=== PATIENT | male | born 1955 | race Caucasian/White ===

== ENCOUNTER 2019-03-12 16:15 | Inpatient (IN) | payer OTHER ==
--- OUTSIDE RECORDS SUMMARY | 2019-03-12 16:28 | XMS REPORT | Continuity of Care Document ---
:1955 Author Organization [email or web address] Information [place] Care Team Providers Name Role Phone [facility] Information Exchange Unavailable Unavailable Problems Problem Status Onset Classification Date Comments Source Date Reported A FIB Active [address] A-FIB Active [address] Unspecified atrial 01/12/[address] J18.9 - PNEUMONIA, Active [facility] UNSPECIFIED ORGANIS [address] Persistent atrial 01/08/[address] AFIB Active [address] AFIB W/RVR Active [address] AORTIC STENOSIS Active [address] I48[address] AORTIC INSUFFICENCY; Active [facility] DILETED CARDIOMYPAT [address] [place] [address] UN[address] Active [address] NEW ONSET CHF Active [address] INFECTION Active [address] Nonrheumatic aortic 01/12/2019 [facility] (valve) insufficiency [facility] Nonrheumatic mitral 02/20/2018 [facility] (valve) insufficiency [facility] Pericardial effusion 02/20/2018 [facility] (noninflammatory) [facility] Atrial fibrillation Resolved Problem 01/12/2019 [facility] (disorder) [facility], LUIS Ash Hypertensive disorder, Resolved Problem 01/12/2019 [facility] systemic arterial Medical (disorder) [place], LUIS Ash Non-Hodgkin's lymphoma Resolved Problem 01/12/20191998 [facility] (disorder) [facility], LUIS Ash Psoriasis (disorder) Resolved Problem 01/12/2019 [facility], LUIS Ash Ventricular tachycardia Resolved Problem 01/12/2019 [facility] (disorder) [facility], LUIS Ash Final: Paroxysmal 05/23/2015 [facility] atrial fibrillation Medical Center Final: Unspecified 06/22/2015 [facility] atrial fibrillation Medical Center Hypercholesterolemia Resolved Problem 01/12/2019 [facility] (disorder) [facility], OPID [place] Unspecified systolic 01/05/2019 [facility] (congestive) heart Medical failure Center shelter (current) use 01/12/2019 [facility] of 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 [facility] Other specified anemias 01/12/2019 [facility] Essential (primary) 01/12/2019 [facility] hypertension [facility] Hyperlipidemia, 01/12/2019 [facility] unspecified [facility] Personal history of 01/12/2019 [facility] non-Hodgkin lymphomas Medical Center Chronic systolic 01/08/2019 [facility] (congestive) heart Medical failure Center Hypertensive heart and 01/08/2019 [facility] chronic kidney disease Medical with heart failure and Center stage 1 through stage 4 chronic kidney disease, or unspecified chronic kidney disease Chronic kidney disease, 01/08/2019 [facility] stage 2 (mild) [facility] Abnormal coagulation 01/08/2019 [facility] profile [facility] Ischemic cardiomyopathy 01/08/2019 [facility] Personal history of 01/08/2019 [facility] nicotine dependence [facility] HEART FAILURE NOS Active [facility] PAROXYSMAL ATRIAL Active [facility] FIBRILLATION [facility] UNSPECIFIED ATRIAL Active [facility] ILLNESS, UNSPECIFIED Active [facility] Medications Medication Details Route Status Patient Ordering Order Source Instructions Provider Date Diltiazem 30 mg, 1 tab, Inactive 12/16[facility] Route: PO, 2019 Medical Drug form: Center TAB, Q6H, Dosing Weight 100, kg, Start date: 12/16/18 18:00:00 CDT, Duration: 30 day, Stop date: 01/15/19 12:00:00 CDTNotes: (Same as: Cardizem) Before meals diltiazem 30 mg oral 30 mg=1 tab, Active 12/16[facility] tablet PO, Q6H, # 120 2019 Medical tab, 1 Center Refill(s) Furosemide 40 MG 40 mg=1 tab, Active 12/16[facility] Oral Tablet [Lasix] PO, BID, 0 2018 Medical Refill(s) Center Aspirin 81 MG 81 mg=1 tab, Active 12/16[facility] Enteric Coated PO, Daily, 0 2018 Medical Tablet Refill(s) [facility] 24 HR Metoprolol 100 mg=1 tab, Active 12/16[facility] Tartrate 100 MG PO, BID, # 180 2019 Medical Extended Release tab, 0 Center Tablet [Toprol] Refill(s) dofetilide 125 microgram, Inactive [place] 1 cap, Route: 2019 Medical PO, Drug form: [place] CAP, Q12H, Dosing Weight 100, kg, Priority: NOW, Start date: 12/16/18 9:12:00 CDT, Duration: 30 day, Stop date: 01/15/19 9:00:00 CDTNotes: (Same as: Tikosyn) Providers should enter the orders via the "Dofetilide Initiation Orders MPP" to ensure compliance with the REMS program. Potassium Chloride 20 mEq, 1 tab, Inactive [place] Route: PO, 2018 Medical Drug form: [place] ERTAB, ONCE, Dosing Weight 100, kg, Start date: 12/16/18 6:18:00 CDT, Stop date: 12/16/18 6:18:00 CDTNotes: (Same as: K-Dur 20) "Do Not Crush" Give with food and full glass of water For patients unable to swallow tablet, dissolve in one half glass of water. Allow about 2 minutes for the tablets to disintegrate. Stir before giving to prepare slurry and administer. Please exclude Patients with feeding tube less than 14 [place] (Dobhoff, J-tube etc) and pediatric and patients. dofetilide 125 microgram, No Longer [place] Route: PO, Active 2018 Medical Drug form: [place] BENNETT, Q12H, Dosing Weight 100, kg, Start date: 12/15/18 17:00:00 CDT, Duration: 30 day, Stop date: 01/14/19 9:00:00 CDTNotes: (Same as: Tikosyn) Providers should enter the orders via the "Dofetilide Initiation Orders MPP" to ensure compliance with the REMS program. Vitamin E 400 IntlUnit, No Longer [place] 1 cap, Route: Active 2019 Medical PO, Drug form: [place] BENNETT, QSun, Dosing Weight 100, kg, Start date: 12/15/18 9:00:00 CDT, Duration: 30 day, Stop date: 01/12/19 9:00:00 CDT Aspirin 81 mg, 1 tab, No Longer [place] Route: PO, Active 2018 Medical Drug form: [place] ECTAB, Daily, Dosing Weight 100, kg, Start date: 12/15/18 9:00:00 CDT, Duration: 30 day, Stop date: 01/13/19 9:00:00 CDTNotes: Do not crush or chew. (Same As: Ecotrin) Calcium Gluconate 3 gm, 30 mL, No Longer [place] Route: IVPB, Active 2018 Medical PRN, Dosing Center Weight 100, kg, PRN Abnormal Lab Result, For NON-ICU Patients Only., Start date: 12/15/18 5:13:00 CDT, Duration: 30 day, Stop date: 01/14/19 5:12:00 CDTNotes: WASTE: F/P - Sink; E - Municipal Trash Bin Magnesium Oxide 800 mg, 2 tab, No Longer [place] Route: PO, Active 2018 Medical Drug form: [place] TAB, PRN, Dosing Weight 100, kg, PRN Abnormal Lab Result, For NON-ICU Patients Only., Start date: 12/15/18 5:13:00 CDT, Duration: 30 day, Stop date: 01/14/19 5:12:00 CDTNotes: (Same as: Mag-Ox 400) Magnesium oxide [id number] elemental magnesium Dose=____mg magnesium oxide (___mg elemental magnesium) Magnesium Sulfate 2 gm, 50 mL, No Longer [place] Route: IVPB, Active 2018 Medical Drug form: [place] INJ, PRN, Dosing Weight 100, kg, PRN Abnormal Lab Result, For NON-ICU Patients Only., Start date: 12/15/18 5:13:00 CDT, Duration: 30 day, Stop date: 01/14/19 5:12:00 CDTNotes: WASTE: F/P - Sink; E - Municipal Trash Bin potassium phosphate 30 mmol, 10 No Longer [place] mL, Route: Active 2018 Medical IVPB, PRN, Center Dosing Weight 100, kg, PRN Abnormal Lab Result, For NON-ICU Patients Only., Start date: 12/15/18 5:13:00 CDT, Duration: 30 day, Stop date: 01/14/19 5:12:00 CDTNotes: (Same as: K Phosphate.) Do not infuse phosphorous concurrently in the same line as TPN or IVF that contains calcium. For double lumen central lines, phosphorous may be infused in a separate lumen from TPN. 1 mMol phoshate has 1.47 mEq potassium Infuse over 4 hours sodium phosphate 15 mmol, 5 mL, No Longer [place] Route: IVPB, Active 2018 Medical PRN, Dosing Center Weight 100, kg, PRN Abnormal Lab Result, For NON-ICU Patients Only., Start date: 12/15/18 5:13:00 CDT, Duration: 30 day, Stop date: 01/14/19 5:12:00 CDTNotes: Infuse over 4 hour. Do not infuse phosphorous concurrently in the same line as TPN or IVF that contains calcium. For double lumen central lines, phosphorous may be infused in a separate lumen from TPN. Potassium Chloride 20 mEq, 15 mL, No Longer [place] Route: NJ, Active 2018 Medical Drug form: [place] LIQ, PRN, Dosing Weight 100, kg, PRN Abnormal Lab Result, For NON-ICU Patients Only, Start date: 12/15/18 5:13:00 CDT, Duration: 30 day, Stop date: 01/14/19 5:12:00 CDTNotes: (Same as: Potassium Chloride) potassium 2 pkt, Route: No Longer [place] phosphate-sodium PO, Drug Form: Active 2018 Medical phosphate 250 mg-280 PDR/REC, Center mg-160 mg oral Dosing Weight powder for 100, kg, PRN, reconstitution PRN Abnormal Lab Result, For NON-ICU Patients Only, Start date: 12/15/18 5:13:00 CDT, Duration: 30 day, Stop date: 01/14/19 5:12:00 CDTNotes: (Same as: Phos-NaK) Each 1.5 gm pkt has 250mg phosphorous. Mix w/2.5oz water and stir. dofetilide 250 microgram, Inactive [place] 1 cap, Route: 2019 Medical PO, Drug form: [place] CAP, TID, Dosing Weight 100, kg, Start date: 12/15/18 1:10:00 CDT, Duration: 30 day, Stop date: 01/14/19 1:00:00 CDTNotes: (Same as: Tikosyn) Providers should enter the orders via the "Dofetilide Initiation Orders MPP" to ensure compliance with the REMS program. dofetilide 250 microgram, No Longer [facility] 1 cap, Route: Active 2018 Medical PO, Drug form: Center CAP, TID, Dosing Weight 100, kg, Start date: 12/14/18 17:40:00 CDT, Duration: 30 day, Stop date: 01/13/19 17:00:00 CDTNotes: (Same as: Tikosyn) Providers should enter the orders via the "Dofetilide Initiation Orders MPP" to ensure compliance with the REMS program. 24 HR Metoprolol 100 mg, 1 tab, No Longer [place] Tartrate 100 MG Route: PO, Active 2018 Medical Extended Release Drug form: Center Tablet [Toprol] ERTAB, BID, Start date: 12/14/18 9:00:00 CDT, Duration: 30 day, Stop date: 01/12/19 21:00:00 CDTNotes: (Same as: Toprol XL) May split tab, but do not crush. dofetilide 250 microgram, Inactive [facility] 1 cap, Route: 2019 Medical PO, Drug form: Center CAP, TID, Dosing Weight 100, kg, Start date: 12/14/18 8:00:00 CDT, Duration: 30 day, Stop date: 01/12/19 22:00:00 CDTNotes: (Same as: Tikosyn) Providers should enter the orders via the "Dofetilide Initiation Orders MPP" to ensure compliance with the REMS program. potassium chloride 40 mEq, 2 tab, Inactive [place] 20 mEq oral tablet, Route: PO, 2019 Medical extended release Drug form: Center ERTAB, ONCE, Dosing Weight 100, kg, Start date: 12/14/18 7:29:00 CDT, Stop date: 12/14/18 7:29:00 CDTNotes: (Same as: K-Dur 20) "Do Not Crush" Give with food and full glass of water For patients unable to swallow tablet, dissolve in one half glass of water. Allow about 2 minutes for the tablets to disintegrate. Stir before giving to prepare slurry and administer. Please exclude Patients with feeding tube less than 14 [place] (Halley Joyner-tube etc) and pediatric and patients. dofetilide 500 microgram, Inactive [place] 1 cap, Route: 2019 Medical PO, Drug form: [place] CAP, ONCE, Dosing Weight 100, kg, Start date: 12/13/18 21:00:00 CDT, Stop date: 12/13/18 21:00:00 CDTNotes: (Same as: Tikosyn) Providers should enter the orders via the "Dofetilide Initiation Orders MPP" to ensure compliance with the REMS program. 24 HR Metoprolol 100 mg, 1 tab, Inactive [place] Tartrate 100 MG Route: PO, 2018 Medical Extended Release Drug form: [place] Tablet [Toprol] ERTAB, Daily, Start date: 12/13/18 9:00:00 CDT, Duration: 30 day, Stop date: 01/11/19 9:00:00 CDTNotes: (Same as: Toprol XL) May split tab, but do not crush. Tylenol 650 mg, 2 tab, No Longer [place] Route: PO, Active 2018 Medical Drug form: Center TAB, Q6H, Dosing Weight 100, kg, PRN Pain 1-3/Temp > 100.4 F, Start date: 12/12/18 19:08:00 CDT, Duration: 30 day, Stop date: 01/11/19 19:07:00 CDTNotes: Do not exceed 4 gm/day. (Same as: Tylenol) Folic Acid 1 mg, Route: Inactive [facility] PO, Drug form: 2019 Medical TAB, Daily, Center Dosing Weight 100, kg, Start date: 12/12/18 9:00:00 CDT, Duration: 30 day, Stop date: 01/10/19 9:00:00 CDT Glucosamine 1,500 mg, Inactive [facility] Route: PO, 2019 Medical Drug form: Center TAB, Daily, Dosing Weight 100, kg, Start date: 12/12/18 9:00:00 CDT, Duration: 30 day, Stop date: 01/10/19 9:00:00 CDT Cholecalciferol 2000 4,000 No Longer [place] UNT Oral Tablet IntlUnit, 2 Active 2019 Medical tab, Route: Center PO, Drug form: TAB, Daily, Dosing Weight 100, kg, Start date: 12/12/18 9:00:00 CDT, Duration: 30 day, Stop date: 01/10/19 9:00:00 CDTNotes: (Same as: Vitamin D3) Allopurinol 300 mg, 1 tab, No Longer [place] Route: PO, Active 2019 Medical Drug form: Center TAB, Daily, Dosing Weight 97.727, kg, Start date: 12/12/18 9:00:00 CDT, Duration: 30 day, Stop date: 01/10/19 9:00:00 CDTNotes: (Same as: Zyloprim) multivitamin with 1 tab, Route: No Longer [place] minerals PO, Drug Form: Active 2019 Medical TAB, Dosing Center Weight 100, kg, Daily, Start date: 12/12/18 9:00:00 CDT, Duration: 30 day, Stop date: 01/10/19 9:00:00 CDTNotes: (Same as:Thera-M, Theragran-M) WASTE: F/P - Black; E - Municipal Trash Bin Give with food. valsartan 80 mg, 1 tab, No Longer [place] Route: PO, Active 2018 Medical Drug form: [place] TAB, Daily, Dosing Weight 97.727, kg, Start date: 12/12/18 9:00:00 CDT, Duration: 30 day, Stop date: 01/10/19 9:00:00 CDTNotes: Same as Diovan 24 HR Metoprolol 75 mg, 3 tab, Inactive [place] Tartrate 25 MG Route: PO, 2019 Medical Extended Release Drug form: [place] Tablet [Toprol] ERTAB, Daily, Start date: 12/12/18 9:00:00 CDT, Duration: 30 day, Stop date: 01/10/19 9:00:00 CDTNotes: (Same as: Toprol XL) Do Not Crush Vitamin C 500 mg, 1 tab, No Longer [place] Route: PO, Active 2019 Medical Drug form: [place] TAB, Daily, Dosing Weight 100, kg, Start date: 12/12/18 9:00:00 CDT, Duration: 30 day, Stop date: 01/10/19 9:00:00 CDTNotes: (Same as: Vitamin C) Aspirin 325 MG Oral 325 mg, 1 tab, No Longer [facility] Tablet Route: PO, Active 2018 Medical Drug form: [place] TAB, Daily, Dosing Weight 100, kg, Start date: 12/12/18 9:00:00 CDT, Duration: 30 day, Stop date: 01/10/19 9:00:00 CDTNotes: Take with food. rosuvastatin 10 mg, 1 tab, No Longer [facility] Route: PO, Active 2018 Medical Drug form: [place] TAB, Bedtime, Dosing Weight 97.727, kg, Start date: 12/11/18 21:00:00 CDT, Duration: 30 day, Stop date: 01/09/19 21:00:00 CDTNotes: (Same As: Crestor) dofetilide 250 microgram, No Longer [facility] 1 cap, Route: Active 2018 Medical PO, Drug form: [place] CAP, Q12H, Dosing Weight 100, kg, Start date: 12/11/18 21:00:00 CDT, Duration: 30 day, Stop date: 01/10/19 9:00:00 CDTNotes: (Same as: Tikosyn) Providers should enter the orders via the "Dofetilide Initiation Orders MPP" to ensure compliance with the REMS program. Xarelto 20 mg, 1 tab, No Longer [facility] Route: PO, Active 2018 Medical Drug form: [place] TAB, QPM, Dosing Weight 97.727, kg, Start date: 12/11/18 17:00:00 CDT, Duration: 30 day, Stop date: 01/09/19 17:00:00 CDTNotes: (Same as: Xarelto) Administer with food Furosemide 40 MG 40 mg, 1 tab, No Longer [facility] Oral Tablet [Lasix] Route: PO, Active 2018 Medical Drug form: [place] TAB, BID, Dosing Weight 97.727, kg, Start date: 12/11/18 17:00:00 CDT, Duration: 30 day, Stop date: 01/10/19 9:00:00 CDTNotes: (Same as: Lasix) May cause GI upset. Give with food or milk. potassium chloride 40 mEq, 2 tab, Inactive [place] 20 mEq oral tablet, Route: PO, 2019 Medical extended release Drug form: [place] ERTAB, ONCE, Dosing Weight 100, kg, Start date: 12/11/18 16:59:00 CDT, Stop date: 12/11/18 16:59:00 CDTNotes: (Same as: K-Dur 20) "Do Not Crush" Give with food and full glass of water For patients unable to swallow tablet, dissolve in one half glass of water. Allow about 2 minutes for the tablets to disintegrate. Stir before giving to prepare slurry and administer. Please exclude Patients with feeding tube less than 14 [place] (Dobhoff, J-tube etc) and pediatric and patients. diltiazem 30 mg oral 30 mg=1 tab, No Longer [place] tablet PO, Q6H, # 120 Active 2018 Medical tab, 0 Center Refill(s), Pharmacy: [facility]/pharmacy #[id number] Atrial Fibrillation 80 mg, 1 tab, Inactive [place] Sotalol Route: PO, 2018 Medical Hydrochloride 80 MG Drug form: [place] Oral Tablet TAB, Q12H, Dosing Weight 97.813, kg, Priority: NOW, Start date: 06/20/18 13:45:00 CAR BRACER, Duration: 30 day, Stop date: 07/20/18 9:00:00 CSTNotes: (Same As: Betapace) Furosemide 40 MG 40 mg, 1 tab, No Longer [place] Oral Tablet [Lasix] Route: PO, Active 2017 Medical Drug form: [place] TAB, Daily, Dosing Weight 100, kg, Start date: 06/20/18 9:00:00 CAR BRACER, Duration: 30 day, Stop date: 07/19/18 9:00:00 CSTNotes: (Same as: Lasix) May cause GI upset. Give with food or milk. Allopurinol 300 mg, 1 tab, No Longer [place] Route: PO, Active 2017 Medical Drug form: [place] TAB, Daily, Dosing Weight 100, kg, Start date: 06/20/18 9:00:00 CAR BRACER, Duration: 30 day, Stop date: 07/19/18 9:00:00 CSTNotes: (Same as: Zyloprim) Vitamin E 400 IntlUnit, No Longer [facility] 1 cap, Route: Active 2018 Medical PO, Drug form: [place] CAP, qWeek, Dosing Weight 100, kg, Start date: 06/20/18 9:00:00 CAR BRACER, Duration: 30 day, Stop date: 07/18/18 9:00:00 CAR BRACER Hydrochlorothiazide 1 tab, Route: No Longer [facility] 12.5 MG / valsartan PO, Dosing Active 2018 Medical 80 MG Oral Tablet Weight 100, Center [Diovan HCT 80/12.5] kg, Daily, Start date: 06/20/18 9:00:00 CAR BRACER, Duration: 30 day, Stop date: 07/19/18 9:00:00 CAR BRACER Vitamin D3 2000 intl 2,000 No Longer [facility] units oral tablet IntlUnit, 2 Active 2017 Medical tab, Route: [place] PO, Drug form: TAB, Daily, Dosing Weight 100, kg, Start date: 06/20/18 9:00:00 CAR BRACER, Duration: 30 day, Stop date: 07/19/18 9:00:00 CSTNotes: Same as : Vitamin D3 Folic Acid 1 mg, 1 tab, No Longer [facility] Route: PO, Active 2017 Medical Drug form: Center TAB, Daily, Dosing Weight 100, kg, Start date: 06/20/18 9:00:00 CAR BRACER, Duration: 30 day, Stop date: 07/19/18 9:00:00 CSTNotes: (Same as: Folvite) Atrial Fibrillation 160 mg, 2 tab, No Longer [facility] Sotalol Route: PO, Active 2018 Medical Hydrochloride 80 MG Drug form: Center Oral Tablet TAB, Q12H, Dosing Weight 100, kg, Start date: 06/20/18 9:00:00 CAR BRACER, Duration: 30 day, Stop date: 07/19/18 21:00:00 CSTNotes: (Same As: Betapace) Vitamin C 500 mg, 1 tab, No Longer [facility] Route: PO, Active 2017 Medical Drug form: Center TAB, Daily, Dosing Weight 100, kg, Start date: 06/20/18 9:00:00 CAR BRACER, Duration: 30 day, Stop date: 07/19/18 9:00:00 CSTNotes: (Same as: Vitamin C) Microzide 12.5 mg, 1 No Longer [place] cap, Route: Active 2017 Medical PO, Drug form: [place] CAP, Daily, Start date: 06/20/18 9:00:00 CAR BRACER, Duration: 30 day, Stop date: 07/19/18 9:00:00 CAR BRACER Aspirin 325 mg, 1 tab, No Longer [facility] Route: PO, Active 2017 Medical Drug form: [place] ECTAB, Daily, Dosing Weight 100, kg, Priority: Routine, Start date: 06/20/18 9:00:00 CAR BRACER, Duration: 30 day, Stop date: 07/19/18 9:00:00 CSTNotes: (Do Not Crush) Do not crush or chew. Glucosamine 1,500 mg, No Longer [facility] Chondroitin MSM Route: PO, Active 2017 Medical Complex Dosing Weight [place] 100, kg, Daily, Start date: 06/20/18 9:00:00 CAR BRACER, Duration: 30 day, Stop date: 07/19/18 9:00:00 CAR BRACER valsartan 80 mg, 1 tab, No Longer [facility] Route: PO, Active 2017 Medical Drug form: [place] TAB, Daily, Start date: 06/20/18 9:00:00 CAR BRACER, Duration: 30 day, Stop date: 07/19/18 9:00:00 CAR BRACER Atrial Fibrillation 160 mg, 2 tab, No Longer [facility] Sotalol Route: PO, Active 2017 Medical Hydrochloride 80 MG Drug form: [place] Oral Tablet TAB, Q12H, Dosing Weight 100, kg, Start date: 06/19/18 23:00:00 CAR BRACER, Duration: 30 day, Stop date: 07/19/18 11:00:00 CAR BRACER Crestor 10 mg, 1 tab, No Longer [facility] Route: PO, Active 2017 Medical Drug form: [place] TAB, Bedtime, Dosing Weight 100, kg, Start date: 06/19/18 21:00:00 CAR BRACER, Duration: 30 day, Stop date: 07/18/18 21:00:00 CSTNotes: (Same As: Crestor) sotalol 160 mg oral 160 mg=1 tab, No Longer [facility] tablet PO, BID Active 2017 [facility] Betapace AF 80 mg, 1 tab, Inactive [place] Route: PO, 2017 Medical Drug form: [place] TAB, ONCE, Dosing Weight 100, kg, Priority: NOW, Start date: 06/19/18 18:02:00 CAR BRACER, Stop date: 06/19/18 18:02:00 CAR BRACER Diltiazem 30 mg, 1 tab, No Longer [place] Route: PO, Active 2017 Medical Drug form: [place] TAB, Q6H, Dosing Weight 100, kg, Start date: 06/19/18 18:00:00 CAR BRACER, Duration: 30 day, Stop date: 07/19/18 12:00:00 CAR BRACER Xarelto 20 mg, 1 tab, No Longer [place] Route: PO, Active 2017 Medical Drug form: [place] TAB, QPM, Dosing Weight 100, kg, Start date: 06/19/18 17:00:00 CAR BRACER, Duration: 30 day, Stop date: 07/18/18 17:00:00 CSTNotes: (Same as: Xarelto) Administer with food Atrial Fibrillation 80 mg, 1 tab, Inactive [place] Sotalol Route: PO, 2017 Medical Hydrochloride 80 MG Drug form: [place] Oral Tablet TAB, ONCE, Dosing Weight 100, kg, Priority: NOW, Start date: 06/19/18 16:16:00 CAR BRACER, Stop date: 06/19/18 16:16:00 CSTNotes: Non-Formulary Drug (Same As: Betapace AF) Tylenol 650 mg, 20.3 No Longer [place] mL, Route: PO, Active 2017 Medical Drug form: [place] LIQ, Q6H, Dosing Weight 100, kg, PRN Pain Score 1-5, Start date: 06/19/18 15:51:00 CAR BRACER, Duration: 30 day, Stop date: 07/19/18 15:50:00 CSTNotes: Max acetaminophen= 4000mg/day (4 gm/day). (Same as: Tylenol) Albuterol / 3 mL, Route: No Longer [place] Ipratropium NEB, Drug Active 2017 Medical Form: SOLN, [place] Dosing Weight 100, kg, Q6H, PRN Other -See Comment, Start date: 06/19/18 15:44:00 CAR BRACER, Duration: 30 day, Stop date: 01/11/19 15:43:00 CAR BRACER, shorthenss of breathNotes: (Same as: Duoneb) Versed 3 mg, Route: No Longer [place] IVP, ONCE, Active 2017 Medical Dosing Weight Center 100, kg, Start date: 06/17/18 15:52:00 CAR BRACER, Stop date: 06/17/18 15:52:00 CAR BRACER Rosuvastatin calcium 10 mg=1 tab, Active [place] 10 MG Oral Tablet PO, Daily, 0 2017 Medical [Crestor] Refill(s) Center allopurinol 300 mg 300 mg=1 tab, Active [place] oral tablet PO, Daily, 0 2017 Medical Refill(s) Center Vitamin E 400 IntlUnit, No Longer [place] 1 cap, Route: Active 2014 Medical PO, Drug form: [place] DONALD, QSun, Dosing Weight 94.318, kg, Start date: 06/20/15 9:00:00, Duration: 30 day, Stop date: 07/18/15 9:00:00 valsartan 80 mg oral 80 mg=1 tab, Active [place] tablet PO, Daily, # 2015 Medical 60 tab, 0 Center Refill(s) rivaroxaban 20 mg 20 mg=1 tab, Active [place] oral tablet PO, QPM, # 60 2014 Medical tab, 0 Center Refill(s) Furosemide 40 MG 40 mg=1 tab, Active [place] Oral Tablet [Lasix] PO, Daily, # 2015 Medical 60 tab, 0 Center Refill(s) sotalol 120 mg oral 120 mg=1 tab, Active [place] tablet PO, BID, # 180 2014 Medical tab, 0 Center Refill(s) 24 HR Metoprolol 25 mg=1 tab, Inactive [place] Tartrate 25 MG PO, Daily, # 2015 Medical Extended Release 90 tab, 0 Center Tablet [Toprol] Refill(s) Furosemide 40 MG 40 mg=1 tab, Inactive [place] Oral Tablet [Lasix] PO, Daily, # 2015 Medical 60 tab, 0 Center Refill(s) cholecalciferol 2000 2,000 Active [place] intl units oral IntlUnit=1 2014 Medical capsule cap, PO, BID, Center 0 Refill(s) Vitamin E 400 IntlUnit=1 Active [place] cap, PO, QSun, 2015 Medical 0 Refill(s) Center sotalol 80 mg oral 160 mg=2 tab, Inactive [place] tablet PO, Q12H, # 2015 Medical 240 tab, 0 Center Refill(s) valsartan 80 mg oral 40 mg=0.5 tab, Inactive [place] tablet PO, Daily, # 2015 Medical 30 tab, 0 Center Refill(s) rivaroxaban 20 mg 20 mg=1 tab, Inactive [place] oral tablet PO, QPM, # 60 2014 Medical tab, 0 Center Refill(s) Betapace 120 mg, 1.5 No Longer [place] tab, Route: Active 2014 Medical PO, Drug form: Center TAB, Q12H, Start date: 06/18/15 21:00:00, Stop date: 07/18/15 9:00:00Notes: (Same As: Betapace) Sotalol 40 mg, 0.5 Inactive [place] tab, Route: 2014 Medical PO, Drug form: Center TAB, ONCE, Dosing Weight 91.364, kg, Priority: STAT, Start date: 06/18/15 11:03:00, Stop date: 06/18/15 11:03:00Notes: (Same As: Betapace) Metoprolol 2.5 mg, 2.5 No Longer [place] mL, Route: Active 2014 Medical IVP, Drug Center form: INJ, Q4H, Dosing Weight 92.472, kg, PRN Tachycardia, Start date: 06/16/15 17:12:00, Duration: 30 day, Stop date: 07/16/15 17:11:00Notes: (Same as: Lopressor) Push over 2 minutes Sotalol 160 mg, Route: No Longer [place] Hydrochloride 120 MG PO, Drug form: Active 2014 Medical Oral Tablet TAB, Q12H, Center Dosing Weight 92.472, kg, Start date: 06/16/15 9:00:00, Duration: 30 day, Stop date: 07/15/15 21:00:00Notes: (Same As: Betapace) potassium chloride 20 mEq, 1 tab, Inactive [place] Route: PO, 2014 Medical Drug form: [facility] ERTAB, ONCE, Dosing Weight 92.472, kg, Start date: 06/16/15 6:26:00, Stop date: 06/16/15 6:26:00Notes: (Same as: K-Dur 20) "Do Not Crush" With food and full glass of water Mucinex 600 mg, 1 tab, No Longer [place] Route: PO, Active 2014 Medical Drug form: [facility] ERTAB, Q12H, Dosing Weight 92.472, kg, Start date: 06/15/15 21:00:00, Duration: 3 day, Stop date: 06/18/15 9:00:00Notes: (Same as: Guaifenesin [place], Humibid [place], Mucinex) "Do Not Crush" Take medication with plenty of water. Protonix 40 mg, 1 tab, No Longer [place] Route: PO, Active 2014 Medical Drug form: [facility] ECTAB, Before Dinner, Dosing Weight 92.472, kg, Start date: 06/15/15 16:30:00, Duration: 30 day, Stop date: 07/14/15 16:30:00Notes: Tablet should not be chewed or crushed. (Same as: Protonix) potassium chloride 20 mEq, Route: Inactive [place] PO, Drug form: 2014 Medical ERTAB, ONCE, [facility] Dosing Weight 92.472, kg, Start date: 06/15/15 9:53:00, Stop date: 06/15/15 9:53:00 Diovan 80 mg, 1 tab, No Longer [facility] Route: PO, Active 2014 Medical Drug form: Center TAB, Daily, Dosing Weight 94.318, kg, Start date: 06/15/15 9:00:00, Stop date: 07/14/15 9:00:00Notes: Same as Diovan multivitamin 1 tab, Route: No Longer [place] PO, Drug Form: Active 2014 Medical TAB, Dosing Center Weight 94.318, kg, Daily, Start date: 06/15/15 9:00:00, Duration: 30 day, Stop date: 07/14/15 9:00:00Notes: (Same as:Thera) Take with food. Aspirin 325 mg, 1 tab, No Longer [facility] Route: PO, Active 2014 Medical Drug form: [facility] ECTAB, Daily, Dosing Weight 94.318, kg, Start date: 06/15/15 9:00:00, Duration: 30 day, Stop date: 07/14/15 9:00:00Notes: (Do Not Crush) Do not crush or chew. Glucosamine 1,500 mg, No Longer [facility] Chondroitin MSM Route: PO, Active 2014 Medical Complex Dosing Weight Center 94.318, kg, Daily, Start date: 06/15/15 9:00:00, Duration: 30 day, Stop date: 07/14/15 9:00:00 potassium chloride 20 mEq, 1 tab, No Longer [facility] Route: PO, Active 2014 Medical Drug form: [facility] ERTAB, Daily, Dosing Weight 94.318, kg, Start date: 06/15/15 9:00:00, Duration: 30 day, Stop date: 07/14/15 9:00:00Notes: (Same as: K-Dur 20) "Do Not Crush" With food and full glass of water Furosemide 40 MG 40 mg, 1 tab, No Longer [facility] Oral Tablet [Lasix] Route: PO, Active 2014 Medical Drug form: [facility] TAB, Daily, Dosing Weight 94.318, kg, Start date: 06/15/15 9:00:00, Duration: 30 day, Stop date: 07/14/15 9:00:00Notes: (Same as: Lasix) May cause GI upset. Give with food or milk. Folic Acid 1 mg, 1 tab, No Longer [facility] Route: PO, Active 2014 Medical Drug form: [facility] TAB, Daily, Dosing Weight 94.318, kg, Start date: 06/15/15 9:00:00, Duration: 30 day, Stop date: 07/14/15 9:00:00Notes: (Same as: Folvite) glucosamine 1,500 mg, 3 No Longer [facility] cap, Route: Active 2014 Medical PO, Drug form: [facility] CAP, Daily, Start date: 06/15/15 9:00:00, Duration: 30 day, Stop date: 07/14/15 9:00:00 Vitamin C 500 mg, 2 tab, No Longer [place] Route: CHEW, Active 2014 Medical Drug form: [facility] TAB, Daily, Dosing Weight 94.318, kg, Start date: 06/15/15 9:00:00, Duration: 30 day, Stop date: 07/14/15 9:00:00Notes: (Same as: Vitamin C) potassium chloride 20 mEq, 1 tab, Inactive [place] Route: PO, 2014 Medical Drug form: [facility] ERTAB, ONCE, Dosing Weight 92.472, kg, Start date: 06/15/15 8:21:00, Stop date: 06/15/15 8:21:00Notes: (Same as: K-Dur 20) "Do Not Crush" With food and full glass of water Crestor 10 mg, 1 tab, No Longer [place] Route: PO, Active 2014 Medical Drug form: [facility] TAB, Bedtime, Dosing Weight 94.318, kg, Start date: 06/14/15 21:00:00, Duration: 30 day, Stop date: 07/13/15 21:00:00Notes: (Same As: Crestor) Non-formulary Sotalol 80 mg, 1 tab, No Longer [place] Route: PO, Active 2014 Medical Drug form: [facility] TAB, Q12H, Dosing Weight 94.318, kg, Start date: 06/14/15 17:00:00, Stop date: 07/14/15 5:00:00Notes: (Same As: Betapace) Xarelto 20 mg, 1 tab, No Longer [place] Route: PO, Active 2014 Medical Drug form: [facility] TAB, QPM, Dosing Weight 94.318, kg, Start date: 06/14/15 17:00:00, Duration: 30 day, Stop date: 07/13/15 17:00:00Notes: (Same as: Xarelto) Administer with food 24 HR Metoprolol 25 mg, 1 tab, No Longer [place] Tartrate 50 MG Route: PO, Active 2014 Medical Extended Release Drug form: [facility] Tablet [Toprol] ERTAB, BID, Start date: 06/14/15 17:00:00, Stop date: 07/14/15 9:00:00Notes: (Same as: Toprol XL) Do Not Crush Vitamin D3 2,000 No Longer [place] IntlUnit, 1 Active 2014 Medical cap, Route: [facility] PO, Drug form: CAP, BID, Dosing Weight 94.318, kg, Start date: 06/14/15 17:00:00, Duration: 30 day, Stop date: 07/14/15 9:00:00Notes: Same as: Vitamin D3 potassium chloride 20 mEq, 1 tab, No Longer [place] Route: PO, Active 2014 Medical Drug form: [facility] ERTAB, Daily, Dosing Weight 94.318, kg, Start date: 05/21/15 9:00:00, Duration: 30 day, Stop date: 06/19/15 9:00:00Notes: (Same as: K-Dur 20) "Do Not Crush" With food and full glass of water Multaq 400 mg, 1 tab, Inactive [place] Route: PO, 2014 Medical Drug form: [facility] TAB, BID, Dosing Weight 94.318, kg, Start date: 05/20/15 17:00:00, Duration: 30 day, Stop date: 06/19/15 9:00:00Notes: Same as: Multaq potassium chloride 20 mEq, PO, Active [place] Daily, 0 2014 Medical Refill(s) [facility] dronedarone 400 mg 400 mg=1 tab, Active [place] oral tablet PO, BID, 0 2014 Medical Refill(s) [facility] 24 HR Metoprolol PO, BID, 0 Active [facility] Tartrate 50 MG Refill(s) 2014 Medical Extended Release [facility] Tablet [Toprol] Potassium Chloride 20 mEq, 1 tab, Inactive [place] 20 MEQ Extended Route: PO, 2014 Medical Release Tablet Drug form: [facility] ERTAB, ONCE, Dosing Weight 94.318, kg, Start date: 05/20/15 10:42:00, Stop date: 05/20/15 10:42:00Notes: (Same as: K-Dur 20) "Do Not Crush" With food and full glass of water Furosemide 40 MG 40 mg, 1 tab, No Longer [place] Oral Tablet Route: PO, Active 2014 Medical Drug form: Center TAB, Every Other Day, Dosing Weight 94.318, kg, Start date: 05/19/15 9:00:00, Duration: 30 day, Stop date: 06/16/15 9:00:00Notes: (Same as: Lasix) May cause GI upset. Give with food or milk. Vitamin D3 2,000 unit, 2 No Longer [place] tab, Route: Active 2014 Medical PO, Drug form: Center TAB, Daily, Dosing Weight 94.318, kg, Start date: 05/19/15 9:00:00, Duration: 30 day, Stop date: 06/17/15 9:00:00Notes: Same as : Vitamin D3 Lidocaine 2 gm, 250 mL, No Longer [place] Rate: Infuse Active 2014 Medical as directed, Center Dosing Weight 94.318, kg, Route: IV, Total Volume: 250 mL, Start date: 05/19/15 8:00:00, Duration: 30 day, Stop date: 06/18/15 7:59:00, Replace Every: 24 hrNotes: Premix final conc=8 mg/ml (Same as: Xylocaine Premix) Vitamin D3 2000 intl 1,000 unit, 1 Inactive [place] units oral tablet tab, Route: 2014 Medical PO, Drug form: Center TAB, Daily, Dosing Weight 94.318, kg, Start date: 05/18/15 9:00:00, Duration: 30 day, Stop date: 06/16/15 9:00:00Notes: Same as : Vitamin D3 Vitamin C 500 mg, 2 tab, No Longer [place] Route: PO, Active 2014 Medical Drug form: Center TAB, Daily, Dosing Weight 94.318, kg, Start date: 05/18/15 9:00:00, Duration: 30 day, Stop date: 06/16/15 9:00:00Notes: (Same as: Vitamin C) Aspirin 325 MG Oral 325 mg, 1 tab, No Longer [place] Tablet Route: PO, Active 2014 Medical Drug form: Center TAB, Daily, Dosing Weight 94.318, kg, Start date: 05/18/15 9:00:00, Duration: 30 day, Stop date: 06/16/15 9:00:00Notes: Take with food. Vitamin E 400 IntlUnit, No Longer [place] 1 cap, Route: Active 2014 Medical PO, Drug form: [facility] CAP, Daily, Dosing Weight 94.318, kg, Start date: 05/18/15 9:00:00, Duration: 30 day, Stop date: 06/16/15 9:00:00 Diovan 320 mg, 2 tab, No Longer [place] Route: PO, Active 2014 Medical Drug form: Center TAB, Daily, Dosing Weight 94.318, kg, Start date: 05/18/15 9:00:00, Duration: 30 day, Stop date: 06/16/15 9:00:00Notes: Same as Diovan 24 HR Metoprolol 50 mg, 1 tab, No Longer [place] Tartrate 25 MG Route: PO, Active 2014 Medical Extended Release Drug form: [facility] Tablet [Toprol] ERTAB, BID, Start date: 05/18/15 9:00:00, Stop date: 06/16/15 21:00:00Notes: (Same as: Toprol XL) May split tab, but do not crush. Centrum Route: PO, No Longer [place] Drug Form: Active 2014 Medical TAB, Dosing Center Weight 94.318, kg, Daily, Start date: 05/18/15 9:00:00, Duration: 30 day, Stop date: 06/16/15 9:00:00Notes: (Same as:Thera-M, Theragran-M) Give with food. Glucosamine 1,500 mg, 3 No Longer [place] cap, Route: Active 2014 Medical PO, Drug form: [facility] CAP, Daily, Dosing Weight 94.318, kg, Start date: 05/18/15 9:00:00, Duration: 30 day, Stop date: 06/16/15 9:00:00 Folic Acid 1 mg, 1 tab, No Longer [place] Route: PO, Active 2014 Medical Drug form: [facility] TAB, Daily, Dosing Weight 94.318, kg, Start date: 05/18/15 9:00:00, Duration: 30 day, Stop date: 06/16/15 9:00:00Notes: (Same as: Folvite) dofetilide 250 microgram, Inactive [place] 1 cap, Route: 2015 Medical PO, Drug form: [facility] CAP, ONCE, Start date: 05/18/15 8:43:00, Stop date: 05/18/15 8:43:00Notes: (Same as: Tikosyn) Providers should enter the orders via the "Dofetilide Initiation Orders MPP" to ensure compliance with the [employer]S program. Mag-Ox 400 400 mg, 1 tab, Inactive [place] Route: PO, 2014 Medical Drug form: [facility] TAB, ONCE, Dosing Weight 94.318, kg, Start date: 05/18/15 8:23:00, Stop date: 05/18/15 8:23:00Notes: (Same as: Mag-Ox 400) Magnesium oxide [id number] elemental magnesium Dose=____mg magnesium oxide (___mg elemental magnesium) potassium chloride 20 mEq, 1 tab, Inactive [place] Route: PO, 2014 Medical Drug form: [facility] ERTAB, ONCE, Dosing Weight 94.318, kg, Start date: 05/18/15 8:22:00, Stop date: 05/18/15 8:22:00Notes: (Same as: K-Dur 20) "Do Not Crush" With food and full glass of water Protonix 40 mg, 1 tab, No Longer [place] Route: PO, Active 2014 Medical Drug form: [facility] ECTAB, Before Breakfast, Dosing Weight 94.318, kg, Start date: 05/18/15 7:30:00, Duration: 30 day, Stop date: 06/16/15 7:30:00Notes: Tablet should not be chewed or crushed. (Same as: Protonix) Crestor 10 mg, 1 tab, No Longer [place] Route: PO, Active 2014 Medical Drug form: [facility] TAB, Bedtime, Dosing Weight 94.318, kg, Start date: 05/17/15 21:00:00, Duration: 30 day, Stop date: 06/15/15 21:00:00Notes: (Same As: Crestor) Non-formulary dofetilide 500 microgram, No Longer [place] 2 cap, Route: Active 2014 Medical PO, Drug form: [facility] CAP, [id number], Start date: 05/17/15 18:00:00, Stop date: 06/16/15 6:00:00Notes: (Same as: Tikosyn) Providers should enter the orders via the "Dofetilide Initiation Orders MPP" to ensure compliance with the REMS program. Xarelto 20 mg, 1 tab, No Longer [place] Route: PO, Active 2014 Medical Drug form: [facility] TAB, QPM, Dosing Weight 94.318, kg, Start date: 05/17/15 17:00:00, Duration: 30 day, Stop date: 06/15/15 17:00:00Notes: (Same as: Xarelto) Administer with food potassium chloride 40 mEq, 2 tab, Inactive [place] Route: PO, 2014 Medical Drug form: [facility] ERTAB, ONCE, Dosing Weight 94.318, kg, Start date: 05/17/15 15:14:00, Stop date: 05/17/15 15:14:00Notes: (Same as: K-Dur 20) "Do Not Crush" With food and full glass of water potassium chloride 10 mEq=1 cap, Active 03/02[facility] 10 mEq oral capsule, PO, Daily, # 2015 Medical extended release 30 cap, 0 Center Refill(s) propafenone 150 mg 150 mg=1 tab, Active 03/02[facility] oral tablet PO, Q8H, # 90 2014 Medical tab, 1 Center Refill(s) Vitamin D3 2000 intl PO, Daily, 0 Active 03/02[facility] units oral tablet Refill(s) 2014 [facility] 24 HR Metoprolol 75 mg=3 tab, Active 03/02[facility] Tartrate 25 MG PO, Daily, # 2015 Medical Extended Release 90 tab, 0 Center Tablet [Toprol] Refill(s) magnesium oxide 400 400 mg=1 tab, Active 03/02[facility] mg oral tablet PO, Daily, X 2014 Medical 30 day, # 30 Center tab, 0 Refill(s) Furosemide 40 MG 40 mg=1 tab, Active 03/02[facility] Oral Tablet PO, Daily, # 2015 Medical 30 tab, 0 Center Refill(s) valsartan 320 MG 320 mg=1 tab, Active 03/02[facility] Oral Tablet [Diovan] PO, Daily, # 2015 Medical 30 tab, 0 Center Refill(s) Rosuvastatin calcium 10 mg=1 tab, Active [facility] 10 MG Oral Tablet PO, Bedtime, # 2015 Medical [Crestor] 30 tab, 0 Center Refill(s) rivaroxaban 20 MG 20 mg=1 tab, Active [facility] Oral Tablet PO, QPM, # 30 2015 Medical [Xarelto] tab, 1 Center Refill(s) Vitamin D3 1000 intl 4,000 Inactive [facility] units oral tablet IntlUnit, 4 2014 Medical tab, Route: [facility] PO, Drug form: TAB, Daily, Dosing Weight 98.636, kg, Start date: 03/02/15 9:00:00, Stop date: 03/31/15 9:00:00Notes: Same as : Vitamin D3 potassium chloride 20 mEq, 1 tab, Inactive [place] Route: PO, 2014 Medical Drug form: [facility] ERTAB, ONCE, Dosing Weight 98.636, kg, Start date: 03/01/15 9:01:00, Stop date: 03/01/15 9:01:00Notes: (Same as: K-Dur 20) "Do Not Crush" With food and full glass of water Lasix 40 mg, 1 tab, No Longer [facility] Route: PO, Active 2014 Medical Drug form: [facility] TAB, Daily, Dosing Weight 100, kg, Start date: 03/01/15 9:00:00, Duration: 30 day, Stop date: 03/30/15 9:00:00Notes: (Same as: Lasix) May cause GI upset. Give with food or milk. Mag-Ox 400 400 mg, 1 tab, No Longer [place] Route: PO, Active 2014 Medical Drug form: [facility] TAB, Daily, Dosing Weight 98.636, kg, Start date: 02/28/15 9:00:00, Duration: 30 day, Stop date: 03/29/15 9:00:00Notes: (Same as: Mag-Ox 400) Magnesium oxide [id number] elemental magnesium Dose=____mg magnesium oxide (___mg elemental magnesium) potassium chloride 20 mEq, 1 tab, Inactive [facility] Route: PO, 2014 Medical Drug form: [facility] ERTAB, ONCE, Dosing Weight 98.636, kg, Start date: 02/28/15 7:07:00, Stop date: 02/28/15 7:07:00Notes: (Same as: K-Dur 20) "Do Not Crush" With food and full glass of water Magnesium Sulfate 2 gm, 50 mL, Inactive [place] Route: IVPB, 2014 Medical Drug form: [facility] INJ, ONCE, Dosing Weight 98.636, kg, Total dose=2 gm, Start date: 02/27/15 10:18:00, Duration: 1 doses or times, Stop date: 02/27/15 10:18:00 potassium chloride 40 mEq, 2 tab, Inactive [place] Route: PO, 2014 Medical Drug form: [facility] ERTAB, ONCE, Dosing Weight 98.636, kg, Start date: 02/27/15 10:18:00, Stop date: 02/27/15 10:18:00Notes: (Same as: Jeanne-Pina 20) "Do Not Crush" With food and full glass of water Aspirin 325 mg, 1 tab, No Longer [facility] Route: PO, Active 2014 Medical Drug form: [facility] TAB, Daily, Dosing Weight 100, kg, Start date: 02/27/15 9:00:00, Duration: 30 day, Stop date: 03/28/15 9:00:00Notes: Take with food. Glucosamine 500 mg, Route: No Longer [facility] PO, Drug form: Active 2014 Medical CAP, Daily, Center Dosing Weight 100, kg, Start date: 02/27/15 9:00:00, Duration: 30 day, Stop date: 03/28/15 9:00:00 Folic Acid 1 mg, 1 tab, No Longer [facility] Route: PO, Active 2014 Medical Drug form: [facility] TAB, Daily, Dosing Weight 100, kg, Start date: 02/27/15 9:00:00, Duration: 30 day, Stop date: 03/28/15 9:00:00Notes: (Same as: Folvite) 24 HR Metoprolol 75 mg, 1.5 No Longer [place] Tartrate 50 MG tab, Route: Active 2014 Medical Extended Release PO, Drug form: [facility] Tablet [Toprol] ERTAB, Daily, Start date: 02/27/15 9:00:00, Duration: 30 day, Stop date: 03/28/15 9:00:00Notes: (Same as: Toprol XL) May split tab, but do not crush. Diovan 320 mg, 2 tab, No Longer [facility] Route: PO, Active 2014 Medical Drug form: Center TAB, Daily, Dosing Weight 100, kg, Start date: 02/27/15 9:00:00, Duration: 30 day, Stop date: 03/28/15 9:00:00Notes: Same as Diovan Vitamin D3 2000 intl 2,000 No Longer [facility] units oral tablet IntlUnit, Active 2014 Medical Route: PO, [facility] Daily, Dosing Weight 100, kg, Start date: 02/27/15 9:00:00, Duration: 30 day, Stop date: 03/28/15 9:00:00 Vitamin D3 4,000 No Longer [facility] IntlUnit, 2 Active 2014 Medical cap, Route: Center PO, Drug form: CAP, Daily, Dosing Weight 100, kg, Start date: 02/27/15 9:00:00, Duration: 30 day, Stop date: 03/28/15 9:00:00Notes: Same as: Vitamin D3 Vitamin C 500 mg, 1 tab, No Longer [facility] Route: PO, Active 2014 Medical Drug form: Center TAB, Daily, Dosing Weight 100, kg, Start date: 02/27/15 9:00:00, Duration: 30 day, Stop date: 03/28/15 9:00:00Notes: (Same as: Vitamin C) multivitamin 1 tab, Route: No Longer [facility] PO, Drug Form: Active 2014 Medical TAB, Dosing Center Weight 100, kg, Daily, Start date: 02/27/15 9:00:00, Duration: 30 day, Stop date: 03/28/15 9:00:00Notes: (Same as:Thera) Take with food. Protonix 40 mg, 1 tab, No Longer [facility] Route: PO, Active 2014 Medical Drug form: [facility] ECTAB, Before Breakfast, Dosing Weight 100, kg, Start date: 02/27/15 7:30:00, Duration: 30 day, Stop date: 03/28/15 7:30:00Notes: Tablet should not be chewed or crushed. (Same as: Protonix) diltiazem 12 hour 60 mg, Route: Inactive [place] extended release PO, Q12H, 2014 Medical Dosing Weight Center 100, kg, Start date: 02/26/15 21:00:00, Duration: 30 day, Stop date: 03/28/15 9:00:00 Crestor 10 mg, 1 tab, No Longer [place] Route: PO, Active 2014 Medical Drug form: Center TAB, Bedtime, Dosing Weight 100, kg, Start date: 02/26/15 21:00:00, Duration: 30 day, Stop date: 03/27/15 21:00:00Notes: (Same As: Crestor) Aspirin 325 MG Oral 325 mg=1 tab, Active [place] Tablet PO, Daily, # 2015 Medical 90 tab, 0 Center Refill(s) glucosamine 1,500 mg=1 Active [place] hydrochloride 1500 tab, PO, 2014 Medical mg oral tablet Daily, # 30 Center tab, 0 Refill(s) valsartan 320 MG 320 mg=1 tab, No Longer [place] Oral Tablet [Diovan] PO, Daily, # Active 2014 Medical 30 tab, 0 Center Refill(s) propafenone 225 mg 225 mg=1 cap, No Longer [place] oral capsule, PO, Q12H, # 60 Active 2014 Medical extended release cap, 0 Center Refill(s) rivaroxaban 20 MG 20 mg=1 tab, No Longer [place] Oral Tablet PO, QPM, # 30 Active 2014 Medical [Xarelto] tab, 3 Center Refill(s) vitamin E 400 intl 400 IntlUnit=1 Active [place] units oral capsule cap, PO, 2014 Medical weekly, # 30 Center cap, 0 Refill(s)Speci al Instructions: weekly Folic Acid 1 MG Oral 1 mg=1 tab, Active [place] Tablet PO, Daily, # 2015 Medical 90 tab, 0 Center Refill(s) Vitamin D3 1000 intl 1,000 No Longer [place] units oral capsule IntlUnit=1 Active 2014 Medical cap, PO, Center Daily, # 75 cap, 0 Refill(s) Rosuvastatin calcium 10 mg=1 tab, No Longer [place] 10 MG Oral Tablet PO, Bedtime, # Active 2015 Medical [Crestor] 90 tab, 0 Center Refill(s) 24 HR Metoprolol 75 mg=3 tab, No Longer [place] Tartrate 25 MG PO, Daily, # Active 2015 Medical Extended Release 90 tab, 1 Center Tablet [Toprol] Refill(s) Vitamin C 500 mg 500 mg=1 tab, Active [place] oral tablet PO, Daily, # 2015 Medical 30 tab, 0 Center Refill(s) Centrum 1 tablet, PO, Active [place] Daily, 0 2014 Medical Refill(s) Center Xarelto 20 mg, 1 tab, No Longer [place] Route: PO, Active 2014 Medical Drug form: [facility] TAB, QPM, Dosing Weight 100, kg, Start date: 02/26/15 17:00:00, Duration: 30 day, Stop date: 03/27/15 17:00:00Notes: (Same as: Xarelto) Administer with food Lasix 20 mg, 1 tab, No Longer [place] Route: PO, Active 2014 Medical Drug form: [facility] TAB, BID, Dosing Weight 100, kg, Start date: 02/26/15 17:00:00, Stop date: 03/28/15 9:00:00Notes: (Same as: Lasix) May cause GI upset. Give with food or milk. Propafenone 150 mg, 1 tab, No Longer [place] Route: PO, Active 2014 Medical Drug form: [facility] TAB, Q8H, Dosing Weight 100, kg, Start date: 02/26/15 16:00:00, Duration: 30 day, Stop date: 03/28/15 8:00:00Notes: (Same as: Rythmol) Cefuroxime 500 MG 500 mg, 1 tab, No Longer [place] Oral Tablet Route: PO, Active 2014 Medical Drug form: [facility] TAB, [id number], Dosing Weight 100, kg, Start date: 02/26/15 15:00:00, Stop date: 03/01/15 21:00:00Notes: With food. (Same As: Ceftin) Vitamin E 400 IntlUnit, No Longer [facility] 1 cap, Route: Active 2014 Medical PO, Drug form: [facility] CAP, qWeek, Dosing Weight 100, kg, Start date: 02/26/15 15:00:00, Duration: 30 day, Stop date: 03/26/15 9:00:00 Albuterol 0.83 MG/ML 2.49 mg, 3 mL, No Longer [facility] Inhalant Solution Route: NEB, Active 2014 Medical Drug form: [facility] SOLN, RQ8H, Dosing Weight 100, kg, PRN Respiratory Protocol, Start date: 02/26/15 14:55:00, Duration: 30 day, Stop date: 03/28/15 14:54:00Notes: SEE RT DOCUMENTATION (Same as: Proventil) Lasix 40 mg, Route: Inactive 02/26[facility] IV, ONCE, 2014 Medical Dosing Weight Center 100, kg, Start date: 02/26/15 14:41:00, Stop date: 02/26/15 14:41:00 diltiazem 12 hour 60 mg, 1 cap, Inactive 02/26[facility] extended release Route: PO, 2014 Medical Drug form: [facility] ERCAP, ONCE, Dosing Weight 100, kg, Start date: 02/26/15 13:50:00, Stop date: 02/26/15 13:50:00Notes: (Same as: Cardizem SR) Diltiazem 25 mg, 5 mL, Inactive 02/26[facility] Route: IVP, 2014 Medical Drug form: [facility] INJ, ONCE, Dosing Weight 100, kg, Priority: STAT, Start date: 02/26/15 13:16:00, Stop date: 02/26/15 13:16:00Notes: (Same as: Cardizem) Albuterol 0.833 3 mL, Route: Inactive 02/26[facility] MG/ML / Ipratropium INHALATION, 2014 Medical [place] 0.167 MG/ML Dosing Weight [facility] Inhalant Solution 100, kg, ONCE, [[id number]] Start date: 02/26/15 11:15:00, Stop date: 02/26/15 11:15:00 Allergies, Adverse Reactions, Alerts Substance Category Reaction Severity Reaction Status Date Comments Source type Reported Demerol Assertion Drug Active [facility] Immunizations No Data Provided for This Section Results Order Name Results Value Reference Date Interpretation Comments Source Range CHEM PANEL eGFR 67 12/16 Result Comment: The Medical eGFR is Center calculated using the CKD-EPI formula. In most young, healthy individuals the eGFR will be >90 mL/min/1.73m2 . The eGFR declines with age. An eGFR of 60-89 may be normal in some populations, particularly the elderly, for whom the CKD-EPI formula has not been extensively validated. Use of the eGFR is not recommended in the following populations:< br/>
Sasha viduals with unstable creatinine concentration s, including patients and those with serious co-morbid conditions.<b r/>
Patie nts with extremes in muscle mass or diet.

The data above are obtained from the National Kid[employer] Education Program (NKDEP) which additionally recommends that when the eGFR is used in patients with extremes of body mass index for purposes of drug dosing, the eGFR should be multiplied by the estimated BMI. CHEM PANEL AGAP 11.9 10.0 - 12/16 [facility] 20.0 [facility] CHEM PANEL Calcium Lvl 9.0 8.5 - 10.5 12/[address] CHEM PANEL Chloride Lvl 104 95 - 109 12/[address] CHEM PANEL CO2 28 24 - 32 12/[address] CHEM PANEL Potassium Lvl 3.9 3.5 - 5.1 12/[address] CHEM PANEL Creatinine 1.16 0.50 - 12/16 [facility] Lvl 1.40 [facility] CHEM PANEL Sodium Lvl 140 135 - 145 12/[address] CHEM PANEL Glucose Lvl 105 70 - 99 12/[address] CHEM PANEL BUN 23 7 - 22 12/[address] CHEM PANEL Magnesium Lvl 2.3 1.8 - 2.4 12/[address] CHEM PANEL Phosphorus 4.7 2.5 - 4.5 12/[address] HEMATOLOGY RDW 14.8 11.5 - 12/16 [facility] 14.5 [facility] HEMATOLOGY MCHC 33.5 32.0 - 12/16 [facility] 36.0 [facility] HEMATOLOGY MCH 33.2 27.0 - 12/16 31.0 [facility] HEMATOLOGY MCV 98.9 80.0 - 12/16 [facility] 94.0 [facility] HEMATOLOGY Hct 43.7 42.0 - 12/16 54.0 [facility] HEMATOLOGY MPV 9.8 7.4 - 10.4 12/[address] HEMATOLOGY Platelet 149 133 - 450 12/16 2018 [facility] HEMATOLOGY Hgb 14.7 14.0 - 12/16 [place] 18.0 [facility] HEMATOLOGY RBC 4.42 4.70 - 12/16 [place] 6.10 [facility] HEMATOLOGY WBC 4.1 3.7 - 10.4 12/[address] HEMATOLOGY Eosinophils # 0.2 0.0 - 0.5 12/16 2018 [facility] HEMATOLOGY Lymphocytes # 0.9 1.0 - 5.5 12/[address] HEMATOLOGY Monocytes # 0.7 0.0 - 0.8 12/16 2018 [facility] HEMATOLOGY Neutrophils # 2.3 1.5 - 8.1 12/16 2018 [facility] HEMATOLOGY Basophils 1.1 0.0 - 1.0 12/[address] HEMATOLOGY Eosinophils 4.7 0.0 - 4.0 12/16 2018 [facility] HEMATOLOGY Monocytes 17.8 2.0 - 12.0 12/[address] HEMATOLOGY Lymphocytes 21.0 20.0 - 12/16 [facility] 40.0 [facility] HEMATOLOGY Segs 55.4 45.0 - 12/16 75.0 [facility] CHEM PANEL eGFR 58 12/15 Result Comment: The Medical eGFR is Center calculated using the CKD-EPI formula. In most young, healthy individuals the eGFR will be >90 mL/min/1.73m2 . The eGFR declines with age. An eGFR of 60-89 may be normal in some populations, particularly the elderly, for whom the CKD-EPI formula has not been extensively validated. Use of the eGFR is not recommended in the following populations:< br/>
Sasha viduals with unstable creatinine concentration s, including patients and those with serious co-morbid conditions.<b r/>
Patie nts with extremes in muscle mass or diet.

The data above are obtained from the National Kidney Disease Education Program (NKDEP) which additionally recommends that when the eGFR is used in patients with extremes of body mass index for purposes of drug dosing, the eGFR should be multiplied by the estimated BMI. CHEM PANEL CO2 29 24 - 32 12/[address] CHEM PANEL AGAP 9.8 10.0 - 12/15 [facility] 20.0 [facility] CHEM PANEL Calcium Lvl 9.8 8.5 - 10.5 12/[address] CHEM PANEL Sodium Lvl 139 135 - 145 12/[address] CHEM PANEL Potassium Lvl 3.8 3.5 - 5.1 12/[address] CHEM PANEL Chloride Lvl 104 95 - 109 12/[address] CHEM PANEL Creatinine 1.31 0.50 - 12/15 [facility] Lvl 1.40 [facility] CHEM PANEL BUN 24 7 - 22 12/[address] CHEM PANEL Glucose Lvl 159 70 - 99 12/[address] CHEM PANEL Phosphorus 4.7 2.5 - 4.5 12/[address] CHEM PANEL Magnesium Lvl 2.4 1.8 - 2.4 12/[address] ELECTROLYTE AGAP 9.0 10.0 - 12/15 [facility] S . [facility] ELECTROLYTE eGFR 60 12/15 Result [facility] Comment: The Medical eGFR is Center calculated using the CKD-EPI formula. In most young, healthy individuals the eGFR will be >90 mL/min/1.73m2 . The eGFR declines with age. An eGFR of 60-89 may be normal in some populations, particularly the elderly, for whom the CKD-EPI formula has not been extensively validated. Use of the eGFR is not recommended in the following populations:< br/>
Sasha viduals with unstable creatinine concentration s, including patients and those with serious co-morbid conditions.<b r/>
Patie nts with extremes in muscle mass or diet.

The data above are obtained from the National Kidney Disease Education Program (NKDEP) which additionally recommends that when the eGFR is used in patients with extremes of body mass index for purposes of drug dosing, the eGFR should be multiplied by the estimated BMI. ELECTROLYTE Calcium Lvl 8.9 8.5 - 10.5 12/[address] ELECTROLYTE Glucose Lvl 104 70 - 99 12/[address] ELECTROLYTE Creatinine 1.26 0.50 - 12/15 [facility] S Lvl 1.40 /2018 [facility] ELECTROLYTE Sodium Lvl 140 135 - 145 12/[address] ELECTROLYTE CO2 27 24 - 32 / [address] ELECTROLYTE Potassium Lvl 4.0 3.5 - 5.1 12/[address] ELECTROLYTE Chloride Lvl 108 95 - 109 12/[address] ELECTROLYTE BUN 27 7 - 22 12/[address] HEMATOLOGY PTT 40.8 22.9 - 12/15 [place] 35.8 [facility] HEMATOLOGY INR 2.02 0.85 - 12/15 [place] 1.17 [facility] HEMATOLOGY PT 22.4 12.0 - 12/15 [facility] 14.7 [facility] HEMATOLOGY RDW 14.7 11.5 - 12/15 [facility] 14.5 [facility] HEMATOLOGY MCH 33.8 27.0 - 0609 [place] 31.0 /2019 [facility] HEMATOLOGY MCHC 33.6 32.0 - 12/15 [facility] 36.0 [facility] HEMATOLOGY Hct 43.9 42.0 - 12/15 [place] 54.0 [facility] HEMATOLOGY RBC 4.37 4.70 - 12/15 [place] 6.10 /2018 [facility] HEMATOLOGY Hgb 14.8 14.0 - 12/15 [place] 18.0 [facility] HEMATOLOGY WBC 4.7 3.7 - 10.4 12/[address] HEMATOLOGY MCV 100.5 80.0 - 12/15 [place] 94.0 [facility] HEMATOLOGY MPV 9.6 7.4 - 10.4 12/[address] HEMATOLOGY Platelet 149 133 - 450 12/[address] HEMATOLOGY Basophils 1.1 0.0 - 1.0 / [address] HEMATOLOGY Monocytes 16.4 2.0 - 12.0 12/[address] HEMATOLOGY Eosinophils 4.4 0.0 - 4.0 12/[address] HEMATOLOGY Segs 58.2 45.0 - 12/15 [facility] 75.0 2019 [facility] HEMATOLOGY Lymphocytes 19.9 20.0 - 12/15 [facility] 40.0 2019 [facility] HEMATOLOGY Macrocyte 1+ None Seen 12/15 [facility] *ABN* /2018 [facility] (12/15/18 1:02 AM) [facility] HEMATOLOGY Monocytes # 0.8 0.0 - 0.8 12/[address] HEMATOLOGY Basophils # 0.1 0.0 - 0.2 12/[address] HEMATOLOGY Eosinophils # 0.2 0.0 - 0.5 12/[address] HEMATOLOGY Lymphocytes # 0.9 1.0 - 5.5 12/[address] HEMATOLOGY Neutrophils # 2.8 1.5 - 8.1 12/[address] PARATHYROID Ca Norm WB 1.00 1.05 - 12/15 [facility] PROFILE 08.02 [facility] PARATHYROID Ca Ion WB 0.98 1.05 - 12/15 [facility] PROFILE 08.02 [facility] CHEM PANEL Phosphorus 4.6 2.5 - 4.5 12/[address] CHEM PANEL Magnesium Lvl 2.4 1.8 - 2.4 12/[address] HEMATOLOGY Eosinophils 5.3 0.0 - 4.0 12/[address] HEMATOLOGY Basophils 0.9 0.0 - 1.0 12/[address] HEMATOLOGY Lymphocytes 16.0 20.0 - 08 [facility] 40.0 2019 [facility] HEMATOLOGY Neutrophils # 2.7 1.5 - 8.1 12/[address] HEMATOLOGY Segs 60.1 45.0 - 06/08 [facility] 75.0 2019 [facility] HEMATOLOGY Monocytes # 0.8 0.0 - 0.8 06/ [address] HEMATOLOGY Eosinophils # 0.2 0.0 - 0.5 12/[address] HEMATOLOGY Monocytes 17.7 2.0 - 12.0 / [address] HEMATOLOGY Lymphocytes # 0.7 1.0 - 5.5 / [address] HEMATOLOGY Hgb 14.5 14.0 - 06/08 [facility] 18.0 /2019 [facility] HEMATOLOGY WBC 4.4 3.7 - 10.4 12/14 [facility]2018 [facility] HEMATOLOGY Platelet 152 133 - 450 06 [facility]2018 [facility] HEMATOLOGY MPV 9.9 7.4 - 10.4 12/[address] HEMATOLOGY RBC 4.34 4.70 - 12/14 [place] 6.10 [facility] HEMATOLOGY Hct 43.0 42.0 - 12/14 [place] 54.0 [facility] HEMATOLOGY MCV 99.1 80.0 - 12/14 [facility] 94.0 [facility] HEMATOLOGY RDW 14.9 11.5 - 12/14 [facility] 14.5 [facility] HEMATOLOGY MCH 33.5 27.0 - 12/14 [facility] 31.0 [facility] HEMATOLOGY MCHC 33.8 32.0 - 12/14 [facility] 36.0 [facility] CARDIAC BNP 251 <=100 12/11 [facility] ENZYMES pg/mL /2018 [facility] CHEM PANEL A/G Ratio 0.9 0.7 - 1.6 12/[address] CHEM PANEL Globulin 3.6 2.7 - 4.2 12/[address] CHEM PANEL B/C Ratio 21 6 - 25 12/[address] CHEM PANEL Bili Total 0.4 0.2 - 1.3 12/[address] CHEM PANEL Alk Phos 58 39 - [address] CHEM PANEL Albumin Lvl 3.4 3.5 - 5.0 12/[address] CHEM PANEL ALT 31 0 - [address] CHEM PANEL Total Protein 7.0 6.4 - 8.4 12/[address] CHEM PANEL AST 32 0 - 37 06/ [facility]2018 [facility] HEMATOLOGY PTT 34.8 22.9 - 06/05 [place] 35.8 2019 [facility] HEMATOLOGY INR 1.45 0.85 - 12/11 [place] 1.17 [facility] HEMATOLOGY PT 17.3 12.0 - 06/05 [facility] 14.7 2019 [facility] CHEM PANEL Magnesium Lvl 2.3 1.8 - 2.4 06/[address] ELECTROLYTE AGAP 15.0 10.0 - 12 [facility] S 20.0 [facility] ELECTROLYTE eGFR 55 06/24 Result [facility] Comment: The Medical eGFR is Center calculated using the CKD-EPI formula. In most young, healthy individuals the eGFR will be >90 mL/min/1.73m2 . The eGFR declines with age. An eGFR of 60-89 may be normal in some populations, particularly the elderly, for whom the CKD-EPI formula has not been extensively validated. Use of the eGFR is not recommended in the following populations:< br/>
Sasha viduals with unstable creatinine concentration s, including patients and those with serious co-morbid conditions.<b r/>
Patie nts with extremes in muscle mass or diet.

The data above are obtained from the National Kidney Disease Education Program (NKDEP) which additionally recommends that when the eGFR is used in patients with extremes of body mass index for purposes of drug dosing, the eGFR should be multiplied by the estimated BMI. ELECTROLYTE Glucose Lvl 115 70 - 99 06/24 [facility]2017 [facility] ELECTROLYTE BUN 47 7 - 22 06/[address] ELECTROLYTE Creatinine 1.35 0.50 - 06/24 [facility] S Lvl 1.40 /2017 [facility] ELECTROLYTE Sodium Lvl 144 135 - 145 06/[address] ELECTROLYTE Potassium Lvl 4.0 3.5 - 5.1 06/[address] ELECTROLYTE Chloride Lvl 107 95 - 109 06/[address] ELECTROLYTE CO2 26 24 - 32 06/[address] ELECTROLYTE Calcium Lvl 9.4 8.5 - 10.5 06/24 [facility]2017 [facility] HEMATOLOGY PTT 35.5 22.9 - 06/24 [place] 35.8 [facility] HEMATOLOGY INR 1.59 0.85 - 06/24 [place] 1. [facility] HEMATOLOGY PT 18.6 12.0 - 06/24 [place] 14.7 [facility] HEMATOLOGY MCH 32.9 27.0 - 06/24 [place] 31.0 [facility] HEMATOLOGY MCV 99.3 80.0 - 06/24 [place] 94.0 [facility] HEMATOLOGY MCHC 33.1 32.0 - 06/24 [place] 36.0 [facility] HEMATOLOGY RDW 13.8 11.5 - 06/24 [place] 14.5 /2017 [facility] HEMATOLOGY Platelet 223 133 - 450 06/24 2017 [facility] HEMATOLOGY MPV 9.2 7.4 - 10.4 06/24 2017 [facility] HEMATOLOGY Hct 40.4 42.0 - 06/24 [place] 54.0 /2017 [facility] HEMATOLOGY Hgb 13.4 14.0 - 06/24 [place] 18.0 [facility] HEMATOLOGY RBC 4.07 4.70 - 06/24 [place] 6.10 [facility] HEMATOLOGY WBC 5.3 3.7 - 10.4 06/[address] HEMATOLOGY Monocytes # 0.7 0.0 - 0.8 06/24 [facility]2017 [facility] HEMATOLOGY Eosinophils # 0.1 0.0 - 0.5 06/24 2017 [facility] HEMATOLOGY Neutrophils # 3.7 1.5 - 8.1 06/[address] HEMATOLOGY Basophils 0.6 0.0 - 1.0 06/24 2017 [facility] HEMATOLOGY Eosinophils 2.6 0.0 - 4.0 06/[address] HEMATOLOGY Lymphocytes 12.8 20.0 - 06/24 [place] 40.0 [facility] HEMATOLOGY Segs 70.1 45.0 - 06/24 [place] 75.0 2018 [facility] HEMATOLOGY Monocytes 13.9 2.0 - 12.0 06/[address] HEMATOLOGY Lymphocytes # 0.7 1.0 - 5.5 06/[address] CHEM PANEL Phosphorus 4.8 2.5 - 4.5 06/[address] CHEM PANEL eGFR 66 06/21 Result Comment: The Medical eGFR is Center calculated using the CKD-EPI formula. In most young, healthy individuals the eGFR will be >90 mL/min/1.73m2 . The eGFR declines with age. An eGFR of 60-89 may be normal in some populations, particularly the elderly, for whom the CKD-EPI formula has not been extensively validated. Use of the eGFR is not recommended in the following populations:< br/>
Sasha viduals with unstable creatinine concentration s, including patients and those with serious co-morbid conditions.<b r/>
Patie nts with extremes in muscle mass or diet.

The data above are obtained from the National Kidney Disease Education Program (NKDEP) which additionally recommends that when the eGFR is used in patients with extremes of body mass index for purposes of drug dosing, the eGFR should be multiplied by the estimated BMI. CHEM PANEL Calcium Lvl 8.5 8.5 - 10.5 06/[address] CHEM PANEL CO2 24 24 - [address] CHEM PANEL Glucose Lvl 117 70 - 99 06/[address] CHEM PANEL Creatinine 1.17 0.50 - 06/21 [facility] Lvl 1.40 /2017 [facility] CHEM PANEL BUN 32 7 - 22 06/[address] CHEM PANEL Sodium Lvl 140 135 - 145 06/[address] CHEM PANEL Potassium Lvl 3.8 3.5 - 5.1 06/[address] CHEM PANEL Chloride Lvl 107 95 - 109 06/[address] CHEM PANEL AGAP 12.8 10.0 - 06/21 [place] 20.0 [facility] CHEM PANEL Magnesium Lvl 2.1 1.8 - 2.4 06/[address] HEMATOLOGY RDW 14.1 11.5 - 06/21 [place] 14.5 [facility] HEMATOLOGY Platelet 182 133 - 450 06/[address] HEMATOLOGY MPV 9.7 7.4 - 10.4 06/[address] HEMATOLOGY Hct 40.3 42.0 - 06/21 [place] 54.0 [facility] HEMATOLOGY MCH 33.3 27.0 - 06/21 [place] 31.0 [facility] HEMATOLOGY MCV 97.7 80.0 - 06/21 [place] 94.0 [facility] HEMATOLOGY MCHC 34.1 32.0 - 06/21 [place] 36.0 [facility] HEMATOLOGY WBC 5.2 3.7 - 10.4 06/[address] HEMATOLOGY Hgb 13.8 14.0 - 06/21 [place] 18.0 [facility] HEMATOLOGY RBC 4.13 4.70 - 06/21 [place] 6.10 [facility] HEMATOLOGY INR 1.94 0.85 - 06/21 [place] 1.17 [facility] HEMATOLOGY PT 21.7 12.0 - 12 [place] 14.7 /2017 [facility] HEMATOLOGY PTT 40.0 22.9 - 06/21 [place] 35.8 /2017 [facility] HEMATOLOGY Lymphocytes # 0.8 1.0 - 5.5 06/21 /2017 [facility] HEMATOLOGY Monocytes # 0.8 0.0 - 0.8 12 2017 [facility] HEMATOLOGY Eosinophils # 0.2 0.0 - 0.5 06/21 /2017 [facility] HEMATOLOGY Basophils # 0.1 0.0 - 0.2 06/21 /2017 [facility] HEMATOLOGY Eosinophils 4.2 0.0 - 4.0 06/21 2017 [facility] HEMATOLOGY Basophils 1.1 0.0 - 1.0 06/21 /2017 [facility] HEMATOLOGY Neutrophils # 3.3 1.5 - 8.1 06/21 /2017 [facility] HEMATOLOGY Lymphocytes 15.2 20.0 - 06/21 [place] 40.0 [facility] HEMATOLOGY Monocytes 15.9 2.0 - 12.0 06/21 [facility] HEMATOLOGY Segs 63.6 45.0 - 06/21 [place] 75.0 [facility] CARDIAC Troponin-T <0.010 0.000 - 06/20 [facility] ENZYMES 0.100 [facility] CARDIAC Troponin-I <0.02 0.00 - 06/20 [facility] ENZYMES 0.40 [facility] CARDIAC Total CK 102 12 - 191 06/20 [facility] ENZYMES [address] CARDIAC CK MB Index 2.0 0.0 - 2.5 06/20 [facility] ENZYMES /2017 [facility] CARDIAC CK MB 2.0 0.5 - 3.6 06/20 [facility] ENZYMES /[address] [place] [address] CHEM PANEL eGFR 73 06/20 [facility] Comment: The Medical eGFR is Center calculated using the CKD-EPI formula. In most young, healthy individuals the eGFR will be >90 mL/min/1.73m2 . The eGFR declines with age. An eGFR of 60-89 may be normal in some populations, particularly the elderly, for whom the CKD-EPI formula has not been extensively validated. Use of the eGFR is not recommended in the following populations:< br/>
Sasha viduals with unstable creatinine concentration s, including patients and those with serious co-morbid conditions.<b r/>
Patie nts with extremes in muscle mass or diet.

The data above are obtained from the National Kidney Disease Education Program (NKDEP) which additionally recommends that when the eGFR is used in patients with extremes of body mass index for purposes of drug dosing, the eGFR should be multiplied by the estimated BMI. CHEM PANEL Calcium Lvl 8.4 8.5 - 10.5 06/[address] CHEM PANEL AGAP 15.8 10.0 - 06/20 [facility] 20.[address] [place] [address] CHEM PANEL CO2 22 24 - 32 06/[address] CHEM PANEL Chloride Lvl 109 95 - 109 06/[address] CHEM PANEL Glucose Lvl 108 70 - 99 06/[address] CHEM PANEL BUN 33 7 - 22 06/[address] CHEM PANEL Creatinine 1.07 0.50 - 06/20 [facility] Lvl 1.40 [facility] CHEM PANEL Sodium Lvl 143 135 - 145 06/[address] CHEM PANEL Potassium Lvl 3.8 3.5 - 5.1 06/[address] CHEM PANEL Phosphorus 4.0 2.5 - 4.5 06/[address] CHEM PANEL Magnesium Lvl 2.2 1.8 - 2.4 06/[address] CHEM PANEL Globulin 3.4 2.7 - 4.2 06/[address] CHEM PANEL A/G Ratio 0.9 0.7 - 1.6 06/[address] CHEM PANEL Bili Indirect 0.4 0.0 - 1.0 06/[address] CHEM PANEL Bili Direct 0.2 0.0 - 0.3 06/[address] CHEM PANEL Bili Total 0.6 0.2 - 1.3 06/[address] CHEM PANEL Alk Phos 61 39 - 136 06/[address] CHEM PANEL AST 24 0 - 37 06/[address] CHEM PANEL Albumin Lvl 3.2 3.5 - 5.0 06/[address] CHEM PANEL ALT 26 0 - 65 06/[address] CHEM PANEL Total Protein 6.6 6.4 - 8.4 06/20 [facility] HEMATOLOGY MPV 10.0 7.4 - 10.4 06/20 [facility] HEMATOLOGY Platelet 190 133 - 450 06/20 [facility] HEMATOLOGY RBC 3.97 4.70 - 06/20 [place] 6.10 [facility] HEMATOLOGY RDW 14.0 11.5 - 06/20 [place] 14.5 [facility] HEMATOLOGY MCHC 34.2 32.0 - 06/20 [place] 36.0 [facility] HEMATOLOGY WBC 7.1 3.7 - 10.4 06/20 [facility] HEMATOLOGY MCH 33.6 27.0 - 06/20 [place] 31.0 [facility] HEMATOLOGY MCV 98.2 80.0 - 06/20 [facility] 94.0 [facility] HEMATOLOGY Hct 39.0 42.0 - 06/20 [facility] 54.0 [facility] HEMATOLOGY Hgb 13.3 14.0 - 06/20 [place] 18.0 [facility] HEMATOLOGY Basophils # 0.1 0.0 - 0.2 06/20 [facility] HEMATOLOGY Eosinophils # 0.2 0.0 - 0.5 06/20 [facility] [address] [place] [address] HEMATOLOGY Monocytes # 1.1 0.0 - 0.8 06/[address] [place] [address] HEMATOLOGY Lymphocytes 10.5 20.0 - 06/20 [place] 40.0 [facility] HEMATOLOGY Segs 69.4 45.0 - 06/20 [place] 75.0 [facility] HEMATOLOGY Eosinophils 3.4 0.0 - 4.0 06/[address] [place] [address] HEMATOLOGY Lymphocytes # 0.7 1.0 - 5.5 06/[address] [place] [address] HEMATOLOGY Basophils 0.8 0.0 - 1.0 06/[address] [place] [address] HEMATOLOGY Monocytes 15.9 2.0 - 12.0 06/[address] HEMATOLOGY Neutrophils # 4.9 1.5 - 8.1 06/[address] LIPIDS CHD Risk 3.15 4.00 - 06/20 [place] 7.30 [facility] LIPIDS VLDL 48 12 [facility] [address] [place] [address] LIPIDS HDL 34 >=61 mg/dL 06/20 [facility] [address] [place] [address] LIPIDS LDL 25 <=99 mg/dL 1213 [place] (Calculated) [facility] LIPIDS Chol 107 <=199 06/20 [facility] mg/dL [facility] LIPIDS Trig 240 <=149 06/20 [facility] mg/dL [facility] SPECIAL Hgb A1C 5.8 <=5.6 % 06/20 [facility] CHEMISTRY /2017 [facility] CARDIAC CK MB Index 1.5 0.0 - 2.5 06/20 [facility] ENZYMES /2017 [facility] CARDIAC CK MB 1.7 0.5 - 3.6 06/20 [facility] ENZYMES /2017 [facility] CARDIAC Troponin-T <0.010 0.000 - 06/20 [facility] ENZYMES 0.100 /2017 [facility] CARDIAC Troponin-I <0.02 0.00 - 06/20 [facility] ENZYMES 0.40 /2017 [facility] CARDIAC Total CK 117 12 - 191 06/20 [facility] ENZYMES /[address] [place] [address] URINE AND UA Mucus Few /LPF None Seen 06/20 [place] STOOL /LPF /2017 [facility] URINE AND UA <=1.0 0.1 - 1.0 06/20 [facility] STOOL Urobilinogen mg/dL /2017 [facility] URINE AND UA Sq Epi None Seen 06/20 [facility] STOOL /[address] [place] [address] URINE AND UA Ketones Negative Negative 06/20 [facility] STOOL mg/dL mg/dL [facility] URINE AND UA Glucose Negative Negative 06/20 [facility] STOOL mg/dL mg/dL /2017 [facility] URINE AND UA Protein 20 mg/dL Negative 06/20 [facility] STOOL mg/dL /[address] [place] [address] URINE AND UA WBC 1 0 - 5 06/20 [facility] STOOL /2017 [facility] URINE AND UA Leuk Est Negative Negative 06/20 [facility] STOOL (06/19/18 9:43 PM) /2017 [facility] URINE AND UA Nitrite Negative Negative 06/20 [facility] STOOL (06/19/18 9:43 PM) /[address] [place] [address] URINE AND UA Blood Negative Negative 06/20 [facility] STOOL (06/19/18 9:43 PM) /2017 [facility] URINE AND UA Bili Negative Negative 06/20 [facility] STOOL *NA* /2017 [facility] (06/19/18 9:43 PM) Center URINE AND UA Bacteria Occasional None Seen 06/20 [facility] STOOL /HPF /HPF /2017 [facility] URINE AND UA Spec Grav 1.019 <=1.030 06/20 [facility] /[address] [place] [address] URINE AND UA Turbidity Clear Clear 06/20 [facility] STOOL (06/19/18 9:43 PM) /[address] [place] [address] URINE AND UA Color Yellow Yellow 06/20 [facility] STOOL *NA* /[address] [place] [address] (06/19/18 9:43 PM) [facility] URINE AND UA pH 5.5 5.0 - 8.0 06/20 [facility] /[address] [place] [address] CARDIAC BNP 280 <=100 06/19 [facility] ENZYMES pg/mL /[address] [place] [address] CARDIAC Troponin-T <0.010 0.000 - 06/19 [facility] ENZYMES 0.100 /[address] [place] [address] CARDIAC Troponin-I <0.02 0.00 - 06/19 [facility] ENZYMES 0.40 /2017 [facility] CARDIAC Total CK 126 12 - 191 06/[address] CARDIAC CK MB Index 1.2 0.0 - 2.5 06/[address] CARDIAC CK MB 1.5 0.5 - 3.6 06/[address] CHEM PANEL Total Protein 8.0 6.4 - 8.4 06/[address] CHEM PANEL Albumin Lvl 3.8 3.5 - 5.0 06/[address] CHEM PANEL ALT 37 0 - 65 06/[address] CHEM PANEL Bili Indirect 0.6 0.0 - 1.0 06/[address] CHEM PANEL Alk Phos 79 39 - 136 06/[address] CHEM PANEL Bili Total 0.8 0.2 - 1.3 06/[address] CHEM PANEL Bili Direct 0.2 0.0 - 0.3 06/[address] CHEM PANEL Globulin 4.2 2.7 - 4.2 06/[address] CHEM PANEL A/G Ratio 0.9 0.7 - 1.6 06/[address] CHEM PANEL AST 26 0 - 37 06/[address] CHEM PANEL Magnesium Lvl 2.1 1.8 - 2.4 06/[address] CHEM PANEL eGFR 51 06/19 [place] [id number] Comment: The Medical eGFR is Center calculated using the CKD-EPI formula. In most young, healthy individuals the eGFR will be >90 mL/min/1.73m2 . The eGFR declines with age. An eGFR of 60-89 may be normal in some populations, particularly the elderly, for whom the CKD-EPI formula has not been extensively validated. Use of the eGFR is not recommended in the following populations:< br/>
Sasha viduals with unstable creatinine concentration s, including patients and those with serious co-morbid conditions.<b r/>
Patie nts with extremes in muscle mass or diet.

The data above are obtained from the National Kidney Disease Education Program (NKDEP) which additionally recommends that when the eGFR is used in patients with extremes of body mass index for purposes of drug dosing, the eGFR should be multiplied by the estimated BMI. CHEM PANEL Potassium Lvl 4.1 3.5 - 5.1 06/[address] CHEM PANEL Chloride Lvl 106 95 - 109 06/[address] CHEM PANEL CO2 23 24 - 32 06/[address] CHEM PANEL Creatinine 1.44 0.50 - 06/19 [facility] Lvl 1.40 [facility] CHEM PANEL Sodium Lvl 142 135 - 145 06/[address] CHEM PANEL BUN 34 7 - 22 06/[address] CHEM PANEL Glucose Lvl 103 70 - 99 06/[address] CHEM PANEL Calcium Lvl 9.2 8.5 - 10.5 06/[address] CHEM PANEL AGAP 17.1 10.0 - 06/19 [facility] 20.0 [facility] CHEM PANEL Phosphorus 4.4 2.5 - 4.5 06/[address] HEMATOLOGY PTT 32.9 22.9 - 12 [facility] 35.8 [facility] HEMATOLOGY Lymphocytes # 0.9 1.0 - 5.5 06/[address] HEMATOLOGY Neutrophils # 4.7 1.5 - 8.1 06/[address] HEMATOLOGY Basophils # 0.1 0.0 - 0.2 06/[address] HEMATOLOGY Eosinophils # 0.2 0.0 - 0.5 06/[address] HEMATOLOGY RBC Morph Normal 06/19 [facility] (06/19/18 3:37 PM) /[address] [place] [address] HEMATOLOGY Lymphocytes 13.7 20.0 - 06/19 [place] 40.0 /2017 [facility] HEMATOLOGY Basophils 1.0 0.0 - 1.0 06/19 [facility] HEMATOLOGY Monocytes # 1.0 0.0 - 0.8 06/19 [facility] HEMATOLOGY Segs 68.3 45.0 - 06/19 [place] 75.0 /2017 [facility] HEMATOLOGY Plt Morph Normal 06/19 [facility] (06/19/18 3:37 PM) [facility] HEMATOLOGY Eosinophils 2.9 0.0 - 4.0 12 [facility] HEMATOLOGY Monocytes 14.1 2.0 - 12.0 12 [facility] HEMATOLOGY MPV 9.4 7.4 - 10.4 06/19 [facility] HEMATOLOGY MCHC 32.9 32.0 - 06/19 [place] 36.0 [facility] HEMATOLOGY MCH 32.7 27.0 - 06/19 [place] 31.0 [facility] HEMATOLOGY Platelet 203 133 - 450 12 [facility] HEMATOLOGY RDW 14.4 11.5 - 12 [place] 14.5 [facility] HEMATOLOGY MCV 99.4 80.0 - 06/19 [place] 94.0 [facility] HEMATOLOGY Hgb 14.8 14.0 - 06/19 [place] 18.0 [facility] HEMATOLOGY RBC 4.51 4.70 - 06/19 [place] 6.10 [facility] HEMATOLOGY Hct 44.8 42.0 - 06/19 [place] 54.0 /2017 [facility] HEMATOLOGY WBC 6.8 3.7 - 10.4 06/19 [facility] HEMATOLOGY PT 15.4 12.0 - 12 [place] 14.7 [facility] HEMATOLOGY INR 1.24 0.85 - 06/19 [place] 1.17 [facility] CHEM PANEL eGFR 63 06/17 Result Comment: The Medical eGFR is Center calculated using the CKD-EPI formula. In most young, healthy individuals the eGFR will be >90 mL/min/1.73m2 . The eGFR declines with age. An eGFR of 60-89 may be normal in some populations, particularly the elderly, for whom the CKD-EPI formula has not been extensively validated. Use of the eGFR is not recommended in the following populations:< br/>
Sasha viduals with unstable creatinine concentration s, including patients and those with serious co-morbid conditions.<b r/>
Patie nts with extremes in muscle mass or diet.

The data above are obtained from the National Kidney Disease Education Program (NKDEP) which additionally recommends that when the eGFR is used in patients with extremes of body mass index for purposes of drug dosing, the eGFR should be multiplied by the estimated BMI. CHEM PANEL Potassium Lvl 4.4 3.5 - 5.[address] CHEM PANEL Calcium Lvl 9.2 8.5 - 10.[address] CHEM PANEL CO2 24 24 - [address] CHEM PANEL Chloride Lvl 107 95 - 109 06/[address] CHEM PANEL BUN 38 7 - 22 06/[address] CHEM PANEL Creatinine 1.21 0.50 - 06/17 [facility] Lvl 1.40 [facility] CHEM PANEL Sodium Lvl 143 135 - 145 06/[address] CHEM PANEL Glucose Lvl 108 70 - [address] CHEM PANEL AGAP 16.4 10.0 - 1210 [facility] 20.0 [facility] HEMATOLOGY Monocytes # 0.8 0.0 - 0.8 06/[address] HEMATOLOGY Eosinophils # 0.3 0.0 - 0.5 06/[address] HEMATOLOGY Lymphocytes 10.5 20.0 - 1210 [place] 40.0 [facility] HEMATOLOGY Segs 71.6 45.0 - 1210 [place] 75.0 [facility] HEMATOLOGY Monocytes 12.6 2.0 - 12.[address] HEMATOLOGY Eosinophils 4.5 0.0 - 4.[address] HEMATOLOGY Lymphocytes # 0.6 1.0 - 5.[address] HEMATOLOGY Neutrophils # 4.4 1.5 - 8.[address] HEMATOLOGY Basophils 0.8 0.0 - 1.[address] HEMATOLOGY PTT 35.2 22.9 - 1210 [place] [address] HEMATOLOGY INR 1.53 0.85 - 06/17 [place] 1.17 [facility] HEMATOLOGY PT 18.1 12.0 - 12 [place] 14.7 [facility] HEMATOLOGY MPV 9.6 7.4 - 10.4 06/17 [facility] HEMATOLOGY Platelet 187 133 - 450 06/17 [facility] HEMATOLOGY Hct 42.8 42.0 - 06/17 [place] 54.0 [facility] HEMATOLOGY MCV 99.0 80.0 - 06/17 [place] 94.0 [facility] HEMATOLOGY MCH 33.0 27.0 - 12/ [place] 31.0 /2017 [facility] HEMATOLOGY RDW 14.0 11.5 - 12 [place] 14.5 [facility] HEMATOLOGY WBC 6.1 3.7 - 10.4 06/17 [facility] HEMATOLOGY MCHC 33.3 32.0 - 06/17 [place] 36.0 [facility] HEMATOLOGY Hgb 14.2 14.0 - 06/17 [place] 18.0 [facility] HEMATOLOGY RBC 4.32 4.70 - 06/17 [place] 6.10 [facility] CHEM PANEL Magnesium Lvl 2.4 1.8 - 2.4 06/19 [facility] ELECTROLYTE AGAP 15.1 10.0 - 06/19 [facility] S 20.0 [facility] ELECTROLYTE eGFR 69 06/19 Result [facility] /2014 Comment: The Medical eGFR is Center calculated using the CKD-EPI formula. In most young, healthy individuals the eGFR will be >90 mL/min/1.73m2 . The eGFR declines with age. An eGFR of 60-89 may be normal in some populations, particularly the elderly, for whom the CKD-EPI formula has not been extensively validated. Use of the eGFR is not recommended in the following populations:< br/>
Sasha viduals with unstable creatinine concentration s, including patients and those with serious co-morbid conditions.<b r/>
Patie nts with extremes in muscle mass or diet.

The data above are obtained from the National Kidney Disease Education Program (NKDEP) which additionally recommends that when the eGFR is used in patients with extremes of body mass index for purposes of drug dosing, the eGFR should be multiplied by the estimated BMI. ELECTROLYTE Calcium Lvl 8.9 8.5 - 10.5 12/ [facility] S /2014 [facility] ELECTROLYTE CO2 27 24 - 32 12/ [facility] /2014 [facility] ELECTROLYTE Chloride Lvl 105 95 - 109 12/ [facility]2014 [facility] ELECTROLYTE Potassium Lvl 4.1 3.5 - 5.1 12/ [facility] /2014 [facility] ELECTROLYTE Sodium Lvl 143 135 - 145 12/ [facility] /2014 [facility] ELECTROLYTE Creatinine 1.15 0.50 - 12 [facility] S Lvl 1.40 /2014 [facility] ELECTROLYTE BUN 32 7 - 22 12/ [facility]2014 [facility] ELECTROLYTE Glucose Lvl 104 70 - 99 12/ [facility] HEMATOLOGY Eosinophils # 0.2 0.0 - 0.5 12/ [facility]2014 [facility] HEMATOLOGY Lymphocytes # 0.8 1.0 - 5.5 12/ [address] HEMATOLOGY Monocytes # 0.7 0.0 - 0.8 12/ [facility]2014 [facility] HEMATOLOGY Segs-Bands # 4.0 1.5 - 8.1 12/ [address] HEMATOLOGY Eosinophils 3.1 0.0 - 4.0 12/ [facility]2014 [facility] HEMATOLOGY Basophils 0.7 0.0 - 1.0 12/ [facility]2014 [facility] HEMATOLOGY Lymphocytes 14.1 20.0 - 12/12 [place] 40.0 /2014 [facility] HEMATOLOGY Monocytes 12.9 2.0 - 12.0 12/ [facility] /[address] [place] [address] HEMATOLOGY Segs 69.2 45.0 - 12/12 [place] 75.0 [facility] HEMATOLOGY MCHC 33.2 32.0 - 12/12 [place] 36.0 /2014 [facility] HEMATOLOGY MCH 32.7 27.0 - 12/12 [place] 31.0 [facility] HEMATOLOGY MCV 98.7 80.0 - 12/12 [place] 94.0 /2014 [facility] HEMATOLOGY Hct 39.0 42.0 - 12/12 [place] 54.0 /2014 [facility] HEMATOLOGY MPV 9.3 7.4 - 10.4 12/ [address] HEMATOLOGY Platelet 180 133 - 450 12/ [facility] /2014 [facility] HEMATOLOGY RDW 13.8 11.5 - 12/12 [place] 14.5 [facility] HEMATOLOGY RBC 3.95 4.70 - 06/19 [place] 6.10 [facility] HEMATOLOGY WBC 5.8 3.7 - 10.4 06/[address] HEMATOLOGY Hgb 12.9 14.0 - 06/19 [place] 18.0 [facility] CARDIAC BNP 437 <=100 06/18 [facility] ENZYMES pg/mL [facility] CHEM PANEL Albumin Lvl 3.4 3.5 - 5.0 06/[address] CHEM PANEL Total Protein 7.1 6.4 - 8.4 06/[address] CHEM PANEL AST 23 0 - 37 06/[address] CHEM PANEL Alk Phos 63 39 - 136 06/[address] CHEM PANEL Globulin 3.7 2.0 - 4.0 06/18 [facility]2014 [facility] CHEM PANEL A/G Ratio 0.9 0.7 - 1.6 06/[address] CHEM PANEL ALT 23 0 - 65 06/[address] CHEM PANEL Bili Indirect 0.3 0.0 - 1.0 06/[address] CHEM PANEL Bili Total 0.4 0.2 - 1.3 06/[address] CHEM PANEL Bili Direct 0.1 0.0 - 0.3 06/[address] CHEM PANEL Magnesium Lvl 2.3 1.8 - 2.4 06/[address] CHEM PANEL Phosphorus 4.5 2.5 - 4.5 06/[address] ELECTROLYTE AGAP 12.2 10.0 - 06/18 [facility] S 20.0 [facility] ELECTROLYTE eGFR 75 06/18 [facility] S /2014 Comment: The Medical eGFR is Center calculated using the CKD-EPI formula. In most young, healthy individuals the eGFR will be >90 mL/min/1.73m2 . The eGFR declines with age. An eGFR of 60-89 may be normal in some populations, particularly the elderly, for whom the CKD-EPI formula has not been extensively validated. Use of the eGFR is not recommended in the following populations:< br/>
Sasha viduals with unstable creatinine concentration s, including patients and those with serious co-morbid conditions.<b r/>
Patie nts with extremes in muscle mass or diet.

The data above are obtained from the National Kidney Disease Education Program (NKDEP) which additionally recommends that when the eGFR is used in patients with extremes of body mass index for purposes of drug dosing, the eGFR should be multiplied by the estimated BMI. ELECTROLYTE Sodium Lvl 140 135 - 145 06/18 [facility] ELECTROLYTE Potassium Lvl 4.2 3.5 - 5.1 06/18 [facility] ELECTROLYTE CO2 27 24 - 32 12 [facility]2014 [facility] ELECTROLYTE Chloride Lvl 105 95 - 109 06/18 [facility] ELECTROLYTE Glucose Lvl 92 70 - 99 06/18 [facility]2014 [facility] ELECTROLYTE Creatinine 1.07 0.50 - 06/18 [facility] Lvl 1.40 [facility] ELECTROLYTE BUN 30 7 - 22 06/18 [facility]2014 [facility] ELECTROLYTE Calcium Lvl 8.8 8.5 - 10.5 06/18 [facility] HEMATOLOGY PTT 39.2 22.9 - 06/18 [facility] 35.8 [facility] HEMATOLOGY INR 1.93 0.85 - 06/18 [place] 1.17 [facility] HEMATOLOGY PT 22.4 12.0 - 06/18 [facility] 14.7 [facility] HEMATOLOGY PTT 40.9 22.9 - 06/17 [place] 35.8 [facility] HEMATOLOGY PT 24.7 12.0 - 06/17 [facility] 14.7 [facility] HEMATOLOGY INR 2.19 0.85 - 06/17 [facility] 1.17 [facility] CHEM PANEL Phosphorus 4.1 2.5 - 4.5 06/17 [facility] CHEM PANEL Magnesium Lvl 2.2 1.8 - 2.4 06/17 [facility] CHEM PANEL eGFR 79 06/17 Result Comment: The Medical eGFR is Center calculated using the CKD-EPI formula. In most young, healthy individuals the eGFR will be >90 mL/min/1.73m2 . The eGFR declines with age. An eGFR of 60-89 may be normal in some populations, particularly the elderly, for whom the CKD-EPI formula has not been extensively validated. Use of the eGFR is not recommended in the following populations:< br/>
Sasha viduals with unstable creatinine concentration s, including patients and those with serious co-morbid conditions.<b r/>
Patie nts with extremes in muscle mass or diet.

The data above are obtained from the National Kidney Disease Education Program (NKDEP) which additionally recommends that when the eGFR is used in patients with extremes of body mass index for purposes of drug dosing, the eGFR should be multiplied by the estimated BMI. CHEM PANEL Potassium Lvl 4.1 3.5 - 5.1 12 [facility] CHEM PANEL Sodium Lvl 144 135 - 145 12 [facility] CHEM PANEL Chloride Lvl 105 95 - 109 06/17 2014 [facility] CHEM PANEL Calcium Lvl 9.0 8.5 - 10.5 06/17 2014 [facility] CHEM PANEL CO2 28 24 - 32 12 [facility] CHEM PANEL AGAP 15.1 10.0 - 06/17 [place] 20.0 [facility] CHEM PANEL BUN 29 7 - 22 06/17 [facility] CHEM PANEL Glucose Lvl 108 70 - 99 06/17 [facility] CHEM PANEL Creatinine 1.03 0.50 - 06/17 [facility] Lvl 1.40 /2014 [facility] HEMATOLOGY Hgb 13.3 14.0 - 12 [place] 18.0 [facility] HEMATOLOGY WBC 5.3 3.7 - 10.4 06/17 [facility] HEMATOLOGY Platelet 184 133 - 450 06/17 [facility] HEMATOLOGY MCHC 33.1 32.0 - 12 [place] 36.0 [facility] HEMATOLOGY MPV 9.5 7.4 - 10.4 12 [facility] HEMATOLOGY RDW 13.9 11.5 - 12 [place] 14.5 [facility] HEMATOLOGY MCH 32.6 27.0 - 12 [place] 31.0 [facility] HEMATOLOGY Hct 40.1 42.0 - 12 [place] 54.0 [facility] HEMATOLOGY RBC 4.07 4.70 - 1210 [place] 6.10 [facility] HEMATOLOGY MCV 98.6 80.0 - 12 [place] 94.0 [facility] HEMATOLOGY Lymphocytes 18.9 20.0 - 12 [place] 40.0 [facility] HEMATOLOGY Segs 62.9 45.0 - 12 [place] 75.0 [facility] HEMATOLOGY Eosinophils # 0.2 0.0 - 0.5 12 [facility] HEMATOLOGY Monocytes # 0.7 0.0 - 0.8 12 [facility] HEMATOLOGY Basophils 0.9 0.0 - 1.0 12 [facility] HEMATOLOGY Lymphocytes # 1.0 1.0 - 5.5 12 [facility] HEMATOLOGY Segs-Bands # 3.3 1.5 - 8.1 06/17 [facility] HEMATOLOGY Eosinophils 3.4 0.0 - 4.0 06/17 [facility] HEMATOLOGY Monocytes 13.9 2.0 - 12.0 06/[address] [place] [address] CARDIAC Troponin-T <0.010 0.000 - 06/16 [place] ENZYMES 0.100 [facility] CARDIAC Troponin-I <0.015 0.00 - 06/16 [facility] ENZYMES ng/mL 0.40 [facility] CARDIAC Total CK 69 12 - 191 06/16 [facility] ENZYMES [facility] CHEM PANEL Phosphorus 4.9 2.5 - 4.5 06/[address] [place] [address] CARDIAC BNP 508 <=100 06/16 [facility] ENZYMES pg/mL /2014 [facility] HEMATOLOGY Segs-Bands # 2.7 1.5 - 8.1 06/16 [facility] HEMATOLOGY Lymphocytes # 0.7 1.0 - 5.5 06/16 [facility] HEMATOLOGY Monocytes # 0.6 0.0 - 0.8 06/16 [facility] HEMATOLOGY Eosinophils # 0.2 0.0 - 0.5 06/16 [facility] HEMATOLOGY Basophils 0.9 0.0 - 1.0 06/16 [facility] HEMATOLOGY Monocytes 15.0 2.0 - 12.0 06/[address] [place] [address] HEMATOLOGY Eosinophils 5.1 0.0 - 4.0 06/[address] [place] [address] HEMATOLOGY Lymphocytes 16.2 20.0 - 12 [place] 40.0 [facility] HEMATOLOGY Segs 62.8 45.0 - 12 [facility] [place] 75.0 [facility] HEMATOLOGY MPV 9.7 7.4 - 10.4 12/ [facility] HEMATOLOGY MCHC 33.2 32.0 - 12/ [place] 36.0 /2014 [facility] HEMATOLOGY RDW 14.2 11.5 - 12/ [place] 14.5 /2014 [facility] HEMATOLOGY Platelet 166 133 - 450 12/ [facility] HEMATOLOGY MCV 98.9 80.0 - 12 [facility] 94.0 /2014 [facility] HEMATOLOGY MCH 32.8 27.0 - 12 [facility] 31.0 /2014 [facility] HEMATOLOGY RBC 4.07 4.70 - 12 [place] 6.10 /2014 [facility] HEMATOLOGY Hgb 13.3 14.0 - 12 [facility] 18.0 /2014 [facility] HEMATOLOGY Hct 40.2 42.0 - 12 [facility] 54.0 /2014 [facility] HEMATOLOGY WBC 4.2 3.7 - 10.4 12 [facility] CARDIAC BNP 281 <=100 06/14 [facility] ENZYMES pg/mL /2014 [facility] CHEM PANEL B/C Ratio 29 6 - 25 06/14 [facility] CHEM PANEL Globulin 3.7 2.0 - 4.0 06/14 [facility] CHEM PANEL A/G Ratio 0.9 0.7 - 1.6 06/14 [facility] CHEM PANEL ALT 23 0 - 65 06/14 [facility] CHEM PANEL Total Protein 6.9 6.4 - 8.4 06/14 [facility] CHEM PANEL Albumin Lvl 3.2 3.5 - 5.0 06/14 [facility] CHEM PANEL AST 19 0 - 37 12 [facility] CHEM PANEL Alk Phos 54 39 - 136 12 [facility] CHEM PANEL Bili Total 0.4 0.2 - 1.3 12 [facility] HEMATOLOGY PTT 39.3 22.9 - 12 [place] 35.8 /2014 [facility] HEMATOLOGY PT 19.1 12.0 - 12 [facility] 14.7 /2014 [facility] HEMATOLOGY INR 1.57 0.85 - 06/14 [place] 1.17 [facility] CHEM PANEL Phosphorus 3.6 2.5 - 4.5 11 [facility] CHEM PANEL Magnesium Lvl 2.3 1.8 - 2.4 05/20 [facility] ELECTROLYTE AGAP 11.9 10.0 - 05/20 [facility] S 20.0 [facility] ELECTROLYTE Calcium Lvl 8.7 8.5 - 10.5 05/20 [facility] ELECTROLYTE eGFR 77 05/20 Result [facility] Comment: The Medical eGFR is Center calculated using the CKD-EPI formula. In most young, healthy individuals the eGFR will be >90 mL/min/1.73m2 . The eGFR declines with age. An eGFR of 60-89 may be normal in some populations, particularly the elderly, for whom the CKD-EPI formula has not been extensively validated. Use of the eGFR is not recommended in the following populations:< br/>
Sasha viduals with unstable creatinine concentration s, including patients and those with serious co-morbid conditions.<b r/>
Patie nts with extremes in muscle mass or diet.

The data above are obtained from the National Kidney Disease Education Program (NKDEP) which additionally recommends that when the eGFR is used in patients with extremes of body mass index for purposes of drug dosing, the eGFR should be multiplied by the estimated BMI. ELECTROLYTE CO2 26 24 - 32 05/20 [facility] ELECTROLYTE Chloride Lvl 106 95 - 109 05/20 [facility] 2014 [facility] ELECTROLYTE Potassium Lvl 3.9 3.5 - 5.1 05/20 [facility] 2014 [facility] ELECTROLYTE Creatinine 1.05 0.50 - 05/20 [facility] S Lvl 1.40 [facility] ELECTROLYTE Sodium Lvl 140 135 - 145 05/20 [facility] ELECTROLYTE Glucose Lvl 111 70 - 99 05/20 [facility] ELECTROLYTE BUN 27 7 - 22 05/20 [facility] 2014 [facility] HEMATOLOGY Segs 74.7 45.0 - 05/20 [facility] 75.0 [facility] HEMATOLOGY Monocytes 13.5 2.0 - 12.0 05/20 [facility]2014 [facility] HEMATOLOGY Eosinophils 1.7 0.0 - 4.0 05/20 [facility]2014 [facility] HEMATOLOGY Lymphocytes 9.6 20.0 - 05/20 [place] 40.0 [facility] HEMATOLOGY Monocytes # 0.9 0.0 - 0.8 11 [facility] HEMATOLOGY Lymphocytes # 0.7 1.0 - 5.5 11 [facility] HEMATOLOGY Segs-Bands # 5.2 1.5 - 8.1 11 [facility] HEMATOLOGY Basophils 0.5 0.0 - 1.0 11 [facility] HEMATOLOGY Macrocyte 1+ None Seen 05/20 [facility] *ABN* /2014 [facility] (05/20/15 3:43 AM) [facility] HEMATOLOGY Eosinophils # 0.1 0.0 - 0.5 11 [facility] HEMATOLOGY Hgb 12.9 14.0 - 11 18.0 [facility] HEMATOLOGY RBC 4.01 4.70 - 05/20 [place] 6.10 [facility] HEMATOLOGY WBC 7.0 3.7 - 10.4 05/20 [facility] HEMATOLOGY MCHC 32.2 32.0 - 11 [place] 36.0 [facility] HEMATOLOGY MCH 32.2 27.0 - 11 31.0 [facility] HEMATOLOGY Hct 40.2 42.0 - 05/20 [place] 54.0 /2014 [facility] HEMATOLOGY RDW 15.1 11.5 - 11 14.5 [facility] HEMATOLOGY MCV 100.2 80.0 - 05/20 94.0 /2014 [facility] HEMATOLOGY Platelet 167 133 - 450 11 [facility] HEMATOLOGY MPV 9.5 7.4 - 10.4 05/20 [facility] HEMATOLOGY PTT 39.1 22.9 - 05/20 [place] 35.8 /2014 [facility] HEMATOLOGY INR 2.04 0.85 - 05/20 [place] 1.17 [facility] HEMATOLOGY PT 23.4 12.0 - 11 14.7 [facility] PARATHYROID Ca Norm WB 1.11 1.05 - 05/20 [place] PROFILE 1.25 [facility] PARATHYROID Ca Ion WB 1.12 1.05 - 05/20 [place] PROFILE 1. [facility] TOXICOLOGY Lidocaine Lvl 2.9 1.5 - 5.0 11 [facility] CHEM PANEL Phosphorus 4.0 2.5 - 4.5 11 [facility] CHEM PANEL Magnesium Lvl 2.1 1.8 - 2.4 05/19 [facility] ELECTROLYTE AGAP 14.3 10.0 - 05/19 [facility] S 20.0 [facility] ELECTROLYTE eGFR 72 05/19 Result [facility] Comment: The Medical eGFR is Center calculated using the CKD-EPI formula. In most young, healthy individuals the eGFR will be >90 mL/min/1.73m2 . The eGFR declines with age. An eGFR of 60-89 may be normal in some populations, particularly the elderly, for whom the CKD-EPI formula has not been extensively validated. Use of the eGFR is not recommended in the following populations:< br/>
Sasha viduals with unstable creatinine concentration s, including patients and those with serious co-morbid conditions.<b r/>
Patie nts with extremes in muscle mass or diet.

The data above are obtained from the National Kidney Disease Education Program (NKDEP) which additionally recommends that when the eGFR is used in patients with extremes of body mass index for purposes of drug dosing, the eGFR should be multiplied by the estimated BMI. ELECTROLYTE Chloride Lvl 103 95 - 109 05/19 [facility] ELECTROLYTE CO2 24 24 - 32 05/19 [facility]2014 [facility] ELECTROLYTE Calcium Lvl 8.6 8.5 - 10.5 05/19 [facility] ELECTROLYTE Potassium Lvl 4.3 3.5 - 5.1 05/19 [facility] ELECTROLYTE Creatinine 1.12 0.50 - 05/19 [facility] S Lvl 1.40 [facility] Center ELECTROLYTE Sodium Lvl 137 135 - 145 05/19 [facility] /2014 [facility] ELECTROLYTE Glucose Lvl 115 70 - 99 05/19 [facility] S /2014 [facility] ELECTROLYTE BUN 28 7 - 22 05/19 [facility] /2014 [facility] HEMATOLOGY PT 21.6 12.0 - 05/19 [facility] 14.7 [facility] HEMATOLOGY INR 1.84 0.85 - 05/19 [facility] 1.17 [facility] HEMATOLOGY PTT 32.6 22.9 - 05/19 [place] 35.8 /2014 [facility] HEMATOLOGY Monocytes 12.4 2.0 - 12.0 05/19 [facility]2014 [facility] HEMATOLOGY Basophils 0.8 0.0 - 1.0 11 [facility] HEMATOLOGY Eosinophils 2.2 0.0 - 4.0 11 [facility] HEMATOLOGY Lymphocytes 11.3 20.0 - 05/19 [place] 40.0 /2014 [facility] HEMATOLOGY Segs-Bands # 5.6 1.5 - 8.1 11 [facility] HEMATOLOGY Lymphocytes # 0.9 1.0 - 5.5 05/19 [facility] HEMATOLOGY Monocytes # 0.9 0.0 - 0.8 11 [facility] HEMATOLOGY Segs 73.3 45.0 - 05/19 [place] 75.0 /2014 [facility] HEMATOLOGY Eosinophils # 0.2 0.0 - 0.5 05/19 [facility] HEMATOLOGY Basophils # 0.1 0.0 - 0.2 05/19 [facility] HEMATOLOGY Macrocyte 1+ None Seen 05/19 [facility] *ABN* /2014 [facility] (05/19/15 8:14 AM) [place] HEMATOLOGY RDW 15.2 11.5 - 05/19 [place] 14.5 [facility] HEMATOLOGY Platelet 209 133 - 450 05/19 [facility] HEMATOLOGY MPV 9.8 7.4 - 10.4 05/19 [facility] HEMATOLOGY MCV 100.1 80.0 - 05/19 94.0 [facility] HEMATOLOGY Hgb 14.5 14.0 - 05/19 18.0 [facility] HEMATOLOGY Hct 44.0 42.0 - 05/19 54.0 [facility] HEMATOLOGY MCH 33.0 27.0 - 05/19 [place] 31.0 [facility] HEMATOLOGY MCHC 33.0 32.0 - 05/19 [place] 36.0 [facility] HEMATOLOGY WBC 7.6 3.7 - 10.4 05/19 [facility] HEMATOLOGY RBC 4.39 4.70 - 05/19 [place] 6.10 [facility] PARATHYROID Ca Norm WB 1.05 1.05 - 05/19 [place] PROFILE . [facility] PARATHYROID Ca Ion WB 1.10 1.05 - 05/19 [place] PROFILE . [facility] CHEM PANEL Phosphorus 4.4 2.5 - 4.5 05/19 [facility] CHEM PANEL eGFR 86 05/19 Result Comment: The Medical eGFR is Center calculated using the CKD-EPI formula. In most young, healthy individuals the eGFR will be >90 mL/min/1.73m2 . The eGFR declines with age. An eGFR of 60-89 may be normal in some populations, particularly the elderly, for whom the CKD-EPI formula has not been extensively validated. Use of the eGFR is not recommended in the following populations:< br/>
Sasha viduals with unstable creatinine concentration s, including patients and those with serious co-morbid conditions.<b r/>
Patie nts with extremes in muscle mass or diet.

The data above are obtained from the National Kidney Disease Education Program (NKDEP) which additionally recommends that when the eGFR is used in patients with extremes of body mass index for purposes of drug dosing, the eGFR should be multiplied by the estimated BMI. CHEM PANEL CO2 26 24 - 32 05/19 [facility] CHEM PANEL Calcium Lvl 9.0 8.5 - 10.5 05/19 [facility] CHEM PANEL AGAP 16.4 10.0 - 05/19 [facility] 20.0 [facility] CHEM PANEL Chloride Lvl 102 95 - 109 05/19 [facility] CHEM PANEL Potassium Lvl 6.4 3.5 - 5.1 05/19 Result Comment: [facility] Result(s) called to Jenn Reynolds at 05/19/2015 09:00 by galdino. Read back OK.
<b r/>Specimen Slightly Hemolyzed. CHEM PANEL Glucose Lvl 128 70 - 99 05/19 [facility] CHEM PANEL Sodium Lvl 138 135 - 145 05/19 [facility] CHEM PANEL BUN 29 7 - 22 05/19 [facility] CHEM PANEL Creatinine 0.96 0.50 - 05/19 [facility] Lvl 1.40 /2014 [facility] CHEM PANEL Magnesium Lvl 2.4 1.8 - 2.4 05/19 [facility]2014 [facility] CARDIAC BNP 313 <=100 05/19 [facility] ENZYMES pg/mL /2014 [facility] THYROID TSH 2.160 0.360 - 05/19 [facility] PANEL 3.740 /2014 [facility] CHEM PANEL Total Protein 6.6 6.4 - 8.4 05/18 [facility] CHEM PANEL Albumin Lvl 3.3 3.5 - 5.0 05/18 2014 [facility] CHEM PANEL Bili Total 0.6 0.2 - 1.3 05/18 [facility] CHEM PANEL Bili Direct 0.1 0.0 - 0.3 05/18 [facility] CHEM PANEL AST 21 0 - 37 05/18 [facility] CHEM PANEL Alk Phos 57 39 - 136 05/18 [facility]2014 [facility] CHEM PANEL ALT 25 0 - 65 05/18 [facility]2014 [facility] CHEM PANEL A/G Ratio 1.0 0.7 - 1.6 05/18 [facility]2014 [facility] CHEM PANEL Bili Indirect 0.5 0.0 - 1.0 05/18 [facility] CHEM PANEL Globulin 3.3 2.0 - 4.0 05/18 [facility] LIPIDS VLDL 28 05/18 [facility] LIPIDS CHD Risk 2.42 4.00 - 05/18 [facility] 7.30 [facility] LIPIDS Trig 140 <=149 05/18 [facility] mg/dL [facility] LIPIDS Chol 97 <=199 05/18 [facility] mg/dL [facility] LIPIDS HDL 40 >=61 mg/dL 05/18 [facility] [address] [place] [address] LIPIDS LDL 29 <=99 mg/dL 05/18 [facility] (Calculated) [facility] CARDIAC BNP 316 <=100 05/17 [facility] ENZYMES pg/mL [facility] CHEM PANEL B/C Ratio 25 6 - 25 05/17 [facility] [address] [place] [address] CHEM PANEL Globulin 3.2 2.0 - 4.0 05/[address] CHEM PANEL A/G Ratio 1.1 0.7 - 1.6 05/[address] CHEM PANEL ALT 26 0 - 65 05/[address] CHEM PANEL Albumin Lvl 3.4 3.5 - 5.0 05/[address] CHEM PANEL Total Protein 6.6 6.4 - 8.4 05/[address] CHEM PANEL Alk Phos 61 39 - 136 05/[address] CHEM PANEL Bili Total 0.5 0.2 - 1.3 05/17 [facility] CHEM PANEL AST 25 0 - 37 05/17 [facility] HEMATOLOGY WBC 5.4 3.7 - 10.4 05/17 [facility] HEMATOLOGY RBC 3.96 4.70 - 05/17 [place] 6.10 /2014 [facility] HEMATOLOGY Hgb 12.7 14.0 - 05/17 [place] 18.0 [facility] HEMATOLOGY Hct 40.0 42.0 - 05/17 [place] 54.0 /2014 [facility] HEMATOLOGY MCV 101.1 80.0 - 05/17 [place] 94.0 /2014 [facility] HEMATOLOGY MCHC 31.8 32.0 - 11 [place] 36.0 [facility] HEMATOLOGY MCH 32.2 27.0 - 05/17 [place] 31.0 [facility] HEMATOLOGY Platelet 182 133 - 450 05/17 [facility] HEMATOLOGY RDW 15.4 11.5 - 05/17 [place] 14.5 [facility] HEMATOLOGY MPV 9.7 7.4 - 10.4 05/17 [facility] HEMATOLOGY Monocytes # 0.6 0.0 - 0.8 05/17 [facility] HEMATOLOGY Eosinophils # 0.2 0.0 - 0.5 05/17 [facility] HEMATOLOGY Macrocyte 1+ None Seen 05/17 [facility] *ABN* /2014 [facility] (05/17/15 2:26 PM) [place] HEMATOLOGY Monocytes 11.6 2.0 - 12.0 05/17 [facility] HEMATOLOGY Lymphocytes 8.3 20.0 - 05/17 [place] 40.0 [facility] HEMATOLOGY Eosinophils 2.9 0.0 - 4.0 05/17 [facility] HEMATOLOGY Basophils 0.7 0.0 - 1.0 05/17 [facility] HEMATOLOGY Segs-Bands # 4.1 1.5 - 8.1 05/17 [facility] HEMATOLOGY Lymphocytes # 0.4 1.0 - 5.5 05/17 [facility] HEMATOLOGY Segs 76.5 45.0 - 05/17 [place] 75.0 /2014 [facility] HEMATOLOGY PTT 33.6 22.9 - 05/17 [place] 35.8 /2014 [facility] HEMATOLOGY PT 18.6 12.0 - 05/17 [facility] 14.7 [facility] HEMATOLOGY INR 1.52 0.85 - 05/17 [place] 1.17 [facility] CARDIAC proBNP 2873 0 - 125 03/02 [facility] CHEM PANEL Phosphorus 4.4 2.5 - 4.5 03/02 [facility] CHEM PANEL Magnesium Lvl 2.2 1.8 - 2.4 03/02 [facility] ELECTROLYTE AGAP 14.1 10.0 - 03/02 [facility] S 20.0 [facility] ELECTROLYTE eGFR 55 03/02 [facility] Comment: The [facility] eGFR is Center calculated using the CKD-EPI formula. In most young, healthy individuals the eGFR will be >90 mL/min/1.73m2 . The eGFR declines with age. An eGFR of 60-89 may be normal in some populations, particularly the elderly, for whom the CKD-EPI formula has not been extensively validated. Use of the eGFR is not recommended in the following populations:< br/>
Sasha viduals with unstable creatinine concentration s, including patients and those with serious co-morbid conditions.<b r/>
Patie nts with extremes in muscle mass or diet.

The data above are obtained from the National Kidney Disease Education Program (NKDEP) which additionally recommends that when the eGFR is used in patients with extremes of body mass index for purposes of drug dosing, the eGFR should be multiplied by the estimated BMI. ELECTROLYTE Sodium Lvl 138 135 - 145 03/02 [facility] ELECTROLYTE Glucose Lvl 99 70 - 99 03/02 [facility] ELECTROLYTE BUN 27 7 - 22 03/02 [facility] ELECTROLYTE Creatinine 1.4 0.5 - 1.4 03/02 [facility] Lvl [facility] ELECTROLYTE Potassium Lvl 4.1 3.5 - 5.1 03/02 [facility] ELECTROLYTE Calcium Lvl 8.8 8.5 - 10.5 03/02 [facility] ELECTROLYTE Chloride Lvl 104 95 - 109 03/02 [facility] ELECTROLYTE CO2 24 24 - 32 03/02 [facility] HEMATOLOGY RBC 4.30 4.70 - 03/02 [place] 6.10 /2014 [facility] HEMATOLOGY WBC 6.1 3.7 - 10.4 03/02 [facility] HEMATOLOGY MCV 99.5 80.0 - 03/02 [place] 94.0 /2014 [facility] HEMATOLOGY MCH 33.1 27.0 - 03/02 [place] 31.0 /2014 [facility] HEMATOLOGY MCHC 33.3 32.0 - 03/02 [place] 36.0 /2014 [facility] HEMATOLOGY Hgb 14.2 14.0 - 03/02 [place] 18.0 [facility] HEMATOLOGY Hct 42.8 42.0 - 03/02 [place] 54.0 [facility] HEMATOLOGY RDW 14.8 11.5 - 03/02 [place] 14.5 [facility] HEMATOLOGY Platelet 217 133 - 450 03/02 [facility] HEMATOLOGY MPV 9.5 7.4 - 10.4 03/02 [facility] HEMATOLOGY Segs 65.3 45.0 - 03/02 [place] 75.0 /2014 [facility] HEMATOLOGY Lymphocytes 18.1 20.0 - 03/02 [place] 40.0 [facility] HEMATOLOGY Monocytes 12.6 2.0 - 12.0 03/02 [facility] HEMATOLOGY Eosinophils 3.4 0.0 - 4.0 03/02 [facility] HEMATOLOGY Basophils 0.6 0.0 - 1.0 03/02 [facility] HEMATOLOGY Segs-Bands # 4.0 1.5 - 8.1 03/02 [facility] HEMATOLOGY Lymphocytes # 1.1 1.0 - 5.5 03/02 [facility] HEMATOLOGY Eosinophils # 0.2 0.0 - 0.5 03/02 [facility] HEMATOLOGY Monocytes # 0.8 0.0 - 0.8 03/02 [facility] CARDIAC proBNP 2595 0 - 125 03/01 [facility] CHEM PANEL Phosphorus 4.1 2.5 - 4.5 03/01 [facility] CHEM PANEL Magnesium Lvl 2.3 1.8 - 2.4 03/01 [facility] ELECTROLYTE AGAP 12.0 10.0 - 03/01 [facility] S 20.0 [facility] ELECTROLYTE eGFR 50 03/01 Result [facility] Comment: The Medical eGFR is Center calculated using the CKD-EPI formula. In most young, healthy individuals the eGFR will be >90 mL/min/1.73m2 . The eGFR declines with age. An eGFR of 60-89 may be normal in some populations, particularly the elderly, for whom the CKD-EPI formula has not been extensively validated. Use of the eGFR is not recommended in the following populations:< br/>
Sasha viduals with unstable creatinine concentration s, including patients and those with serious co-morbid conditions.<b r/>
Patie nts with extremes in muscle mass or diet.

The data above are obtained from the National Kidney Disease Education Program (NKDEP) which additionally recommends that when the eGFR is used in patients with extremes of body mass index for purposes of drug dosing, the eGFR should be multiplied by the estimated BMI. ELECTROLYTE Glucose Lvl 113 70 - 99 03/[address] ELECTROLYTE Chloride Lvl 105 95 - 109 03/[address] ELECTROLYTE Sodium Lvl 138 135 - 145 03/[address] ELECTROLYTE Potassium Lvl 4.0 3.5 - 5.1 03/[address] ELECTROLYTE BUN 31 7 - 22 03/[address] ELECTROLYTE Creatinine 1.5 0.5 - 1.4 03/[address] ELECTROLYTE CO2 25 24 - 32 03/[address] ELECTROLYTE Calcium Lvl 8.5 8.5 - 10.5 03/[address] HEMATOLOGY Lymphocytes # 1.1 1.0 - 5.5 03/[address] HEMATOLOGY Monocytes # 1.0 0.0 - 0.8 03/[address] HEMATOLOGY Eosinophils 3.1 0.0 - 4.0 / [address] HEMATOLOGY Monocytes 14.8 2.0 - 12.0 03/[address] HEMATOLOGY Basophils 1.1 0.0 - 1.0 / [address] HEMATOLOGY Segs-Bands # 4.4 1.5 - 8.1 03/[address] HEMATOLOGY Basophils # 0.1 0.0 - 0.2 03/[address] HEMATOLOGY Eosinophils # 0.2 0.0 - 0.5 08 /2014 [facility] HEMATOLOGY Segs 65.3 45.0 - 03/01 [place] 75.0 /2014 [facility] HEMATOLOGY Lymphocytes 15.7 20.0 - 03/01 [place] 40.0 /2014 [facility] HEMATOLOGY INR 1.67 0.85 - 03/01 [place] 1.17 /2014 [facility] HEMATOLOGY PT 20.0 12.0 - 03/01 [place] 14.7 /2014 [facility] HEMATOLOGY PTT 33.7 22.9 - 03/01 [place] 35.8 /2014 [facility] HEMATOLOGY MCHC 33.5 32.0 - 03/01 [place] 36.0 /2014 [facility] HEMATOLOGY MCV 98.7 80.0 - 03/01 [place] 94.0 /2014 [facility] HEMATOLOGY Hgb 14.4 14.0 - 03/01 [place] 18.0 /2014 [facility] HEMATOLOGY MCH 33.1 27.0 - 03/01 [place] 31.0 /2014 [facility] HEMATOLOGY MPV 9.4 7.4 - 10.4 03/01 [facility] HEMATOLOGY Platelet 216 133 - 450 03/01 [facility] HEMATOLOGY RDW 14.3 11.5 - 03/01 [place] 14.5 /2014 [facility] HEMATOLOGY RBC 4.36 4.70 - 03/01 [place] 6.10 /2014 [facility] HEMATOLOGY WBC 6.7 3.7 - 10.4 03/01 [facility] HEMATOLOGY Hct 43.0 42.0 - 03/01 [place] 54.0 /2014 [facility] CARDIAC proBNP 2740 0 - 125 02/28 [facility] CHEM PANEL Phosphorus 4.6 2.5 - 4.5 02/28 [facility] CHEM PANEL Magnesium Lvl 2.3 1.8 - 2.4 02/28 [facility] CHEM PANEL eGFR 50 02/28 [facility] Comment: The Medical eGFR is Center calculated using the CKD-EPI formula. In most young, healthy individuals the eGFR will be >90 mL/min/1.73m2 . The eGFR declines with age. An eGFR of 60-89 may be normal in some populations, particularly the elderly, for whom the CKD-EPI formula has not been extensively validated. Use of the eGFR is not recommended in the following populations:< br/>
Sasha viduals with unstable creatinine concentration s, including patients and those with serious co-morbid conditions.<b r/>
Patie nts with extremes in muscle mass or diet.

The data above are obtained from the National Kidney Disease Education Program (NKDEP) which additionally recommends that when the eGFR is used in patients with extremes of body mass index for purposes of drug dosing, the eGFR should be multiplied by the estimated BMI. CHEM PANEL Glucose Lvl 112 70 - 99 02/[address] CHEM PANEL BUN 35 7 - 22 02/[address] CHEM PANEL Creatinine 1.5 0.5 - 1.4 02/28 [facility] /2014 [facility] CHEM PANEL CO2 28 24 - 32 02/[address] CHEM PANEL AGAP 11.7 10.0 - 02/28 [facility] 20.0 [facility] CHEM PANEL Calcium Lvl 8.5 8.5 - 10.5 02/[address] CHEM PANEL Sodium Lvl 140 135 - 145 02/[address] CHEM PANEL Potassium Lvl 3.7 3.5 - 5.1 02/[address] CHEM PANEL Chloride Lvl 104 95 - 109 02/[address] CHEM PANEL A/G Ratio 1.1 0.7 - 1.6 02/[address] CHEM PANEL Globulin 3.3 2.0 - 4.0 02/[address] CHEM PANEL Bili Indirect 0.5 0.0 - 1.0 02/[address] CHEM PANEL Albumin Lvl 3.7 3.5 - 5.0 02/[address] CHEM PANEL AST 45 0 - 37 02/[address] CHEM PANEL ALT 41 0 - 65 02/[address] CHEM PANEL Bili Total 0.7 0.2 - 1.3 02/[address] CHEM PANEL Alk Phos 56 39 - 136 02/[address] CHEM PANEL Bili Direct 0.2 0.0 - 0.3 02/[address] CHEM PANEL Total Protein 7.0 6.4 - 8.4 02/[address] THYROID TSH 1.310 0.360 - 02/28 [facility] [place] PANEL 3.740 /2014 [facility] CHEM PANEL Bili Direct 0.2 0.0 - 0.3 02/27 2014 [facility] CHEM PANEL Total Protein 6.1 6.4 - 8.4 02/[address] CHEM PANEL ALT 35 0 - 65 02/[address] CHEM PANEL Alk Phos 51 39 - 136 02/[address] CHEM PANEL Albumin Lvl 3.1 3.5 - 5.0 02/[address] CHEM PANEL AST 26 0 - 37 02/[address] CHEM PANEL Bili Total 0.9 0.2 - 1.3 02/[address] CHEM PANEL A/G Ratio 1.0 0.7 - 1.6 02/[address] CHEM PANEL Globulin 3.0 2.0 - 4.0 02/[address] CHEM PANEL Bili Indirect 0.7 0.0 - 1.0 02/[address] HEMATOLOGY Eosinophils # 0.1 0.0 - 0.5 02/[address] HEMATOLOGY Monocytes # 0.8 0.0 - 0.8 02/[address] HEMATOLOGY Eosinophils 1.7 0.0 - 4.0 02/[address] HEMATOLOGY Segs 69.8 45.0 - 02/27 [place] 75.0 [facility] HEMATOLOGY Monocytes 12.6 2.0 - 12.0 02/[address] HEMATOLOGY Lymphocytes 15.3 20.0 - 02/27 [place] 40.0 [facility] HEMATOLOGY Basophils 0.6 0.0 - 1.0 02/[address] HEMATOLOGY Lymphocytes # 1.0 1.0 - 5.5 02/[address] HEMATOLOGY Segs-Bands # 4.4 1.5 - 8.1 02/[address] HEMATOLOGY MPV 9.6 7.4 - 10.4 02/[address] HEMATOLOGY WBC 6.2 3.7 - 10.4 02/[address] HEMATOLOGY Hct 42.9 42.0 - 02/27 [place] 54.0 [facility] HEMATOLOGY Hgb 14.3 14.0 - 02/27 [place] 18.0 /2014 [facility] HEMATOLOGY RBC 4.30 4.70 - 02/27 [place] 6.10 /2014 [facility] HEMATOLOGY Platelet 235 133 - 450 02/27 /2014 [facility] HEMATOLOGY RDW 14.6 11.5 - 02/27 [place] 14.5 /2014 [facility] HEMATOLOGY MCV 99.8 80.0 - 02/27 [place] 94.0 /2014 [facility] HEMATOLOGY MCH 33.2 27.0 - 02/27 [place] 31.0 /2014 [facility] HEMATOLOGY MCHC 33.3 32.0 - 02/27 [place] 36.0 /2014 [facility] HEMATOLOGY PTT 39.4 22.9 - 02/27 [place] 35.8 /2014 [facility] HEMATOLOGY PT 24.8 12.0 - 02/27 [place] 14.7 /2014 [facility] HEMATOLOGY INR 2.17 0.85 - 02/27 [place] 1.17 /2014 [facility] URINE AND UA Color Yellow Yellow 02/26 [facility] STOOL *NA* /2014 [facility] (02/26/15 3:21 PM) [place] URINE AND UA Turbidity Clear Clear 02/26 [facility] STOOL (02/26/15 3:21 PM) /2014 [facility] URINE AND UA Leuk Est Negative Negative 02/26 [facility] STOOL (02/26/15 3:21 PM) /2014 [facility] URINE AND UA Nitrite Negative Negative 02/26 [facility] (02/26/15 3:21 PM) /2014 [facility] URINE AND UA Sq Epi Rare /LPF Few /LPF 02/26 [facility] URINE AND UA WBC None Seen None Seen 02/26 [facility] (02/26/15 3:21 PM) /2014 [facility] URINE AND UA Spec Grav 1.010 <=1.030 02/26 [facility] STOOL /2014 [facility] URINE AND UA pH 6.0 5.0 - 8.0 02/26 [facility] STOOL /2014 [facility] URINE AND UA Protein Negative Negative 02/26 [facility] STOOL (02/26/15 3:21 PM) /2014 [facility] URINE AND UA Glucose Negative Negative 02/26 [facility] STOOL (02/26/15 3:21 PM) /2014 [facility] URINE AND UA Bacteria None Seen None Seen 02/26 [facility] STOOL (02/26/15 3:21 PM) /2014 [facility] URINE AND UA RBC 21-50 /HPF 0 - 2 02/26 [facility] STOOL /2014 [facility] URINE AND UA Ketones Negative Negative 02/26 [facility] STOOL *NA* [facility] (02/26/15 3:21 PM) [place] URINE AND UA Bili Negative Negative 02/26 [facility] STOOL *NA* /2014 [facility] (02/26/15 3:21 PM) [place] URINE AND UA Blood Large Negative 02/26 [facility] *ABN* [facility] (02/26/15 3:21 PM) [place] URINE AND UA 0.2 0.1 - 1.0 02/26 [facility] Urobilinogen /2014 [facility] CARDIAC BNP 842 <=100 02/26 [facility] ENZYMES pg/mL /2014 [facility] CARDIAC Troponin-I <0.02 0.00 - 02/26 [facility] ENZYMES 0.40 /2014 [facility] HEMATOLOGY Basophils # 0.1 0.0 - 0.2 02/26 [facility] /[address] [place] [address] Pathology Reports No Data Provided for This Section Diagnostic Reports Report Value Date Source Chest 1view DX EXAM: XR CHEST 1 VIEW 12/12/2018 [facility] DATE: 12/12/2018 6:56 CDT Center INDICATION: arrthymia - arrythmia COMPARISON: 10/09/2018 TECHNIQUE: AP chest IMPRESSION: 1. Small bilateral pleural effusions/thickening is mild bibasilar subsegmental platelike atelectatic changes. Otherwise, lungs are clear. 2. Cardiomediastinal silhouette is upper limits normal size. 3. Osseous structures are stable. Chest 2 views DX EXAM: XR CHEST 2 VIEWS 10/09/2018 [facility] [place] DATE: 10/09/2018 11:34 CDT INDICATION: - pneumonia COMPARISON: Compared to 06/19/2018 and 06/15/2015 TECHNIQUE: PA and lateral chest radiographs FINDINGS: BONES: Prominent osteophytes are present in the thoracic spine. HEART: Cardiomegaly, mild Mediastinum and Jessica: [No mass or vascular abnormality] Lungs: There is persistent blunting of the right lateral and posterior costophrenic angles with thickening of the pleura along the right lung base consistent with pleural thickening. This is stable. No focal infiltrate or mass is present within either lung. IMPRESSION: 1. Changes in the right lung likely representing pleural thickening and fibrosis which are stable. 2. Mild cardiomegaly 3. No acute change. Chest 2 views DX EXAM: XR CHEST 2 VIEWS 06/19/2018 [facility] DATE: 06/19/2018 15:41 [facility] Center INDICATION: SOB - SOB COMPARISON: 06/18/2015 TECHNIQUE: PA and lateral chest radiographs FINDINGS: Lines and tubes: None. Lungs and pleura: Persistent blunting of the right costophrenic sulcus most consistent with pleural thickening. Minimal blunting of the left costophrenic sulcus from pleural thickening versus trace pleu ral effusion. No focal consolidation. No pneumothorax. Heart and mediastinum: The heart size is normal. The mediastinal contours are normal. Bones: No acute bony abnormality is identified. Note made of multilevel degenerative changes of the thoracolumbar spine and degenerative changes of bilateral glenohumeral and acromioclavicular joints. IMPRESSION: 1. No acute radiographic abnormality 2. Persistent blunting of the right costophrenic sulcus most consistent with pleural thickening. Trace left pleural effusion versus pleural thickening Chest 1view DX EXAM: XR CHEST 1 VIEW 06/18/2015 [facility] INDICATION: Pleural effusion COMPARISON: Comparison made to 06/15/2015 at 1625 TECHNIQUE: Single AP view of the chest DISCUSSION: There is a small right pleural effusion. There is likely some associated compressive subsegmental atelectasis. The lungs are otherwise clear. The left lateral costophrenic sulcus is sharp. The cardiomediastinal silhouette is stable. Mild degenerative changes of the AC joints bilaterally. IMPRESSION: Stable appearance of small right pleural effusion. Chest 2 views DX EXAM: CHEST 2 VIEWS 06/15/2015 [facility] [facility] DATE: 06/15/2015, 1625 hours INDICATION: Cough COMPARISON: 02/26/2015 FINDINGS: Upright PA lateral views of the chest were obtained. A small pleural effusion persists on the right, slightly increased in size since the previous study. The left-sided pleural effusion has decreased significantly, with only minimal pleural fluid remainin g. Mild subsegmental atelectasis is present in the right lung base, but the left lung is clear. The heart size is within normal limits. The pulmonary vascularity is symmetrical and normal. No pneumothor ax is seen. No acute skeletal abnormality is detected. IMPRESSION: 1. Slightly increased right-sided pleural effusion with underlying subsegmental atelectasis but no visible pneumonia. 2. Significantly decreased left-sided pleural effusion with improved expansion of the left lung. Chest 1view DX EXAM: Chest 1view , 02/26/2015 [facility] DATE: Feb 26, 2015 11:37:00 PM INDICATION: Dyspnea /See Clinic Indication . FINDINGS: A portable frontal chest radiograph is compared to 02/26/2015 at 1133 hours. Persisting pulmonary edema and bilateral pleural effusions. Unchanged cardiomegaly. The cardiomediastinal silhouet te, remaining soft tissues and osseous structures are unchanged. IMPRESSION: No significant interval change in the radiographic appearance of the chest.. Changes of congestive heart failure again noted. Chest 2 views DX EXAM: CHEST 2 VIEWS 02/26/2015 [facility] DATE: Feb 26, 2015 11:30:00 AM INDICATION: Shortness of Breath COMPARISON: None available. TECHNIQUE: Frontal and lateral chest radiographs FINDINGS: Cardiac silhouette is mildly enlarged. Bilateral pleural effusions are present. Peribronchial thickening in the perihilar regions is associated with relatively mild interstitial edema centrall y no pulmonary septal lines are visible peripherally. EKG leads and electrodes overlie portions of the chest. IMPRESSION: Congestive heart failure Consultation Notes No Data Provided for This Section Discharge Summaries No Data Provided for This Section History and Physicals No Data Provided for This Section Vital Signs Vital Sign Value Date Comments Source Respitory Rate 17 12/16/2018 [facility] Systolic (mm Hg) 124 12/16/2018 [facility] Diastolic (mm Hg) 70 12/16/2018 [facility] Respitory Rate 20 12/16/2018 [facility] Systolic (mm Hg) 106 12/16/2018 [facility] Diastolic (mm Hg) 63 12/16/2018 [facility] Respitory Rate 17 12/16/2018 [facility] Systolic (mm Hg) 96 12/16/2018 [facility] Diastolic (mm Hg) 62 12/16/2018 [facility] Temperature Oral (F) 96.7 F 12/16/2018 [facility] Temperature Oral (F) 96.8 F 12/16/2018 [facility] Temperature Oral (F) 97.8 F 12/16/2018 [facility] BMI Calculated 32.56 12/11/2018 [facility] Weight 100 12/11/2018 [facility] Height 175.26 cm 12/11/2018 [facility] Respitory Rate 19 06/24/2018 [facility] Respitory Rate 19 06/24/2018 [facility] Systolic (mm Hg) 113 06/24/2018 [facility] Diastolic (mm Hg) 61 06/24/2018 [facility] Respitory Rate 18 06/24/2018 [facility] Systolic (mm Hg) 120 06/24/2018 [facility] Diastolic (mm Hg) 64 06/24/2018 [facility] Systolic (mm Hg) 125 06/24/2018 [facility] Diastolic (mm Hg) 62 06/24/2018 [facility] BMI Calculated 31.82 06/24/2018 [facility] Height 175.26 cm 06/24/2018 [facility] Weight 97.727 06/24/2018 [facility] Respitory Rate 18 06/22/2018 [facility] Heart Rate 58 06/22/2018 [facility] Temperature Oral (F) 98 F 06/22/2018 [facility] Systolic (mm Hg) 120 06/22/2018 [facility] Diastolic (mm Hg) 78 06/22/2018 [facility] Systolic (mm Hg) 113 06/21/2018 [facility] Diastolic (mm Hg) 65 06/21/2018 [facility] Respitory Rate 20 06/21/2018 [facility] Heart Rate 55 06/21/2018 [facility] Temperature Oral (F) 97.6 F 06/21/2018 [facility] Heart Rate 65 06/21/2018 [facility] Systolic (mm Hg) 113 06/21/2018 [facility] Diastolic (mm Hg) 73 06/21/2018 [facility] Temperature Oral (F) 97.8 F 06/21/2018 [facility] Respitory Rate 20 06/21/2018 [facility] Height 175.26 cm 06/19/2018 [facility] BMI Calculated 31.84 06/19/2018 [facility] Weight 97.813 06/19/2018 [facility] Height 175.26 cm 06/19/2018 [facility] BMI Calculated 32.56 06/19/2018 [facility] Weight 100 06/19/2018 [facility] Systolic (mm Hg) 116 06/17/2018 [facility] Diastolic (mm Hg) 59 06/17/2018 [facility] Respitory Rate 18 06/17/2018 [facility] Systolic (mm Hg) 118 06/17/2018 [facility] Diastolic (mm Hg) 57 06/17/2018 [facility] Respitory Rate 23 06/17/2018 [facility] Systolic (mm Hg) 119 06/17/2018 [facility] Diastolic (mm Hg) 66 06/17/2018 [facility] Respitory Rate 31 06/17/2018 [facility] Temperature Oral (F) 97.2 F 06/17/2018 [facility] BMI Calculated 32.56 06/17/2018 [facility] Height 175.26 cm 06/17/2018 [facility] Weight 100 06/17/2018 [facility] Systolic (mm Hg) 109 10/15/2017 [facility] Diastolic (mm Hg) 59 10/15/2017 [facility] Respitory Rate 15 10/15/2017 [facility] Systolic (mm Hg) 112 10/15/2017 [facility] Diastolic (mm Hg) 62 10/15/2017 [facility] Respitory Rate 17 10/15/2017 [facility] Systolic (mm Hg) 109 10/15/2017 [facility] Diastolic (mm Hg) 56 10/15/2017 [facility] Respitory Rate 14 10/15/2017 [facility] Temperature Oral (F) 97.4 F 10/15/2017 [facility] BMI Calculated 31.82 10/15/2017 [facility] Weight 97.727 10/15/2017 [facility] Height 175.26 cm 10/15/2017 [facility] Weight 98.182 10/26/2016 [facility] Height 175.26 cm 10/26/2016 [facility] BMI Calculated 31.96 10/26/2016 [facility] Height 175.26 cm 01/26/2016 [facility] BMI Calculated 30.34 01/26/2016 [facility] Weight 93.182 01/26/2016 [facility] Systolic (mm Hg) 93 06/19/2015 [facility] Diastolic (mm Hg) 52 06/19/2015 [facility] Systolic (mm Hg) 93 06/19/2015 [facility] Diastolic (mm Hg) 53 06/19/2015 [facility] Systolic (mm Hg) 92 06/19/2015 [facility] Diastolic (mm Hg) 55 06/19/2015 [facility] Temperature Oral (F) 97.3 F 06/19/2015 [facility] Temperature Oral (F) 98.1 F 06/19/2015 [facility] Respitory Rate 16 06/19/2015 [facility] Temperature Oral (F) 97.5 F 06/19/2015 [facility] Respitory Rate 18 06/19/2015 [facility] Respitory Rate 20 06/19/2015 [facility] Weight 91.364 06/18/2015 [facility] BMI Calculated 30.11 06/14/2015 [facility] Weight 92.472 06/14/2015 [facility] Height 175.26 cm 06/14/2015 [facility] Systolic (mm Hg) 118 05/20/2015 [facility] Diastolic (mm Hg) 64 05/20/2015 [facility] Respitory Rate 18 05/20/2015 [facility] Systolic (mm Hg) 99 05/20/2015 [facility] Diastolic (mm Hg) 45 05/20/2015 [facility] Respitory Rate 22 05/20/2015 [facility] Respitory Rate 21 05/20/2015 [facility] Systolic (mm Hg) 99 05/20/2015 [facility] Diastolic (mm Hg) 45 05/20/2015 [facility] Temperature Oral (F) 98.5 F 05/20/2015 [facility] Temperature Oral (F) 98.2 F 05/20/2015 [facility] Temperature Oral (F) 98.6 F 05/20/2015 [facility] Weight 94.318 05/17/2015 [facility] BMI Calculated 30.71 05/17/2015 [facility] Height 175.26 cm 05/17/2015 [facility] Respitory Rate 35 03/02/2015 [facility] Respitory Rate 15 03/02/2015 [facility] Systolic (mm Hg) 82 03/02/2015 [facility] Diastolic (mm Hg) 45 03/02/2015 [facility] Systolic (mm Hg) 104 03/02/2015 [facility] Diastolic (mm Hg) 61 03/02/2015 [facility] Respitory Rate 20 03/02/2015 [facility] Systolic (mm Hg) 105 03/02/2015 [facility] Diastolic (mm Hg) 63 03/02/2015 [facility] Temperature Oral (F) 96.8 F 03/02/2015 [facility] Temperature Oral (F) 96.7 F 03/02/2015 [facility] Temperature Oral (F) 96.8 F 03/02/2015 [facility] Height 175.26 cm 02/26/2015 [facility] BMI Calculated 32.11 02/26/2015 [facility] Weight 98.636 02/26/2015 [facility] Height 175.26 cm 02/26/2015 [facility] Heart Rate 108 02/26/2015 [facility] Weight 100 02/26/2015 [facility] BMI Calculated 32.56 02/26/2015 [facility] Height 175.26 cm 02/26/2015 [facility] Heart Rate 123 02/26/2015 [facility] Encounters Location Location Encounter Encounter Reason Attending ADM DC Status Source Details Type Number For Provider Date Date Visit [facility] [id number] e-Donovan 02/26 03/02 [facility]2014 [facility] Inpatient [id number] e-Donovan 05/17 05/20 [facility] /2014 [facility] Inpatient [id number] e-Donovan 06/14 06/19 [facility] /2014 [facility] Outpatient [id number] e-Donovan 01/25 01/26 [facility] /2015 [facility] Outpatient [id number] [facility] 10/26 10/27 [facility] /2016 [facility] Outpatient [id number] e-Donovan 10/15 10/16 [facility] /2017 [facility] Outpatient [id number] e-Donovan 06/17 06/18 [facility] /2017 [facility] Inpatient [id number] e-Donovan 06/19 06/22 [facility] Outpatient [id number] e-Donovan 06/24 06/25 [facility] Out[facility] Diag [id number] e-Donovan 10/09 10/10 [id number] 12/11 12/11 [facility] [id number] [facility] 12/11 12/16 [facility] Procedures Procedure Code Date Perfomer Comments Source Ablation [id number] [facility] Hip replacement [id number] [facility] Open repair of inguinal [id number] [facility] hernia [facility], [facility] [place] Tonsillectomy [id number] [facility], [facility] Ablation<sup>1</sup> [id number] pt. has not [facility] had an Medical ablation in Center, the past [facility] Arthroscopy of knee with [id number] left knee [facility] lateral meniscus Medical repair<sup>2</sup> [facility], [facility] Cardiac catheterisation, [id number] [facility] heart [facility], [facility] Electrophysiologic [id number] [facility] evaluation of Medical cardioverter-defibrillat [facility], or lead and/or device [facility] Assessment and Plan Assessment and Plan Date Source Extracted from:Title: Progress Note * 06/22/2018 [facility] Author: Corrie Del Toro NP Date: 06/21/18 Basic Information Patient is a 63 year old caucasion man with a history of persistent A-fib RVR who has tried multiple medications in the past including Multaq and Rythmol without success; he has had multiple cardioversi ons as well. His last cardioversion was done on 06/17/2018 and was only successful for 1 day. Patient remains with recurrent atrial fibrillation with RVR. Patient has also tried Tikosyn in the past ~ 2014 but was discontinued due to VF. Patient has been maintained on beta kasandra and sotalol as an outpatient until approximately 2 weeks ago [place] and he has been in and out of a-fib since that time. Subjective Patient denies chest pain, palpitations, SOB, RODRIGUES, dizziness, lightheadedness and N/V. Health Status Allergies: Allergic Reactions (All) Severity Not Documented Demerol- No reactions were documented. Objective Meds Scheduled Meds (14):allopurinol, ascorbic acid (Vitamin C), aspirin, cholecalciferol (Vitamin D3 2000 intl units oral tablet), chondroitin/ glucosamine/methylsulfonylmethane (Glucosamine Chondroitin MSM Complex), diltiazem, folic acid, furosemide (Lasix 40 mg oral tablet), hydrochlorothiazide (Microzide), rivaroxaban (Xarelto), rosuvastatin (Crestor), sotalol, valsartan, vitamin E Unscheduled Meds: None PRN Meds (2):acetaminophen (Tylenol), albuterol-ipratropium One Time Meds: None Continuous Infusions: None Scheduled Meds (14): 06/20/18 9:00 allopurinol 300 mg PO Daily 06/20/18 9:00 ascorbic acid (Vitamin C) 500 mg PO Daily 06/20/18 9:00 aspirin 325 mg PO Daily 06/20/18 9:00 cholecalciferol (Vitamin D3 2000 intl units oral tablet) 2,000 IntlUnit PO Daily 06/20/18 9:00 chondroitin/glucosamine/methylsulfonylmethane (Glucosamine Chondroitin MSM Complex) 1,500 mg PO Daily 06/19/18 18:00 diltiazem 30 mg PO Q6H 06/20/18 9:00 folic acid 1 mg PO Daily 06/20/18 9:00 furosemide (Lasix 40 mg oral tablet) 40 mg PO Daily 06/20/18 9:00 hydrochlorothiazide (Microzide) 12.5 mg PO Daily 06/19/18 17:00 rivaroxaban (Xarelto) 20 mg PO QPM 06/19/18 21:00 rosuvastatin (Crestor) 10 mg PO Bedtime 06/20/18 9:00 sotalol 160 mg PO Q12H 06/20/18 9:00 valsartan 80 mg PO Daily 06/20/18 9:00 vitamin E 400 IntlUnit PO qWeek I&O Input/Output Record In Out Bal 06/21 24hr Tot 20 0 20 06/20 24hr Tot 266 300 -34 VS/Measurements Measurements from flowsheet : Measurements 06/20/2018 05:53 Weight Collection Method Measured Current Weight 98.778 kg Weight Difference Percent 2.9 % 06/19/2018 17:45 Heparin Dosing Weight (kg) 81.55 06/19/2018 17:45 Height 175.26 cm Height Collection Method Stated Weight 97.813 kg Dosing Weight Difference Percent -2.187 % Dosing Weight Collection Method Measured Body Surface Area 2.1822 m2 Body Mass Index 31.84 m2 06/19/2018 14:34 Heparin Dosing Weight (kg) 82.42 06/19/2018 14:31 Height 175.26 cm Height Collection Method Stated Weight 100 kg Dosing Weight Difference Percent 0 % Dosing Weight Collection Method Measured Body Surface Area 2.2064 m2 Body Mass Index 32.56 m2 , Vital Signs (last 24 hrs) Last Charted Temp Oral 98.1 DegF (JUN 21 09:30) Heart Rate Peripheral L 54bpm (JUN 21:) Resp Rate 20 BRMIN (JUN 21) SBP 132 mmHg (JUN 21:) DBP 72 mmHg (JUN 21) SpO2 98 % (JUN 21:) General: Alert and oriented, No acute distress, sitting in bed. HENT: Normocephalic, Normal hearing. Neck: Supple, No jugular venous distention. Respiratory: Lungs are clear to auscultation, Respirations are non-labored, Breath sounds are equal, Symmetrical chest wall expansion. Cardiovascular: Irregularly irregular rhythm, S1, S2, No edema. Gastrointestinal: Soft, Non-tender, Non-distended, Normal bowel sounds. Musculoskeletal Normal range of motion. Normal gait. Integumentary: Warm, Dry. Neurologic: Alert, Oriented, No focal deficits. Psychiatric: Cooperative, Appropriate mood and affect. Review / Management Results review: Labs (Last four charted values) WBC 5.2 (JUN 21) 7.1 (JUN 20) 6.8 (JUN 19) Hgb L 13.8 (JUN 21) L 13.3 (JUN 20) 14.8 ( JUN 19) Hct L 40.3 (JUN 21) L 39.0 (JUN 20) 44.8 ( JUN 19) Plt 182 (JUN 21) 190 (JUN 20) 203 (JUN 12) Na 140 (JUN 21) 143 (JUN 13) 142 (JUN 12) K 3.8 (JUN 21) 3.8 (JUN 20) 4.1 (JUN 19) CO2 24 (JUN 21) L 22 (JUN 20) L 23 (JUN 19) Cl 107 (JUN 21) 109 (DEC 13) 106 (JUN 12) Cr 1.17 (JUN 21) 1.07 (JUN 20) H 1.44 (JUN 12) BUN H 32 (JUN 21) H 33 (JUN 20) H 34 (JUN 12 ) Glucose Random H 117 (JUN 14) H 108 (JUN 13) H 103 ( JUN 12) Mg 2.1 (JUN 21) 2.2 (JUN 20) 2.1 (JUN 19) Phos H 4.8 (JUN 21) 4.0 (JUN 20) 4.4 (JUN 19 ) Ca 8.5 (JUN 21) L 8.4 (JUN 20) 9.2 (JUN 19 ) PT H 21.7 (JUN 21) H 15.4 (JUN 19) INR H 1.94 (JUN 21) H 1.24 (JUN 19) PTT H 40.0 (JUN 21) 32.9 (JUN 19) Troponin <0.02 (JUN 20) <0.02 (JUN 19) <0.02 ( JUN 19) CK MB 2.0 (JUN 20) 1.7 (JUN 19) 1.5 (JUN 19) Total CK 102 (JUN 20) 117 (JUN 12) 126 (JUN 12) . Lines and Tubes: Peripheral catheter: Site: right hand. ECG interpretation: Time 06/20/2018 11:43, A-fib with CVR, HR 90's, episodes of either NSVT or aberrancy. Condition: Stable. 06/20/2018 ECHO Conclusions 1) Left ventricle dilated with moderately reduced systolic function. 2) Estimated LVEF 35-40% 3) Right ventricle normal in size and systolic function. 4) Left atrium moderately dilated. 5) Moderate aortic regurgitation, mild mitral regurgitation, and mild tricuspid regurgitation. 6) Aortic root moderately dilated measuring 4.5cm in diameter. 7) No significant pericardial effusion. Impression and Plan Patient is a 63 year old caucasion man with a history of A-fib RVR who has tried multiple medications in the past including Multaq and Rythmol without success; he has had multiple cardioversions as well . Last cardioversion was done on 06/17/2018 was only successful for 1 day. Patient has now recurrent atrial fibrillation with RVR. Patient has also tried Tikosyn in the past ~2014 but was discontinue d due to VF. Patient has been maintained on beta kasandra and sotalol as an outpatient until approximately 2 weeks ago [place] and he has been in and out of a-fib since that time. 1. Recurrent atrial fibrillation with RVR - continue Sotalol 160 mg p.o. q.12 hours and diltiazem 30mg po QID - monitor renal function and electrolytes closely - CHADS2-VASc score is 3; continue Xarelto - keep potassium >/=4.0 and magnesium >/=2.0, TSH level is normal and is 1.820 - will get an EKG for today for comparison, EKG yesterday revealed QTc of 538, prolongation is due to RBBB - ECHO unchanged from previous, EF slightly better 35-40% 2. Chronic systolic heart failure, [place] Heart Association class II - echocardiogram has been ordered to re-evaluate ejection fraction pending results - per Dr. Joya the ejection fraction has improved to about 45 to 50 resulting in the LifeVest being discontinued many months ago - continue po lasix 40mg daily, Valsartan 80mg daily and Sotalol 160mg q12 hours - continue strict I&O's, daily weight and follow electrolytes 3. 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 Hypertension - BP is controlled on current medical management; adjust blood pressure medications as necessary 5. Hyperlipidemia - total cholesterol 107, triglycerides 240, HDL 34 and LDL 25 on Crestor; LFTs are normal, likely decrease dose or go QOD 6. History of non-Hodgkin lymphoma h/o CHOP and Cytoxan therapy - has been in remission for many years 7. History of snoring and questionable obstructive sleep apnea - would benefit from a sleep study but can be done as an outpatient, this could be contributing to recurrent A-fib 8. Left knee meniscus tear repair - stable 9. DVT prophylaxis - on xarelto Disposition: plan for outpatient [facility] on Sunday, June 24, 2018 at [facility], plan discussed in detail with the patient, his and with Dr. Joya who agrees with this plan of care. Addendum by Yasmani Joya MD on 09/08/2018 21:45 The patient was seen and examined with SOUND RECORDIST. Agree with note by SOUND RECORDIST. No dyspnea. Dix comfortable. LVEF 35 - 40% by echocardiography. Would discharge home and return on 06-24-2018 for repeat cardioversion as outpatient. Continue sotalol 160 mg bid. Extracted from:Title: History and Physical Author: Aida Dumont DNP Date: 06/19/18 History and Physical dictated. Dictation# [id number]. Aida Dumont DNP, CHILLING HOOD OPERATOR, ACNP-BC, ANP-BC, SOUND RECORDIST-C Department of Cardiology Pager# [phone] MSO# [id number] Extracted from:Title: Progress Note * 06/19/2015 [facility] Author: Adelita Diamond NP Date: 06/18/15 Impression and Plan This patient is a 60-year-old male well known to Dr. Joya's service, with a PMH of presumed ischemic cardiomyopathy (cardiomyopathy also most likely related to arrhythmia), atrial fibrillation, h/o hypertension, hyperlipidemia, h/o VT. Patient has had multiple hospitalizations for atrial fibrillation and tried multiple medications. He is admitted for recurrent atrial fibrillation. 1. Atrial fibrillation with controlled ventricular rate - patient has trialed Multaq, Rythmol with no continuous success. He has had multiple cardioversions which failed to sustain his sinus rhythm. He started on Tikosyn induction protocol last month and he had a V-fib episode. Tikosyn was discontinued. - CHADS2 score is 2 - patient has been on Metoprolol, which we will continue - Sotalol protocol: increased to 160 mg PO BID - continue Xarelto - converted to SR, HR 60's at 1400 - continue to monitor 12 lead ECG, QT interval 520 2. Chronic systolic heart failure, NYHA class II to III - appears to be fairly compensating and euvolemic - monitor BNP level, was 508 on 06/16/2015 - continue Lasix and Diovan - continue strict I's and O's and daily weight 3. Cardiomyopathy - presumed to be a combination of likely ischemic cardiomyopathy and arrhythmia related cardiomyopathy - stress test 02/2015 showed medium-sized moderate inferior non-transmural scar in the distribution of the right coronary artery and global hypokinesis with EF 25% (which is out of proportion of the size of the perfusion defect, suggesting cardiomyopathy in addition of the coronary artery disease. - repeat Echo done last month showed LVEF 30% - 35% - currently has a LifeVest - plan repeat Echo once his rhythm converts back to sinus rhythm. If his LVEF continues to be low, patient woiuld likely benefit from ICD implant. 4. Hypertension - BP appears to be fairly controlled, some episodes of asymptomatic hypotension noted - continue Diovan 80 mg PO daily - decreased Toprol XL to 25 mg PO BID for borderline hypotension - continue to monitor blood pressure and titrate BP medication as needed 5. History of hyperlipidemia - continue statin therapy - LFT's wnl 6. History of Palpitations - h/o palpitations secondary to ventricular ectopy. Patient had an EP study done in 02/2007 which showed no inducible sustained ventricular tachycardia, but nonsustained polymorphic ventricular tachycardia was inducible - denies palpitations overnight, currently in atrial fibrillation with controlled ventricular rate - continue BB - continue to monitor electrolytes and replete as needed - replete electrolytes as needed, goal K > 4 and magnesium > 2 7. History of non-Hodgkin lymphoma - was diagnosed about 16 years ago - s/p CHOP and Cytoxan therapy, currently in remission 8. History of snoring and questionable obstructive sleep apnea with mild obesity - will likely benefit from an outpatient sleep study, especially with his recurrent atrial fibrillation and h/o CAD and cardiomyopathy 9. Cough - per patient report he started coughing about 5 days ago, consider upper respiratory tract infection secondary to viral etiology - chest x-ray showed slightly increased right-sided pleural effusion with underlying subsegmental atelectasis but no visible pneumonia and significantly decreased left-sided pleural effusion with improved expansion of the left lung. - Afebrile - follow sputum culture, sputum gram stain negative - continue Mucinex, cough has improved - check repeat chest XR 10. Chronic kidney disease stage II - Creatinine 1.07, appears to be fairly stable - avoid nephrotoxins. - continue to monitor 11. GI and DVT prophylaxis - continue Protonix - continue Xarelto 12. Disposition - continue inpatient care/observation - continue Sotalol protocol The plan will be discussed with the patient, RN and attending java project manager, Dr. Joya. Adelita Diamond APRN, ACNP- Department of Cardiology MSO#[id number] Pager#[phone] Extracted from:Title: Clinical Document 05/20/2015 [facility] Author: Rosalva Merida Date: 05/17/15 HISTORY AND PHYSICAL PATIENT NAME: Lina Carranza ADMISSION DATE: 05/17/2015 ATTENDING PHYSICIAN: Dr. Yasmani Joya SERVICE: Cardiology CHIEF COMPLAINT: Atrial fibrillation HISTORY OF PRESENT ILLNESS: 59 year-old male with PMHX significant for non-hodgkins Lymphoma s/p CHOP and cyotoxan tx now in remission, Chronic systolic heart failure NYHA Class II-III, EF 30-35%, Atrial fibrillation, hy pertension, hyperlipidemia, chronic kidney disease stage II admitted by Dr. Joya for Tikosyn therapy for atrial fibrillation. Of note, patient has been electrically cardioverted multiple times without s uccess and has tried pharmacologic therapy with Multaq and Rhythmol without success. At present patient endorses occasional palpitations, the last of which occured on the evening of 05/16/15, occasional dyspnea with exertion and mild BLLE edema. He denies chest pain, nausea, vomiting, or weakness. PAST MEDICAL HISTORY: 1. Non-Hodgkins Lymphoma 2. Chronic systolic Heart Failure NYHA Class II-III 3. Atrial Fibrillation with rapid ventricular rate 4. Hypertension 5. Hyperlipidemia 6. Chronic kidney disease Stage II 7. History of palpitations with ventricular ectopy s/p EP study 02/2007 that demonstrated no inducible sustained VT 8. Snoring, questionable obstructive sleep apnea 9. Psoriasis PAST SURGICAL HISTORY: 1. Left inguinal hernai repair 1999 2. Left hip replacement 2012 3. Right hip replacement 2013 FAMILY HISTORY: Mother at 40 with congestive heart failure. Father at 70, no known heart disease, only hx of multiple sclerosis. Patient has 5 sisters, one of whom has , the suyapa son is unknown, as is the medical history of the surviving sisters SOCIAL HISTORY: Pt endorses occasional consumption of wine 3-4 glasses per week. A remote history of smoking, quit 40 years ago, and denies any illegal or prescription drug abuse. Pt is marrie d and lives with his and he has one daughter ALLERGIES: Demerol HOME MEDICATIONS: ascorbic acid (Vitamin C) 500 mg PO Daily aspirin (aspirin 325 mg tablet) 325 mg PO Daily cholecalciferol (Vitamin D3 2000 intl units oral tablet) 1,000 unit PO Daily propafenone 150mg [id number] PO folic acid 1 mg PO Daily furosemide (furosemide 40 mg oral tablet) 40 mg PO Every Other Day glucosamine 1,500 mg PO Daily metoprolol (Toprol-XL 25 mg oral tablet, extended release) 75 mg PO Daily multivitamin with minerals (Centrum) PO Daily rivaroxaban (Xarelto) 20 mg PO QPM rosuvastatin (Crestor) 10 mg PO Bedtime valsartan (Diovan) 320 mg PO Daily vitamin E 400 IntlUnit PO Daily Labs: Sodium Lvl 142 Potassium Lvl 3.6 Chloride Lvl 104 CO2 28 AGAP 13.6 Glucose Lvl 182 H Creatinine Lvl 1.30 BUN 33 H B/C Ratio 25 Total Protein 6.6 Albumin Lvl 3.4 L Globulin 3.2 A/G Ratio 1.1 Calcium Lvl 9.2 ALT 26 AST 25 Alk Phos 61 Bili Total 0.5 eGFR 60 Magnesium Lvl 2.1 PTT 33.6 WBC 5.4 RBC 3.96 L Hgb 12.7 L Hct 40.0 L MCV 101.1 H MCH 32.2 H MCHC 31.8 L RDW 15.4 H Platelet 182 MPV 9.7 Segs 76.5 H Monocytes 11.6 Lymphocytes 8.3 L Eosinophils 2.9 Basophils 0.7 Segs-Bands # 4.1 Lymphocytes # 0.4 L Monocytes # 0.6 Eosinophils # 0.2 Macrocyte 1+ EKG: Atrial fibrillation, rate controlled REVIEW OF SYSTEMS: Constitutional: Denies fever, chills, night sweats, and weight changes. Eyes: Denies acute blurry vision, itching. HEENT: Denies recent trauma, GRIDER, nasal drainage/epistaxis, sore throat. Resp: Denies cough, occasional exertional dyspnea CV: Denies chest pain/pressure, orthopnea, PND, or claudication, endorses ocasional exertional RODRIGUES, and palpitations, + LE edema GI: Denies nausea, vomiting, diarrhea, constipation, reflux sx, hematemesis, odynophagia, dysphagia, bloating, melena, hematochezia : Denies dysuria, urgency, or hematuria. MSK: Denies joint/extremity deformity, joint swelling/stiffness. Neuro: Denies LOC/syncope, focal weakness, seizure, tremor. Integ: Denies rashes, open lesions. Endo: Denies polydypsia, polyphagia, heat or cold intolerance. Hemo/Lymph: Denies increased bleeding or bruising, denies swollen lymph nodes Psych: Denies increased anxiety, agitation, insomnia, mood swings PHYSICAL EXAM: Vital signs: BP 108/58, HR 80-88, RR 20, Spo2 99% RA General/Constitutional: Awake, alert, not in distress. Calm and cooperative. HEENT: Normocephalic, atraumatic. Normal external appearance of nares, no drainage, moist mucosa. Eyes: Normal external appearance of lids/lashes. PERRLA, conjunctiva/sclera clear. Neck: Supple, trachea midline. Heart: Irregulalry irregular rate - 80s, atiral fibrillation. Norm S1/S2, no S3 /S4. No murmurs. No JVD appreciated. Trace BLLE edema Pulses: Distal pulses 2+ bilaterally. Lungs: CTAB, no Wheeze/Rales/Rhonchi. No increased work of breathing, no accessory muscle use, comfortable on RA. Abd: Normoactive bowel sounds. Soft, nondistended, nontender. No guarding, no rebound tenderness. MSK/Extremities: Strength intact. No LE edema Skin: Psoriasis noted to right elbow, skin intact Neuro: Mental status intact, speech clear. CN II-XII grossly intact. No focal deficits appreciated. GCS 15/15. PERRLA. GOMEZ equal 5/5. IMPRESSION AND PLAN: 59 year-old male with PMHX significant for non-hodgkins Lymphoma s/p CHOP and cyotoxan tx now in remission, Chronic systolic heart failure NYHA Class II-III, EF 30-35%, Atrial fibrillation, hy pertension, hyperlipidemia, chronic kidney disease stage II admitted [address] Dr. Joya for Tikosyn therapy for atrial fibrillation. Of note, patient has been electrically cardioverted multiple times without s uccess and has tried pharmacologic therapy with Multaq and Rhythmol without success. 1. Atrial fibrillation - rate controlled - Tikosyn 250mcg Q12H - Check EKG, monitor Qtc - On Xarelto for anticoagulation - CHADS score 2 2. Chronic Systolic Heart Failure, NYHA Class II-III, EF 30-35% - Pt appears clinically compensated - Resume diovan, lasix - Monitor strict I&O, Daily weights - Pt has Life Vest, will wear upon DC to home 3. Coronary artery disease - no chest pain - On BB, Statin, and aspirin - Lexiscan stress test 05/18/15 4. Hypertension - Appears fairly controlled - continue BB, Diovan - Monitor and titrate as needed for control 4. Hyperlipidemia - resume statin - check lipid and liver panels 5. Chronic kidney disease Stage II - Scr 1.3 - avoid nephrotoxins - adjust Tikosyn for GFR 6. Hx of non-Hodgkins Lymphoma - stable 7. GI/DVT - protonix/xarelto Disposition: Initiate tikosyn, monitor Qtc, Lexiscan stress tomorrow (05/18/15) pt likely to remain hospitilized until 05/20/15 Pt seen and evalauted with Dr. Joya who agrees with assessment and plan of care Rosalva Merida APRN, MSN, ACNP-BC Department of Cardiology Pager# [phone] MSO# [id number] Extracted from:Title: Discharge Summary 03/02/2015 [facility] Author: Aida Dumont SOUND RECORDIST Date: 03/02/15 DC summary dictated. Dictation# [id number]. Aida Dumont APRN, MSN, ACNP-BC, ANP-BC, SOUND RECORDIST-C Department of Cardiology Pager# [phone] MSO# [id number] Extracted from:Title: Cardiology Progress Note * Author: Aida Dumont SOUND RECORDIST Date: 03/01/15 Impression and Plan Impression: Shortness of Breath Acute on Chronic diastolic heart failure Atrial fibrillation Chronic kidney disease stage II Volume Overload and Persisting pulmonary edema and bilateral pleural effusions History of palpitations with ventricular ectopies S/P EP study 02/2007 showed no inducible sustained ventricular tachycardia Hypertension Hyperlipidemia Chronic diastolic heart failure Known Hodgkin's lymphoma status post CHOP and Cytoxan therapy Recent upper respiratory tract infection Snoring, questionable LIZ PLAN: 1. Shortness of breath: - With history of chronic diastolic heart failure, elevated proBNP - Dyspnea could be due to a combination of diastolic dysfunction, atrial fibrillation with increased heart rate and also the recent URTI - Chest X-ray on admission showed persisting pulmonary edema and bilateral pleural effusions - Recieved IV Lasix, now on oral lasix. Cr is 1.5 today - Continue strict I/O, daily weight - Trend ProBNP, TTE 02/27/2015 LVEF is 35%, Dr. Joya reported that previous clinic echos showed higher LVEF - Drop on LVEF could be likely secondary to arrhythmia, though ischemic etiology need to be R/O. Scheduled for Adenosine stress test for this AM - Will need life vest on discharge, life vest rep informed 2. Atrial fibrillation: - Patient with history of atrial fibrillation, currently still with A. Fib CVR. Less episodes of A. Fib with SVR, had some episodes of A. Fib with RVR asymptomatic, with exertion - Continue beta blockers and propafenone 150 mg PO Q8H. Repeat EKG today showed QRS interval 142 ms, will not increase propafenone dose. Daily EKGs - CHADS2 score 2, continue Xarelto - Still a. fib, plan for possible DCCV today afternoon 3. Hypertension: - BP fairly controlled - Continue same mgt, will moniotr BP carefully and adjust BP medication as deemed necessary 4. Hyerlipidemia: - Continue Statin, LFTs unremarkable 5.History of palpitations with ventricular ectopies: - S/P EP study 02/2007 showed no inducible sustained ventricular tachycardia, but non-sustained polymorphic ventricular tachycardia was inducible - Continue beta blockers - No further VTs noted in the telemtery currently - Keep K level > 4.0 and Mg level > 2.0 6. Known Hodgkin's lymphoma: - Status post CHOP and Cytoxan therapy, on Remission 7. Recent upper respiratory tract infection: - Cough has been improved, presented to Dr. Joya's office on 02/24, sputum culture was obtained, pending results - On cefuroxime x 10 days total (will be completed 03/01/2015) 8. Snoring, questionable LIZ: - Will likely benefit from sleep study as outpatient. 9. GI/DVT Prophlaxis: - On PPI/On Xarelto 10. Disposition: - Continue inpt stay. Continue diuresis and monitor clinical response. Further recommnedation is to follow. Case discussed with patient and primary RN. Discussed with Dr. Joya, agree with above. Aida Dumont, MSN, CHILLING HOOD OPERATOR, ACNP-BC, ANP-BC, SOUND RECORDIST-C Department of Cardiology Pager# [phone] MSO# [id number] The patient was seen and examined by me with the resident/SOUND RECORDIST/PA and I agree with the History/Exam documented. Extracted from:Title: Clinical Document Author: Jai Powell NP Date: 02/26/15 History and physical dictated. Dictation no is [id number] Plan of Care No Data Provided for This Section Social History Social History Date Source Social History TypeResponse 02/27/2015 [facility] Substance Abuse Use: None. Alcohol Current, Type Wine. Frequency: 3-5 times per week. Previous treatment: None. Alcohol use interferes with work or home: No. Drinks more than intended: No. Others hurt by drinking: No. Ready to change: No. Household alcohol concerns : No. Smoking Status Former smoker; Type: Cigarettes; Exposure to Tobacco Smoke None; Cigarette Smoking Last 365 Days No; Reg Smoking Cessation Counseling No entered on: 12/11/18 Social History TypeResponse 02/27/2015 [facility] Substance Abuse Use: None. Alcohol Current, Type Wine. Frequency: 3-5 times per week. Previous treatment: None. Alcohol use interferes with work or home: No. Drinks more than intended: No. Others hurt by drinking: No. Ready to change: No. Household alcohol concerns : No. Smoking Status Former smoker; Type: Cigarettes; Exposure to Tobacco Smoke None; Cigarette Smoking Last 365 Days No; Reg Smoking Cessation Counseling No entered on: 06/24/18 Family History No Data Provided for This Section Advance Directives No Data Provided for This Section Functional Status No Data Provided for This Section
--- OUTSIDE RECORDS SUMMARY | 2019-03-12 16:30 | XMS REPORT | Summary of Care ---
:1955 Author Organization [facility] Address [address] [place], [place] [address]- Encounter HQ Encntr_alias(FIN) [id number] Date(s): 06/17/18 - 06/17/[address] [address]- [place] Encounter Diagnosis Unspecified atrial fibrillation (Final) - 06/27/18 Unspecified systolic (congestive) heart failure (Final) - Discharge Disposition: Home or Self Care Attending Physician: Yasmani Joya MD Referring Physician: Yasmani Joya MD Vital Signs Most recent to oldest 1 2 3 [Reference Range]: Height 175.26 cm (06/17/18 11:56 AM) Temperature Oral [96.4-99.1 97.2 DegF DegF] (06/17/18 12:30 PM) Blood Pressure 116/59 mmHg 118/57 mmHg 119/66 mmHg [90-140/60-90 mmHg] (06/17/18 3:30 PM) (06/17/18 3:15 PM) (06/17/18 3:05 PM) Respiratory Rate [14-20 18 BRMIN 23 BRMIN 31 BRMIN BRMIN] (06/17/18 3:30 PM) *HI* *HI* (06/17/18 3:15 PM) (06/17/18 3:05 PM) Weight 100 kg (06/17/18 11:56 AM) Body Mass Index 32.56 m2 (06/17/18 11:56 AM) Problem List Condition Effective Dates Status Health Status Informant Afib(Confirmed) Resolved HTN (hypertension)(Confirmed) Resolved Hypercholesteremia(Confirmed) Resolved Non Hodgkin's lymphoma(Confirmed)1 Resolved Psoriasis(Confirmed) Resolved Ventricular tachycardia(Confirmed) Resolved 36670 Allergies, Adverse Reactions, Alerts Substance Reaction Severity Status Demerol Active Medications allopurinol 300 mg oral tablet 300 mg=1 tab, PO, Daily, 0 Refill(s) Start Date: 06/17/18 Status: OrderedCrestor 10 mg oral tablet 10 mg=1 tab, PO, Daily, 0 Refill(s) Start Date: 06/17/18 Status: OrderedVersed 3 mg, Route: IVP, ONCE, Dosing Weight 100, kg, Start date: 06/17/18 15:52:00 WOOL CLEANER , Stop date: 06/17/18 15:52:00 WOOL CLEANER Start Date: 06/17/18 Stop Date: 06/21/18 Status: Discontinued Results Most recent to oldest [Reference Range]: 1 Neutrophils # [1.5-8.1 K/CMM] 4.4 K/CMM (06/17/18 12:50 PM) Lymphocytes # [1.0-5.5 K/CMM] 0.6 K/CMM *LOW* (06/17/18 12:50 PM) Monocytes # [0.0-0.8 K/CMM] 0.8 K/CMM (06/17/18 12:50 PM) Eosinophils # [0.0-0.5 K/CMM] 0.3 K/CMM (06/17/18 12:50 PM) eGFR 63 mL/min/1.73m2 1 *NA* (06/17/18 12:50 PM) AGAP [10.0-20.0 mEq/L] 16.4 mEq/L (06/17/18 12:50 PM) Basophils [0.0-1.0 %] 0.8 % (06/17/18 12:50 PM) BUN [7-22 mg/dL] 38 mg/dL *HI* (06/17/18 12:50 PM) Calcium Lvl [8.5-10.5 mg/dL] 9.2 mg/dL (06/17/18 12:50 PM) Chloride Lvl [95-109 mEq/L] 107 mEq/L (06/17/18 12:50 PM) CO2 [24-32 mEq/L] 24 mEq/L (06/17/18 12:50 PM) Creatinine Lvl [0.50-1.40 mg/dL] 1.21 mg/dL (06/17/18 12:50 PM) Eosinophils [0.0-4.0 %] 4.5 % *HI* (06/17/18 12:50 PM) Glucose Lvl [70-99 mg/dL] 108 mg/dL *HI* (06/17/18 12:50 PM) Hct [42.0-54.0 %] 42.8 % (06/17/18 12:50 PM) Hgb [14.0-18.0 g/dL] 14.2 g/dL (06/17/18 12:50 PM) INR [0.85-1.17] 1.53 *HI* (06/17/18 12:50 PM) Potassium Lvl [3.5-5.1 mEq/L] 4.4 mEq/L (06/17/18 12:50 PM) Lymphocytes [20.0-40.0 %] 10.5 % *LOW* (06/17/18 12:50 PM) MCH [27.0-31.0 pg] 33.0 pg *HI* (06/17/18 12:50 PM) MCHC [32.0-36.0 g/dL] 33.3 g/dL (06/17/18 12:50 PM) MCV [80.0-94.0 fL] 99.0 fL *HI* (06/17/18 12:50 PM) Monocytes [2.0-12.0 %] 12.6 % *HI* (06/17/18 12:50 PM) MPV [7.4-10.4 fL] 9.6 fL (06/17/18 12:50 PM) Sodium Lvl [135-145 mEq/L] 143 mEq/L (06/17/18 12:50 PM) Platelet [133-450 K/CMM] 187 K/CMM (06/17/18 12:50 PM) Segs [45.0-75.0 %] 71.6 % (06/17/18 12:50 PM) PT [12.0-14.7 seconds] 18.1 seconds *HI* (06/17/18 12:50 PM) PTT [22.9-35.8 seconds] 35.2 seconds (06/17/18 12:50 PM) RBC [4.70-6.10 M/CMM] 4.32 M/CMM *LOW* (06/17/18 12:50 PM) RDW [11.5-14.5 %] 14.0 % (06/17/18 12:50 PM) WBC [3.7-10.4 K/CMM] 6.1 K/CMM (06/17/18 12:50 PM) 1Result Comment: The eGFR is calculated using the CKD-EPI formula. In most young , healthy individualsthe eGFR will be >90 mL/min/1.73m2. The eGFR declines with age. An eGFR of 60-89 may be normal insome populations, particularly the elderly, for whom the CKD-EPI formula has not been extensively validated. Use of the eGFR is not recommended in the following populations: Individuals with unstable creatinine concentrations, including patients and those with serious co-morbid conditions. Patients with extremes in muscle mass or diet. The data above are obtained from the National Kidney Disease Education Program ( NKDEP) which additionally recommends that when the eGFR is used in patients with extremes of body mass index for purposesof drug dosing, the eGFR should be multiplied by the estimated BMI. Immunizations No data available for this section Procedures Procedure Date Related Diagnosis Body Site Status Ablation1 Completed Arthroscopy of knee with lateral meniscus Completed repair2 Cardiac catheterisation, left heart Completed Electrophysiologic evaluation of Completed cardioverter-defibrillator lead and/or device Hip replacement Completed Open repair of inguinal hernia Completed Tonsillectomy Completed 1pt. has not had an ablation in the [id number] knee Social History Social History Type Response Substance Abuse Use: None. Alcohol Current, Type Wine. Frequency: 3-5 times per week. Previous treatment: None. Alcohol use interferes with work or home: No. Drinks more than intended: No. Others hurt by drinking: No. Ready to change: No. Household alcohol concerns: No. Smoking Status Former smoker; Type: Cigarettes; Exposure to Tobacco Smoke None ; Cigarette Smoking Last 365 Days No; Reg Smoking Cessation Counseling No entered on: 12/11/18 Assessment and Plan No data available for this section
--- OUTSIDE RECORDS SUMMARY | 2019-03-12 16:31 | XMS REPORT | Summary of Care ---
:1955 Author Organization [facility] Address [address] [place] [id number]- Encounter HQ Encntr_alias(FIN) [id number] Date(s): 12/11/18 - 12/11/[address] Professional Services provided by [facility] [place] [address]- Attending Physician: Yasmani Joya MD Admitting Physician: Yasmani Joya MD Vital Signs No data available for this section Problem List Condition Effective Dates Status Health Status Informant Afib(Confirmed) Resolved HTN (hypertension)(Confirmed) Resolved Hypercholesteremia(Confirmed) Resolved Non Hodgkin's lymphoma(Confirmed)1 Resolved Psoriasis(Confirmed) Resolved Ventricular tachycardia(Confirmed) Resolved 52892 Allergies, Adverse Reactions, Alerts Substance Reaction Severity Status Demerol Active Medications No data available for this section Results No data available for this section Immunizations No data available for this section Procedures Procedure Date Related Diagnosis Body Site Status Ablation1 Completed Arthroscopy of knee with lateral meniscus Completed repair2 Cardiac catheterisation, left heart Completed Electrophysiologic evaluation of Completed cardioverter-defibrillator lead and/or device Hip replacement Completed Open repair of inguinal hernia Completed Tonsillectomy Completed 1pt. has not had an ablation in the [id number] knee Social History Social History Type Response [...]
--- OUTSIDE RECORDS SUMMARY | 2019-03-12 16:31 | XMS REPORT | Summary of Care ---
:1955 Author Organization [facility] Address [address] [place], [place] [address]- Encounter HQ Encntr_alias(FIN) [id number] Date(s): 10/09/18 - 10/09/18 [facility] [address] [place] [address]- [phone] Discharge Disposition: Home or Self Care Attending Physician: Yasmani Joya MD Referring Physician: Yasmani Joya MD Vital Signs No data available for this section Problem List Condition Effective Dates Status Health Status Informant Afib(Confirmed) Resolved HTN (hypertension)(Confirmed) Resolved Hypercholesteremia(Confirmed) Resolved Non Hodgkin's lymphoma(Confirmed)1 Resolved Psoriasis(Confirmed) Resolved Ventricular tachycardia(Confirmed) Resolved 14363 Allergies, Adverse Reactions, Alerts Substance Reaction Severity [...] has not had an ablation in the [id number] knee Social History Social History Type Response [...] Smoking Cessation Counseling No entered on: 06/24/18 Assessment and Plan No data available for this section
--- OUTSIDE RECORDS SUMMARY | 2019-03-12 16:31 | XMS REPORT | Summary of Care ---
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) - Nonrheumatic aortic (valve) insufficiency (Final) - Other specified anemias (Final) - Essential (primary) hypertension (Final) - Hyperlipidemia, unspecified (Final) - Personal history of non-Hodgkin lymphomas (Final) - Discharge Disposition: Home or Self Care Attending Physician: Yasmani Joya MD Referring Physician: Yasmani Joya MD Vital Signs Most recent to oldest 1 2 3 [Reference Range]: Height 175.26 cm (06/24/18 12:51 PM) Blood Pressure 113/61 mmHg 120/64 mmHg 125/62 mmHg [90-140/60-90 mmHg] (06/24/18 4:25 PM) (06/24/18 4:20 PM) (06/24/18 4:15 PM) Respiratory Rate [14-20 19 BRMIN 19 BRMIN 18 BRMIN BRMIN] (06/24/18 4:35 PM) (06/24/18 4:30 PM) (06/24/18 4:25 PM) Weight 97.727 kg (06/24/18 12:51 PM) Body Mass Index 31.82 m2 (06/24/18 12:51 PM) Problem List Condition Effective Dates Status Health Status Informant Afib(Confirmed) Resolved HTN (hypertension)(Confirmed) Resolved Hypercholesteremia(Confirmed) Resolved Non Hodgkin's lymphoma(Confirmed)1 Resolved Psoriasis(Confirmed) Resolved Ventricular tachycardia(Confirmed) Resolved 07706 Allergies, Adverse Reactions, Alerts Substance Reaction Severity Status Demerol Active Medications No Known Medications Results Most recent to oldest [Reference Range]: 1 Neutrophils # [1.5-8.1 K/CMM] 3.7 K/CMM (06/24/18 2:20 PM) Lymphocytes # [1.0-5.5 K/CMM] 0.7 K/CMM *LOW* (06/24/18 2:20 PM) Monocytes # [0.0-0.8 K/CMM] 0.7 K/CMM (06/24/18 2:20 PM) Eosinophils # [0.0-0.5 K/CMM] 0.1 K/CMM (06/24/18 2:20 PM) eGFR 55 mL/min/1.73m2 1 *NA* (06/24/18 2:20 PM) AGAP [10.0-20.0 mEq/L] 15.0 mEq/L (06/24/18 2:20 PM) Basophils [0.0-1.0 %] 0.6 % (06/24/18 2:20 PM) BUN [7-22 mg/dL] 47 mg/dL *HI* (06/24/18 2:20 PM) Calcium Lvl [8.5-10.5 mg/dL] 9.4 mg/dL (06/24/18 2:20 PM) Chloride Lvl [95-109 mEq/L] 107 mEq/L (06/24/18 2:20 PM) CO2 [24-32 mEq/L] 26 mEq/L (06/24/18 2:20 PM) Creatinine Lvl [0.50-1.40 mg/dL] 1.35 mg/dL (06/24/18 2:20 PM) Eosinophils [0.0-4.0 %] 2.6 % (06/24/18 2:20 PM) Glucose Lvl [70-99 mg/dL] 115 mg/dL *HI* (06/24/18 2:20 PM) Hct [42.0-54.0 %] 40.4 % *LOW* (06/24/18 2:20 PM) Hgb [14.0-18.0 g/dL] 13.4 g/dL *LOW* (06/24/18 2:20 PM) INR [0.85-1.17] 1.59 *HI* (06/24/18 2:20 PM) Potassium Lvl [3.5-5.1 mEq/L] 4.0 mEq/L (06/24/18 2:20 PM) Lymphocytes [20.0-40.0 %] 12.8 % *LOW* (06/24/18 2:20 PM) MCH [27.0-31.0 pg] 32.9 pg *HI* (06/24/18 2:20 PM) MCHC [32.0-36.0 g/dL] 33.1 g/dL (06/24/18 2:20 PM) MCV [80.0-94.0 fL] 99.3 fL *HI* (06/24/18 2:20 PM) Magnesium Lvl [1.8-2.4 mg/dL] 2.3 mg/dL (06/24/18 2:20 PM) Monocytes [2.0-12.0 %] 13.9 % *HI* (06/24/18 2:20 PM) MPV [7.4-10.4 fL] 9.2 fL (06/24/18 2:20 PM) Sodium Lvl [135-145 mEq/L] 144 mEq/L (06/24/18 2:20 PM) Platelet [133-450 K/CMM] 223 K/CMM (06/24/18 2:20 PM) Segs [45.0-75.0 %] 70.1 % (06/24/18 2:20 PM) PT [12.0-14.7 seconds] 18.6 seconds *HI* (06/24/18 2:20 PM) PTT [22.9-35.8 seconds] 35.5 seconds (06/24/18 2:20 PM) RBC [4.70-6.10 M/CMM] 4.07 M/CMM *LOW* (06/24/18 2:20 PM) RDW [11.5-14.5 %] 13.8 % (06/24/18 2:20 PM) WBC [3.7-10.4 K/CMM] 5.3 K/CMM (06/24/18 2:20 PM) 1Result Comment: The eGFR is calculated [...] has not had an ablation in the [id number] knee Social History Social History Type Response [...]
--- OUTSIDE RECORDS SUMMARY | 2019-03-12 16:31 | XMS REPORT | Summary of Care ---
:1955 Author Organization [facility] Address [address] [place] [id number]- Encounter HQ Encntr_michaelle(FIN) [phone] Date(s): 06/19/18 - 06/21/[address] Professional Services provided by [facility] [place] [address]- Encounter Diagnosis Persistent atrial fibrillation (Final) - 06/27/18 Chronic systolic (congestive) heart failure (Final) - Hypertensive heart and chronic kidney disease with heart failure and stage 1 through stage 4 chronickidney disease, or unspecified chronic kidney disease ( Final) - 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 (Final) - Chronic kidney disease, stage 2 (mild) (Final) - Abnormal coagulation profile (Final) - Ischemic cardiomyopathy (Final) - Hyperlipidemia, unspecified (Final) - Personal history of nicotine dependence (Final) - Discharge Disposition: Home or Self Care Attending Physician: Yasmani Joya MD Admitting Physician: Yasmani Joya MD Vital Signs Most recent to oldest 1 2 3 [Reference Range]: Height 175.26 cm 175.26 cm (06/19/18 5:45 PM) (06/19/18 2:31 PM) Current Weight 97.926 kg 98.778 kg (06/21/18 4:58 AM) (06/20/18 5:53 AM) Temperature Oral [96.4-99.1 98 DegF 1 97.6 DegF 97.8 DegF DegF] (06/21/18 6:18 PM) (06/21/18 3:47 PM) (06/21/18 1:02 PM) Blood Pressure [90-140/60-90 120/78 mmHg 113/65 mmHg 113/73 mmHg mmHg] (06/21/18 6:18 PM) (06/21/18 3:47 PM) (06/21/18 1:02 PM) Respiratory Rate [14-20 18 BRMIN 20 BRMIN 20 BRMIN BRMIN] (06/21/18 6:18 PM) (06/21/18 3:47 PM) (06/21/18 1:02 PM) Peripheral Pulse Rate 58 bpm 55 bpm 65 bpm [60-100 bpm] *LOW* *LOW* (06/21/18 1:02 PM) (06/21/18 6:18 PM) (06/21/18 3:47 PM) Weight 97.813 kg 100 kg (06/19/18 5:45 PM) (06/19/18 2:31 PM) Body Mass Index 31.84 m2 32.56 m2 (06/19/18 5:45 PM) (06/19/18 2:31 PM) 1Result Comment: dc VS Problem List Condition Effective Dates Status Health Status Informant Afib(Confirmed) Resolved HTN (hypertension)(Confirmed) Resolved Hypercholesteremia(Confirmed) Resolved Non Hodgkin's lymphoma(Confirmed)1 Resolved Psoriasis(Confirmed) Resolved Ventricular tachycardia(Confirmed) Resolved 73407 Allergies, Adverse Reactions, Alerts Substance Reaction Severity Status Demerol Active Medications albuterol-ipratropium 3 mL, Route: NEB, Drug Form: SOLN, Dosing Weight 100, kg, Q6H, PRN Other -See Comment, Start date: 06/19/18 15:44:00 DRY KILN BURNER, Duration: 30 day, Stop date: 15:43:00 DRY KILN BURNER, shorthenss of breath Notes: (Same as: Duoneb) Start Date: 06/19/18 Stop Date: 06/21/18 Status: Discontinuedallopurinol 300 mg, 1 tab, Route: PO, Drug form: TAB, Daily, Dosing Weight 100, kg, Start date: 06/20/18 9:00:00CST, Duration: 30 day, Stop date: 07/19/18 9:00:00 DRY KILN BURNER Notes: (Same as: Zyloprim) Start Date: 06/20/18 Stop Date: 06/21/18 Status: Discontinuedaspirin 325 mg, 1 tab, Route: PO, Drug form: ECTAB, Daily, Dosing Weight 100, kg, Priority: Routine, Start date: 06/20/18 9:00:00 DRY KILN BURNER, Duration: 30 day, Stop date : 07/19/18 9:00:00 DRY KILN BURNER Notes: (Do Not Crush) Do not crush or chew. Start Date: 06/20/18 Stop Date: 06/21/18 Status: DiscontinuedBetapace AF 80 mg, 1 tab, Route: PO, Drug form: TAB, ONCE, Dosing Weight 100, kg, Priority: NOW, Start date: 06/19/18 18:02:00 DRY KILN BURNER, Stop date: 06/19/18 18:02:00 DRY KILN BURNER Start Date: 06/19/18 Stop Date: 06/19/18 Status: CompletedCrestor 10 mg, 1 tab, Route: PO, Drug form: TAB, Bedtime, Dosing Weight 100, kg, Start date: 06/19/18 21:00:00 DRY KILN BURNER, Duration: 30 day, Stop date: 07/18/18 21:00:00 DRY KILN BURNER Notes: (Same As: Crestor) Start Date: 06/19/18 Stop Date: 06/21/18 Status: Discontinueddiltiazem 30 mg, 1 tab, Route: PO, Drug form: TAB, Q6H, Dosing Weight 100, kg, Start date : 06/19/18 18:00:00 DRY KILN BURNER, Duration: 30 day, Stop date: 07/19/18 12:00:00 DRY KILN BURNER Start Date: 06/19/18 Stop Date: 06/21/18 Status: Discontinueddiltiazem 30 mg oral tablet 30 mg=1 tab, PO, Q6H, # 120 tab, 0 Refill(s), Pharmacy: [facility]/pharmacy #[id number] Start Date: 06/21/18 Stop Date: 12/16/18 Status: DiscontinuedDiovan HCT 80 mg-12.5 mg oral tablet 1 tab, Route: PO, Dosing Weight 100, kg, Daily, Start date: 06/20/18 9:00:00 DRY KILN BURNER , Duration: 30 day, Stop date: 07/19/18 9:00:00 DRY KILN BURNER Start Date: 06/20/18 Stop Date: 06/19/18 Status: Deletedfolic acid 1 mg, 1 tab, Route: PO, Drug form: TAB, Daily, Dosing Weight 100, kg, Start date : 06/20/18 9:00:00 DRY KILN BURNER, Duration: 30 day, Stop date: 07/19/18 9:00:00 DRY KILN BURNER Notes: (Same as: Folvite) Start Date: 06/20/18 Stop Date: 06/21/18 Status: DiscontinuedGlucosamine Chondroitin MSM Complex 1,500 mg, Route: PO, Dosing Weight 100, kg, Daily, Start date: 06/20/18 9:00:00 DRY KILN BURNER, Duration: 30 day, Stop date: 07/19/18 9:00:00 DRY KILN BURNER Start Date: 06/20/18 Stop Date: 06/21/18 Status: DiscontinuedLasix 40 mg oral tablet 40 mg, 1 tab, Route: PO, Drug form: TAB, Daily, Dosing Weight 100, kg, Start date: 06/20/18 9:00:00 DRY KILN BURNER, Duration: 30 day, Stop date: 07/19/18 9:00:00 DRY KILN BURNER Notes: (Same as: Lasix) May cause GI upset. Give with food or milk. Start Date: 06/20/18 Stop Date: 06/21/18 Status: DiscontinuedMicrozide 12.5 mg, 1 cap, Route: PO, Drug form: CAP, Daily, Start date: 06/20/18 9:00:00 DRY KILN BURNER, Duration: 30 day, Stop date: 07/19/18 9:00:00 DRY KILN BURNER Start Date: 06/20/18 Stop Date: 06/21/18 Status: Discontinuedsotalol 160 mg, 2 tab, Route: PO, Drug form: TAB, Q12H, Dosing Weight 100, kg, Start date: 06/20/18 9:00:00 DRY KILN BURNER, Duration: 30 day, Stop date: 07/19/18 21:00:00 DRY KILN BURNER Notes: (Same As: Betapace) Start Date: 06/20/18 Stop Date: 06/21/18 Status: Discontinuedsotalol 160 mg, 2 tab, Route: PO, Drug form: TAB, Q12H, Dosing Weight 100, kg, Start date: 06/19/18 23:00:00CST, Duration: 30 day, Stop date: 07/19/18 11:00:00 DRY KILN BURNER Start Date: 06/19/18 Stop Date: 06/20/18 Status: Discontinuedsotalol 80 mg, 1 tab, Route: PO, Drug form: TAB, Q12H, Dosing Weight 97.813, kg, Priority: NOW, Start date: 06/20/18 13:45:00 DRY KILN BURNER, Duration: 30 day, Stop date: 07/20/18 9:00:00 DRY KILN BURNER Notes: (Same As: Betapace) Start Date: 06/20/18 Stop Date: 06/20/18 Status: Discontinuedsotalol 160 mg oral tablet 160 mg=1 tab, PO, BID Start Date: 06/19/18 Stop Date: 12/16/18 Status: Discontinuedsotalol AF 80 mg oral tablet 80 mg, 1 tab, Route: PO, Drug form: TAB, ONCE, Dosing Weight 100, kg, Priority: NOW, Start date: 06/19/18 16:16:00 DRY KILN BURNER, Stop date: 06/19/18 16:16:00 DRY KILN BURNER Notes: Non-Formulary Drug(Same As: Betapace AF) Start Date: 06/19/18 Stop Date: 06/19/18 Status: DeletedTylenol 650 mg, 20.3 mL, Route: PO, Drug form: LIQ, Q6H, Dosing Weight 100, kg, PRN Pain Score 1-5, Start date: 06/19/18 15:51:00 DRY KILN BURNER, Duration: 30 day, Stop date: 07/19/18 15:50:00 DRY KILN BURNER Notes: Max ihflswpbjbmmi=2364ea/day (4 gm/day). (Same as: Tylenol) Start Date: 06/19/18 Stop Date: 06/21/18 Status: Discontinuedvalsartan 80 mg, 1 tab, Route: PO, Drug form: TAB, Daily, Start date: 06/20/18 9:00:00 DRY KILN BURNER , Duration: 30 day, Stop date: 07/19/18 9:00:00 DRY KILN BURNER Start Date: 06/20/18 Stop Date: 06/21/18 Status: DiscontinuedVitamin C 500 mg, 1 tab, Route: PO, Drug form: TAB, Daily, Dosing Weight 100, kg, Start date: 06/20/18 9:00:00CST, Duration: 30 day, Stop date: 07/19/18 9:00:00 DRY KILN BURNER Notes: (Same as: Vitamin C) Start Date: 06/20/18 Stop Date: 06/21/18 Status: DiscontinuedVitamin D3 2000 intl units oral tablet 2,000 IntlUnit, 2 tab, Route: PO, Drug form: TAB, Daily, Dosing Weight 100, kg, Start date: 189:00:00 DRY KILN BURNER, Duration: 30 day, Stop date: 07/19/18 9:00:00 DRY KILN BURNER Notes: Same as : Vitamin D3 Start Date: 06/20/18 Stop Date: 06/21/18 Status: Discontinuedvitamin E 400 IntlUnit, 1 cap, Route: PO, Drug form: CAP, qWeek, Dosing Weight 100, kg, Start date: 06/20/18 9:00:00 DRY KILN BURNER, Duration: 30 day, Stop date: 07/18/18 9:00:00 DRY KILN BURNER Start Date: 06/20/18 Stop Date: 06/21/18 Status: DiscontinuedXarelto 20 mg, 1 tab, Route: PO, Drug form: TAB, QPM, Dosing Weight 100, kg, Start date : 06/19/18 17:00:00 DRY KILN BURNER, Duration: 30 day, Stop date: 07/18/18 17:00:00 DRY KILN BURNER Notes: (Same as: Xarelto)Administer with food Start Date: 06/19/18 Stop Date: 06/21/18 Status: Discontinued Results Most recent to oldest 1 2 3 [Reference Range]: Neutrophils # [1.5-8.1 3.3 K/CMM 4.9 K/CMM 4.7 K/CMM K/CMM] (06/21/18 5:07 AM) (06/20/18 4:35 AM) (06/19/18 3:37 PM) Lymphocytes # [1.0-5.5 0.8 K/CMM 0.7 K/CMM 0.9 K/CMM K/CMM] *LOW* *LOW* *LOW* (06/21/18 5:07 AM) (06/20/18 4:35 AM) (06/19/18 3:37 PM) Monocytes # [0.0-0.8 K/CMM] 0.8 K/CMM 1.1 K/CMM 1.0 K/CMM (06/21/18 5:07 AM) *HI* *HI* (06/20/18 4:35 AM) (06/19/18 3:37 PM) Eosinophils # [0.0-0.5 0.2 K/CMM 0.2 K/CMM 0.2 K/CMM K/CMM] (06/21/18 5:07 AM) (06/20/18 4:35 AM) (06/19/18 3:37 PM) Basophils # [0.0-0.2 K/CMM] 0.1 K/CMM 0.1 K/CMM 0.1 K/CMM (06/21/18 5:07 AM) (06/20/18 4:35 AM) (06/19/18 3:37 PM) BNP [<=100 pg/mL] 280 pg/mL *HI* (06/19/18 3:46 PM) Plt Morph Normal (06/19/18 3:37 PM) Bili Indirect [0.0-1.0 0.4 mg/dL 0.6 mg/dL mg/dL] (06/20/18 4:35 AM) (06/19/18 3:46 PM) eGFR 66 mL/min/1.73m2 1 73 mL/min/1.73m2 2 51 mL/min/1.73m2 3 *NA* *NA* *NA* (06/21/18 5:07 AM) (06/20/18 4:35 AM) (06/19/18 3:46 PM) A/G Ratio [0.7-1.6] 0.9 0.9 (06/20/18 4:35 AM) (06/19/18 3:46 PM) Albumin Lvl [3.5-5.0 g/dL] 3.2 g/dL 3.8 g/dL *LOW* (06/19/18 3:46 PM) (06/20/18 4:35 AM) Alk Phos [39-136 unit/L] 61 unit/L 79 unit/L (06/20/18 4:35 AM) (06/19/18 3:46 PM) ALT [0-65 unit/L] 26 unit/L 37 unit/L (06/20/18 4:35 AM) (06/19/18 3:46 PM) AGAP [10.0-20.0 mEq/L] 12.8 mEq/L 15.8 mEq/L 17.1 mEq/L (06/21/18 5:07 AM) (06/20/18 4:35 AM) (06/19/18 3:46 PM) AST [0-37 unit/L] 24 unit/L 26 unit/L (06/20/18 4:35 AM) (06/19/18 3:46 PM) Basophils [0.0-1.0 %] 1.1 % 0.8 % 1.0 % *HI* (06/20/18 4:35 AM) (06/19/18 3:37 PM) (06/21/18 5:07 AM) BUN [7-22 mg/dL] 32 mg/dL 33 mg/dL 34 mg/dL *HI* *HI* *HI* (06/21/18 5:07 AM) (06/20/18 4:35 AM) (06/19/18 3:46 PM) Calcium Lvl [8.5-10.5 8.5 mg/dL 8.4 mg/dL 9.2 mg/dL mg/dL] (06/21/18 5:07 AM) *LOW* (06/19/18 3:46 PM) (06/20/18 4:35 AM) CHD Risk [4.00-7.30] 3.15 *LOW* (06/20/18 4:35 AM) Chol [<=199 mg/dL] 107 mg/dL (06/20/18 4:35 AM) Total CK [12-191 unit/L] 102 unit/L 117 unit/L 126 unit/L (06/20/18 4:35 AM) (06/19/18 9:43 PM) (06/19/18 3:46 PM) CK MB [0.5-3.6 ng/mL] 2.0 ng/mL 1.7 ng/mL 1.5 ng/mL (06/20/18 4:35 AM) (06/19/18 9:43 PM) (06/19/18 3:46 PM) CK MB Index [0.0-2.5] 2.0 1.5 1.2 (06/20/18 4:35 AM) (06/19/18 9:43 PM) (06/19/18 3:46 PM) Chloride Lvl [95-109 mEq/L] 107 mEq/L 109 mEq/L 106 mEq/L (06/21/18 5:07 AM) (06/20/18 4:35 AM) (06/19/18 3:46 PM) CO2 [24-32 mEq/L] 24 mEq/L 22 mEq/L 23 mEq/L (06/21/18 5:07 AM) *LOW* *LOW* (06/20/18 4:35 AM) (06/19/18 3:46 PM) Creatinine Lvl [0.50-1.40 1.17 mg/dL 1.07 mg/dL 1.44 mg/dL mg/dL] (06/21/18 5:07 AM) (06/20/18 4:35 AM) *HI* (06/19/18 3:46 PM) Bili Direct [0.0-0.3 mg/dL] 0.2 mg/dL 0.2 mg/dL (06/20/18 4:35 AM) (06/19/18 3:46 PM) Eosinophils [0.0-4.0 %] 4.2 % 3.4 % 2.9 % *HI* (06/20/18 4:35 AM) (06/19/18 3:37 PM) (06/21/18 5:07 AM) Globulin [2.7-4.2 g/dL] 3.4 g/dL 4.2 g/dL (06/20/18 4:35 AM) (06/19/18 3:46 PM) Glucose Lvl [70-99 mg/dL] 117 mg/dL 108 mg/dL 103 mg/dL *HI* *HI* *HI* (06/21/18 5:07 AM) (06/20/18 4:35 AM) (06/19/18 3:46 PM) Hct [42.0-54.0 %] 40.3 % 39.0 % 44.8 % *LOW* *LOW* (06/19/18 3:37 PM) (06/21/18 5:07 AM) (06/20/18 4:35 AM) HDL [>=61 mg/dL] 34 mg/dL *LOW* (06/20/18 4:35 AM) Hgb [14.0-18.0 g/dL] 13.8 g/dL 13.3 g/dL 14.8 g/dL *LOW* *LOW* (06/19/18 3:37 PM) (06/21/18 5:07 AM) (06/20/18 4:35 AM) Hgb A1C [<=5.6 %] 5.8 % *HI* (06/20/18 4:35 AM) INR [0.85-1.17] 1.94 1.24 *HI* *HI* (06/21/18 5:07 AM) (06/19/18 3:37 PM) Potassium Lvl [3.5-5.1 3.8 mEq/L 3.8 mEq/L 4.1 mEq/L mEq/L] (06/21/18 5:07 AM) (06/20/18 4:35 AM) (06/19/18 3:46 PM) LDL (Calculated) [<=99 25 mg/dL mg/dL] (06/20/18 4:35 AM) Lymphocytes [20.0-40.0 %] 15.2 % 10.5 % 13.7 % *LOW* *LOW* *LOW* (06/21/18 5:07 AM) (06/20/18 4:35 AM) (06/19/18 3:37 PM) MCH [27.0-31.0 pg] 33.3 pg 33.6 pg 32.7 pg *HI* *HI* *HI* (06/21/18 5:07 AM) (06/20/18 4:35 AM) (06/19/18 3:37 PM) MCHC [32.0-36.0 g/dL] 34.1 g/dL 34.2 g/dL 32.9 g/dL (06/21/18 5:07 AM) (06/20/18 4:35 AM) (06/19/18 3:37 PM) MCV [80.0-94.0 fL] 97.7 fL 98.2 fL 99.4 fL *HI* *HI* *HI* (06/21/18 5:07 AM) (06/20/18 4:35 AM) (06/19/18 3:37 PM) Magnesium Lvl [1.8-2.4 2.1 mg/dL 2.2 mg/dL 2.1 mg/dL mg/dL] (06/21/18 5:07 AM) (06/20/18 4:35 AM) (06/19/18 3:46 PM) Monocytes [2.0-12.0 %] 15.9 % 15.9 % 14.1 % *HI* *HI* *HI* (06/21/18 5:07 AM) (06/20/18 4:35 AM) (06/19/18 3:37 PM) MPV [7.4-10.4 fL] 9.7 fL 10.0 fL 9.4 fL (06/21/18 5:07 AM) (06/20/18 4:35 AM) (06/19/18 3:37 PM) Sodium Lvl [135-145 mEq/L] 140 mEq/L 143 mEq/L 142 mEq/L (06/21/18 5:07 AM) (06/20/18 4:35 AM) (06/19/18 3:46 PM) Phosphorus [2.5-4.5 mg/dL] 4.8 mg/dL 4.0 mg/dL 4.4 mg/dL *HI* (06/20/18 4:35 AM) (06/19/18 3:46 PM) (06/21/18 5:07 AM) Platelet [133-450 K/CMM] 182 K/CMM 190 K/CMM 203 K/CMM (06/21/18 5:07 AM) (06/20/18 4:35 AM) (06/19/18 3:37 PM) Segs [45.0-75.0 %] 63.6 % 69.4 % 68.3 % (06/21/18 5:07 AM) (06/20/18 4:35 AM) (06/19/18 3:37 PM) Total Protein [6.4-8.4 6.6 g/dL 8.0 g/dL g/dL] (06/20/18 4:35 AM) (06/19/18 3:46 PM) PT [12.0-14.7 seconds] 21.7 seconds 15.4 seconds *HI* *HI* (06/21/18 5:07 AM) (06/19/18 3:37 PM) PTT [22.9-35.8 seconds] 40.0 seconds 32.9 seconds *HI* (06/19/18 3:46 PM) (06/21/18 5:07 AM) RBC [4.70-6.10 M/CMM] 4.13 M/CMM 3.97 M/CMM 4.51 M/CMM *LOW* *LOW* *LOW* (06/21/18 5:07 AM) (06/20/18 4:35 AM) (06/19/18 3:37 PM) RBC Morph Normal (06/19/18 3:37 PM) RDW [11.5-14.5 %] 14.1 % 14.0 % 14.4 % (06/21/18 5:07 AM) (06/20/18 4:35 AM) (06/19/18 3:37 PM) Bili Total [0.2-1.3 mg/dL] 0.6 mg/dL 0.8 mg/dL (06/20/18 4:35 AM) (06/19/18 3:46 PM) Trig [<=149 mg/dL] 240 mg/dL *HI* (06/20/18 4:35 AM) Troponin-I [0.00-0.40 <0.02 ng/mL <0.02 ng/mL <0.02 ng/mL ng/mL] (06/20/18 4:35 AM) (06/19/18 9:43 PM) (06/19/18 3:46 PM) Troponin-T [0.000-0.100 <0.010 ng/mL <0.010 ng/mL <0.010 ng/mL ng/mL] (06/20/18 4:35 AM) (06/19/18 9:43 PM) (06/19/18 3:46 PM) UA Bacteria [None Seen Occasional /HPF /HPF] *NA* (06/19/18 9:43 PM) UA Bili [Negative] Negative *NA* (06/19/18 9:43 PM) UA Blood [Negative] Negative (06/19/18 9:43 PM) UA Color [Yellow] Yellow *NA* (06/19/18 9:43 PM) UA Glucose [Negative mg/dL] Negative mg/dL *NA* (06/19/18 9:43 PM) UA Ketones [Negative mg/dL] Negative mg/dL *NA* (06/19/18 9:43 PM) UA Leuk Est [Negative] Negative (06/19/18 9:43 PM) UA Mucus [None Seen /LPF] Few /LPF *NA* (06/19/18 9:43 PM) UA Nitrite [Negative] Negative (06/19/18 9:43 PM) UA pH [5.0-8.0] 5.5 (06/19/18 9:43 PM) UA Protein [Negative mg/dL] 20 mg/dL *ABN* (06/19/18 9:43 PM) UA Spec Grav [<=1.030] 1.019 (06/19/18 9:43 PM) UA Sq Epi None Seen *NA* (06/19/18 9:43 PM) UA Turbidity [Clear] Clear (06/19/18 9:43 PM) UA Urobilinogen [0.1-1.0 <=1.0 mg/dL mg/dL] *NA* (06/19/18 9:43 PM) UA WBC [0-5 /HPF] 1 /HPF (06/19/18 9:43 PM) WBC [3.7-10.4 K/CMM] 5.2 K/CMM 7.1 K/CMM 6.8 K/CMM (06/21/18 5:07 AM) (06/20/18 4:35 AM) (06/19/18 3:37 PM) VLDL 48 *NA* (06/20/18 4:35 AM) 1Result Comment: The eGFR is calculated using [...] eGFR should be multiplied by the estimated BMI.2Result Comment: The eGFR is calculated using the CKD-EPI formula. In most young, healthy individualsthe eGFR will be >90 mL/min/1.73m2. [...] eGFR should be multiplied by the estimated BMI.3Result Comment: The eGFR is calculated using the CKD-EPI formula. In most young, healthy individualsthe eGFR will be >90 mL/min/1.73m2. [...] has not had an ablation in the [id number] knee Social History Social History Type Response [...] No entered on: 12/11/18 Assessment and Plan Extracted from: Title: Progress Note * Author: Corrie Del Toro NP Date: 06/21/18 [...] Last Charted Temp Oral 98.1 DegF (JUN 21) Heart Rate Peripheral L 54bpm (JUN 21) Resp Rate 20 BRMIN (JUN 21) SBP 132 mmHg (JUN 21:) DBP 72 mmHg (JUN 21:) SpO2 98 % (JUN 21) General: Alert and oriented, No acute distress, [...] No focal deficits. Psychiatric: Cooperative, Appropriate mood & affect. Review / Management Results review: Labs (Last four charted values) WBC 5.2 (JUN 21) 7.1 (JUN 20) 6.8 (JUN 19) Hgb L 13.8 (JUN 21) L 13.3 (JUN 20) 14.8 (JUN 19) Hct L 40.3 (JUN 21) L 39.0 (JUN 20) 44.8 (JUN 19) Plt 182 (JUN 21) 190 (JUN 20) 203 (JUN 19) Na 140 (JUN 21) 143 (JUN 20) 142 (JUN 19) K 3.8 (JUN 21) 3.8 (JUN 20) 4.1 (JUN 19) CO2 24 (JUN 21) L 22 (JUN 20) L 23 (JUN 19) Cl 107 (JUN 21) 109 (JUN 20) 106 (JUN 19) Cr 1.17 (JUN 21) 1.07 (JUN 20) H 1.44 (JUN 19) BUN H 32 (JUN 21) H 33 (JUN 20) H 34 (JUN 19) Glucose Random H 117 (JUN 21) H 108 (JUN 20) H 103 (JUN 19) Mg 2.1 (JUN 21) 2.2 (JUN 20) 2.1 (JUN 19) Phos H 4.8 (JUN 21) 4.0 (JUN 20) 4.4 (JUN 19) Ca 8.5 (JUN 21) L 8.4 (JUN 20) 9.2 (JUN 19) PT H 21.7 (JUN 21) H 15.4 (JUN 19) INR H 1.94 (JUN 21) H 1.24 (JUN 19) PTT H 40.0 (JUN 21) 32.9 (JUN 19) Troponin <0.02 (JUN 20) <0.02 (JUN 19) <0.02 (DEC 12) CK MB 2.0 (JUN 20) 1.7 (JUN 19) 1.5 (JUN 19) Total CK 102 (JUN 20) 117 (DEC ) 126 (JUN 19) . Lines and Tubes: Peripheral catheter: Site: [...] better 35-40% 2. Chronic systolic heart failure, [place] [employer] class II - echocardiogram has [...] The patient was seen and examined with LOOM STOP CHECKER. Agree with note by LOOM STOP CHECKER. No dyspnea. [place] comfortable. LVEF 35 - 40% by echocardiography. Would discharge home and return on 06-24-2018 for repeat cardioversion as outpatient. Continue sotalol 160 mg bid. Extracted from: Title: History and Physical Author: Aida Dumont DNP Date: 06/19/18 History and Physical dictated. Dictation# [id number]. Ahmad Soboh, DNP, HEAD GROWER, ACNP-BC, ANP-BC, LOOM STOP CHECKER-C Department of Cardiology Pager# [phone] MSO# [id number]
--- OUTSIDE RECORDS SUMMARY | 2019-03-12 16:31 | XMS REPORT | Summary of Care ---
:[address] [facility] [place], [place] Address [address] [place] [id number] Encounter HQ Encntr_alias(FIN) [id number] Date(s): 12/11/18 - 12/16/[address] Professional Services provided by [facility] [place] [address]- Encounter Diagnosis Unspecified atrial fibrillation (Final) - Discharge Disposition: Home or Self Care Attending Physician: Yasmani Joya MD Admitting Physician: Yasmani Joya MD Vital Signs Most recent to oldest 1 2 3 [Reference Range]: Height 175.26 cm (12/11/18 2:41 PM) Current Weight 101.165 kg 101.182 kg 101.364 kg (12/16/18 5:00 AM) (12/15/18 4:32 AM) (12/14/18 4:57 AM) Temperature Oral [96.4-99.1 96.7 DegF 96.8 DegF 97.8 DegF DegF] (12/16/18 11:50 AM) (12/16/18 4:04 AM) (12/16/18 12:00 AM) Blood Pressure [90-140/60-90 124/70 mmHg 106/63 mmHg 96/62 mmHg mmHg] (12/16/18 3:00 PM) (12/16/18 1:30 PM) (12/16/18 1:25 PM) Respiratory Rate [14-20 17 BRMIN 20 BRMIN 17 BRMIN BRMIN] (12/16/18 3:00 PM) (12/16/18 2:00 PM) (12/16/18 1:30 PM) Weight 100 kg (12/11/18 2:41 PM) Body Mass Index 32.56 m2 (12/11/18 2:41 PM) Problem List Condition Effective Dates Status Health Status Informant Afib(Confirmed) Resolved HTN (hypertension)(Confirmed) Resolved Hypercholesteremia(Confirmed) Resolved Non Hodgkin's lymphoma(Confirmed)1 Resolved Psoriasis(Confirmed) Resolved Ventricular tachycardia(Confirmed) Resolved [address] Allergies, Adverse Reactions, Alerts Substance Reaction Severity Status Demerol Active Medications allopurinol 300 mg, 1 tab, Route: PO, Drug form: TAB, Daily, Dosing Weight 97.727, kg, Start date: 12/12/18 9:00:00 CDT, Duration: 30 day, Stop date: 01/10/19 9:00:00 CDT Notes: (Same as: Zyloprim) Start Date: 12/12/18 Stop Date: 12/16/18 Status: Discontinuedaspirin 81 mg, 1 tab, Route: PO, Drug form: ECTAB, Daily, Dosing Weight 100, kg, Start date: 12/15/18 9:00:00 CDT, Duration: 30 day, Stop date: 01/13/19 9:00:00 CDT Notes: Do not crush or chew.(Same As: Ecotrin) Start Date: 12/15/18 Stop Date: 12/16/18 Status: Discontinuedaspirin 325 mg tablet 325 mg, 1 tab, Route: PO, Drug form: TAB, Daily, Dosing Weight 100, kg, Start date: 12/12/18 9:00:00CDT, Duration: 30 day, Stop date: 01/10/19 9:00:00 CDT Notes: Take with food. Start Date: 12/12/18 Stop Date: 12/14/18 Status: Discontinuedaspirin 81 mg tablet, enteric coated 81 mg=1 tab, PO, Daily, 0 Refill(s) Start Date: 12/16/18 Status: Orderedcalcium gluconate + Sodium Chloride 0.9% IV 80 mL 3 gm, 30 mL, Route: IVPB, PRN, Dosing Weight 100, kg, PRN Abnormal Lab Result, For NON-ICU Patients Only., Start date: 12/15/18 5:13:00 CDT, Duration: 30 day, Stop date: 01/14/19 5:12:00 CDT Notes: WASTE: F/P - Sink; E - Municipal Trash Bin Start Date: 12/15/18 Stop Date: 12/16/18 Status: Discontinuedcalcium gluconate + Sodium Chloride 0.9% IV 80 mL 2 gm, 20 mL, Route: IVPB, PRN, Dosing Weight 100, kg, PRN Abnormal Lab Result, For NON-ICU Patients Only., Start date: 12/15/18 5:13:00 CDT, Duration: 30 day, Stop date: 01/14/19 5:12:00 CDT Notes: WASTE: F/P - Sink; E - Municipal Trash Bin Start Date: 12/15/18 Stop Date: 12/16/18 Status: Discontinuedcholecalciferol 2000 intl units oral tablet 4,000 IntlUnit, 2 tab, Route: PO, Drug form: TAB, Daily, Dosing Weight 100, kg, Start date: 199:00:00 CDT, Duration: 30 day, Stop date: 01/10/19 9:00:00 CDT Notes: (Same as: Vitamin D3) Start Date: 12/12/18 Stop Date: 12/16/18 Status: Discontinueddiltiazem 30 mg, 1 tab, Route: PO, Drug form: TAB, Q6H, Dosing Weight 100, kg, Start date : 12/16/18 18:00:00 CDT, Duration: 30 day, Stop date: 01/15/19 12:00:00 CDT Notes: (Same as: Cardizem) Before meals Start Date: 12/16/18 Stop Date: 12/16/18 Status: Discontinueddiltiazem 30 mg oral tablet 30 mg=1 tab, PO, Q6H, # 120 tab, 1 Refill(s) Start Date: 12/16/18 Status: Ordereddofetilide 250 microgram, 1 cap, Route: PO, Drug form: CAP, TID, Dosing Weight 100, kg, Start date: 12/15/18 1:10:00 CDT, Duration: 30 day, Stop date: 01/14/19 1:00:00 CDT Notes: (Same as: Tikosyn)Providers should enter the orders via the "Dofetilide Initiation Orders MPP" to ensure compliance with the REMS program. Start Date: 12/15/18 Stop Date: 12/15/18 Status: Discontinueddofetilide 500 microgram, 1 cap, Route: PO, Drug form: CAP, ONCE, Dosing Weight 100, kg, Start date: 12/13/18 21:00:00 CDT, Stop date: 12/13/18 21:00:00 CDT Notes: (Same as: Tikosyn)Providers should enter the orders via the "Dofetilide Initiation Orders MPP" to ensure compliance with the REMS program. Start Date: 12/13/18 Stop Date: 12/13/18 Status: Completeddofetilide 125 microgram, Route: PO, Drug form: CAP, Q12H, Dosing Weight 100, kg, Start date: 12/15/18 17:00:00CDT, Duration: 30 day, Stop date: 01/14/19 9:00:00 CDT Notes: (Same as: Tikosyn)Providers should enter the orders via the "Dofetilide Initiation Orders MPP" to ensure compliance with the REMS program. Start Date: 12/15/18 Stop Date: 12/16/18 Status: Discontinueddofetilide 250 microgram, 1 cap, Route: PO, Drug form: CAP, TID, Dosing Weight 100, kg, Start date: 12/14/18 8:00:00 CDT, Duration: 30 day, Stop date: 01/12/19 22:00: 00 CDT Notes: (Same as: Tikosyn)Providers should enter the orders via the "Dofetilide Initiation Orders MPP" to ensure compliance with the REMS program. Start Date: 12/14/18 Stop Date: 12/14/18 Status: Voided With Resultsdofetilide 125 microgram, 1 cap, Route: PO, Drug form: CAP, Q12H, Dosing Weight 100, kg, Priority: NOW, Start date: 12/16/18 9:12:00 CDT, Duration: 30 day, Stop date: 9:00:00 CDT Notes: (Same as: Tikosyn)Providers should enter the orders via the "Dofetilide Initiation Orders MPP" to ensure compliance with the REMS program. Start Date: 12/16/18 Stop Date: 12/16/18 Status: Discontinueddofetilide 250 microgram, 1 cap, Route: PO, Drug form: CAP, Q12H, Dosing Weight 100, kg, Start date: 12/11/18 21:00:00 CDT, Duration: 30 day, Stop date: 01/10/19 9:00: 00 CDT Notes: (Same as: Tikosyn)Providers should enter the orders via the "Dofetilide Initiation Orders MPP" to ensure compliance with the REMS program. Start Date: 12/11/18 Stop Date: 12/15/18 Status: Voided With Resultsdofetilide 250 microgram, 1 cap, Route: PO, Drug form: CAP, TID, Dosing Weight 100, kg, Start date: 12/14/18 17:40:00 CDT, Duration: 30 day, Stop date: 01/13/19 17:00: 00 CDT Notes: (Same as: Tikosyn)Providers should enter the orders via the "Dofetilide Initiation Orders MPP" to ensure compliance with the REMS program. Start Date: 12/14/18 Stop Date: 12/15/18 Status: Voided With Resultsfolic acid 1 mg, Route: PO, Drug form: TAB, Daily, Dosing Weight 100, kg, Start date: 12/12 9:00:00 CDT, Duration: 30 day, Stop date: 01/10/19 9:00:00 CDT Start Date: 12/12/18 Stop Date: 12/12/18 Status: Canceledfolic acid 1 mg, 1 tab, Route: PO, Drug form: TAB, Daily, Dosing Weight 97.727, kg, Start date: 12/12/18 9:00:00 CDT, Duration: 30 day, Stop date: 01/10/19 9:00:00 CDT Notes: (Same as: Folvite) Start Date: 12/12/18 Stop Date: 12/16/18 Status: Discontinuedglucosamine 1,500 mg, Route: PO, Drug form: TAB, Daily, Dosing Weight 100, kg, Start date: 12/12/18 9:00:00 CDT,Duration: 30 day, Stop date: 01/10/19 9:00:00 CDT Start Date: 12/12/18 Stop Date: 12/12/18 Status: DiscontinuedLasix 40 mg oral tablet 40 mg=1 tab, PO, BID, 0 Refill(s) Start Date: 12/16/18 Status: OrderedLasix 40 mg oral tablet 40 mg, 1 tab, Route: PO, Drug form: TAB, BID, Dosing Weight 97.727, kg, Start date: 12/11/18 17:00:00 CDT, Duration: 30 day, Stop date: 01/10/19 9:00:00 CDT Notes: (Same as: Lasix) May cause GI upset. Give with food or milk. Start Date: 12/11/18 Stop Date: 12/16/18 Status: Discontinuedmagnesium oxide 800 mg, 2 tab, Route: PO, Drug form: TAB, PRN, Dosing Weight 100, kg, PRN Abnormal Lab Result, For NON-ICU Patients Only., Start date: 12/15/18 5:13:00 CDT, Duration: 30 day, Stop date: 01/14/19 5:12:00 CDT Notes: (Same as: Mag-Ox 400)Magnesium oxide [id number] elemental magnesiumDose= ____mg magnesium oxide (___mg elemental magnesium) Start Date: 12/15/18 Stop Date: 12/16/18 Status: Discontinuedmagnesium sulfate 2 gm, 50 mL, Route: IVPB, Drug form: INJ, PRN, Dosing Weight 100, kg, PRN Abnormal Lab Result, For NON-ICU Patients Only., Start date: 12/15/18 5:13:00 CDT, Duration: 30 day, Stop date: 01/14/19 5:12:00 CDT Notes: WASTE: F/P - Sink; E - Municipal Trash Bin Start Date: 12/15/18 Stop Date: 12/16/18 Status: Discontinuedmagnesium sulfate 1 gm, 100 mL, Route: IVPB, Drug form: INJ, PRN, Dosing Weight 100, kg, PRN Abnormal Lab Result, For NON-ICU Patients Only., Start date: 12/15/18 5:13:00 CDT, Duration: 30 day, Stop date: 01/14/19 5:12:00 CDT Notes: WASTE: F/P - Sink; E - Municipal Trash Bin Start Date: 12/15/18 Stop Date: 12/16/18 Status: Discontinuedmultivitamin with minerals 1 tab, Route: PO, Drug Form: TAB, Dosing Weight 100, kg, Daily, Start date: 12/25 9:00:00 CDT, Duration: 30 day, Stop date: 01/10/19 9:00:00 CDT Notes: (Same as:Thera-M, Theragran-M)WASTE: F/P - Black; E - Municipal Trash Bin Give with food. Start Date: 12/12/18 Stop Date: 12/16/18 Status: Discontinuedpotassium chloride 20 mEq, 15 mL, Route: NJ, Drug form: LIQ, PRN, Dosing Weight 100, kg, PRN Abnormal Lab Result, For NON-ICU Patients Only, Start date: 12/15/18 5:13:00 CDT , Duration: 30 day, Stop date: 01/14/19 5:12:00CDT Notes: (Same as: Potassium Chloride) Start Date: 12/15/18 Stop Date: 12/16/18 Status: Discontinuedpotassium chloride 10 mEq, 50 mL, Route: IVPB, Drug form: INJ, PRN, Dosing Weight 100, kg, PRN Abnormal Lab Result, ForNON-ICU Patients Only, Start date: 12/15/18 5:13:00 CDT , Duration: 30 day, Stop date: 01/14/19 5:12:00 CDT Notes: (Same as: KCL) Infuse over 2 hours. Start Date: 12/15/18 Stop Date: 12/16/18 Status: Discontinuedpotassium chloride 20 mEq, 1 tab, Route: PO, Drug form: ERTAB, PRN, Dosing Weight 100, kg, PRN Abnormal Lab Result, ForNON-ICU Patients Only, Start date: 12/15/18 5:13:00 CDT , Duration: 30 day, Stop date: 01/14/19 5:12:00 CDT Notes: (Same as: K-Dur 20)"Do Not Crush" Give with food and full glass of waterFor patients unable to swallow tablet, dissolve in one half glass of water. Allow about 2 minutes for the tablets to disintegrate. Stir before giving to prepare slurry and administer.Please exclude Patients with feedingtube less than 14 Armenian (Dobhoff, J-tube etc) and pediatric and patients. Start Date: 12/15/18 Stop Date: 12/16/18 Status: Discontinuedpotassium chloride 20 mEq, 1 tab, Route: PO, Drug form: ERTAB, ONCE, Dosing Weight 100, kg, Start date: 12/16/18 6:18:00 CDT, Stop date: 12/16/18 6:18:00 CDT Notes: (Same as: K-Dur 20)"Do Not Crush" Give with food and full glass of waterFor patients unable to swallow tablet, dissolve in one half glass of water. Allow about 2 minutes for the tablets to disintegrate. Stir before giving to prepare slurry and administer.Please exclude Patients with feedingtube less than 14 Armenian (Dobhoff, J-tube etc) and pediatric and patients. Start Date: 12/16/18 Stop Date: 12/16/18 Status: Completedpotassium chloride 20 mEq oral tablet, extended release 40 mEq, 2 tab, Route: PO, Drug form: ERTAB, ONCE, Dosing Weight 100, kg, Start date: 12/14/18 7:29:00 CDT, Stop date: 12/14/18 7:29:00 CDT Notes: (Same as: K-Dur 20)"Do Not Crush" Give with food and full glass of waterFor patients unable to swallow tablet, dissolve in one half glass of water. Allow about 2 minutes for the tablets to disintegrate. Stir before giving to prepare slurry and administer.Please exclude Patients with feedingtube less than 14 Armenian (Dobhoff, J-tube etc) and pediatric and patients. Start Date: 12/14/18 Stop Date: 12/14/18 Status: Completedpotassium chloride 20 mEq oral tablet, extended release 40 mEq, 2 tab, Route: PO, Drug form: ERTAB, ONCE, Dosing Weight 100, kg, Start date: 12/11/18 16:59:00 CDT, Stop date: 12/11/18 16:59:00 CDT Notes: (Same as: K-Dur 20)"Do Not Crush" Give with food and full glass of waterFor patients unable to swallow tablet, dissolve in one half glass of water. Allow about 2 minutes for the tablets to disintegrate. Stir before giving to prepare slurry and administer.Please exclude Patients with feedingtube less than 14 Armenian (Dobhoff, J-tube etc) and pediatric and patients. Start Date: 12/11/18 Stop Date: 12/11/18 Status: Completedpotassium phosphate + Sodium Chloride 0.9% IV 250 mL 30 mmol, 10 mL, Route: IVPB, PRN, Dosing Weight 100, kg, PRN Abnormal Lab Result , For NON-ICU Patients Only., Start date: 12/15/18 5:13:00 CDT, Duration: 30 day , Stop date: 01/14/19 5:12:00 CDT Notes: (Same as: K Phosphate.)Do not infuse phosphorous concurrently in the same line as TPN or IVF that contains calcium. For double lumen central lines, phosphorous may be infused in a separate lumenfrom TPN. 1 mMol phoshate has 1.47 mEq potassium Infuse over 4 hours Start Date: 12/15/18 Stop Date: 12/16/18 Status: Discontinuedpotassium phosphate + Sodium Chloride 0.9% IV 250 mL 15 mmol, 5 mL, Route: IVPB, PRN, Dosing Weight 100, kg, PRN Abnormal Lab Result , For NON-ICU Patients Only., Start date: 12/15/18 5:13:00 CDT, Duration: 30 day , Stop date: 01/14/19 5:12:00 CDT Notes: (Same as: K Phosphate.)Do not infuse phosphorous concurrently in the same line as TPN or IVF that contains calcium. For double lumen central lines, phosphorous may be infused in a separate lumenfrom TPN. 1 mMol phoshate has 1.47 mEq potassium Infuse over 4 hours Start Date: 12/15/18 Stop Date: 12/16/18 Status: Discontinuedpotassium phosphate-sodium phosphate 250 mg-280 mg-160 mg oral powder for reconstitution 2 pkt, Route: PO, Drug Form: PDR/REC, Dosing Weight 100, kg, PRN, PRN Abnormal Lab Result, For NON-ICU Patients Only, Start date: 12/15/18 5:13:00 CDT, Duration: 30 day, Stop date: 01/14/19 5:12:00 CDT Notes: (Same as: Phos-NaK) Each 1.5 gm pkt has 250mg phosphorous. Mix w/2.5oz water and stir. Start Date: 12/15/18 Stop Date: 12/16/18 Status: Discontinuedrosuvastatin 10 mg, 1 tab, Route: PO, Drug form: TAB, Bedtime, Dosing Weight 97.727, kg, Start date: 12/11/18 21:00:00 CDT, Duration: 30 day, Stop date: 01/09/19 21:00: 00 CDT Notes: (Same As: Crestor) Start Date: 12/11/18 Stop Date: 12/16/18 Status: Discontinuedsodium phosphate + Sodium Chloride 0.9% IV 250 mL 15 mmol, 5 mL, Route: IVPB, PRN, Dosing Weight 100, kg, PRN Abnormal Lab Result , For NON-ICU Patients Only., Start date: 12/15/18 5:13:00 CDT, Duration: 30 day , Stop date: 01/14/19 5:12:00 CDT Notes: Infuse over 4 hour. Do not infuse phosphorous concurrently in the same line as TPN or IVF that contains calcium. For double lumen central lines, phosphorous may be infused in a separate lumen from TPN. Start Date: 12/15/18 Stop Date: 12/16/18 Status: Discontinuedsodium phosphate + Sodium Chloride 0.9% IV 250 mL 30 mmol, 10 mL, Route: IVPB, PRN, Dosing Weight 100, kg, PRN Abnormal Lab Result , For NON-ICU Patients Only., Start date: 12/15/18 5:13:00 CDT, Duration: 30 day , Stop date: 01/14/19 5:12:00 CDT Notes: Infuse over 4 hour. Do not infuse phosphorous concurrently in the same line as TPN or IVF that contains calcium. For double lumen central lines, phosphorous may be infused in a separate lumen from TPN. Start Date: 12/15/18 Stop Date: 12/16/18 Status: DiscontinuedToprol-XL 100 mg oral tablet, extended release 100 mg, 1 tab, Route: PO, Drug form: ERTAB, Daily, Start date: 12/13/18 9:00:00 CDT, Duration: 30 day, Stop date: 01/11/19 9:00:00 CDT Notes: (Same as: Toprol XL) May split tab, but do not crush. Start Date: 12/13/18 Stop Date: 12/13/18 Status: DiscontinuedToprol-XL 100 mg oral tablet, extended release 100 mg, 1 tab, Route: PO, Drug form: ERTAB, BID, Start date: 12/14/18 9:00:00 CDT, Duration: 30 day,Stop date: 01/12/19 21:00:00 CDT Notes: (Same as: Toprol XL) May split tab, but do not crush. Start Date: 12/14/18 Stop Date: 12/16/18 Status: DiscontinuedToprol-XL 100 mg oral tablet, extended release 100 mg=1 tab, PO, BID, # 180 tab, 0 Refill(s) Start Date: 12/16/18 Stop Date: 03/16/19 Status: OrderedToprol-XL 25 mg oral tablet, extended release 75 mg, 3 tab, Route: PO, Drug form: ERTAB, Daily, Start date: 12/12/18 9:00:00 CDT, Duration: 30 day, Stop date: 01/10/19 9:00:00 CDT Notes: (Same as: Toprol XL) Do Not Crush Start Date: 12/12/18 Stop Date: 12/12/18 Status: DiscontinuedTylenol 650 mg, 2 tab, Route: PO, Drug form: TAB, Q6H, Dosing Weight 100, kg, PRN Pain 1 -3/Temp > 100.4 F, Start date: 12/12/18 19:08:00 CDT, Duration: 30 day, Stop date: 01/11/19 19:07:00 CDT Notes: Do not exceed 4 gm/day. (Same as: Tylenol) Start Date: 12/12/18 Stop Date: 12/16/18 Status: Discontinuedvalsartan 80 mg, 1 tab, Route: PO, Drug form: TAB, Daily, Dosing Weight 97.727, kg, Start date: 12/12/18 9:00:00 CDT, Duration: 30 day, Stop date: 01/10/19 9:00:00 CDT Notes: Same as Diovan Start Date: 12/12/18 Stop Date: 12/16/18 Status: DiscontinuedVitamin C 500 mg, 1 tab, Route: PO, Drug form: TAB, Daily, Dosing Weight 100, kg, Start date: 12/12/18 9:00:00CDT, Duration: 30 day, Stop date: 01/10/19 9:00:00 CDT Notes: (Same as: Vitamin C) Start Date: 12/12/18 Stop Date: 12/16/18 Status: Discontinuedvitamin E 400 IntlUnit, 1 cap, Route: PO, Drug form: CAP, QSun, Dosing Weight 100, kg, Start date: 12/15/18 9:00:00 CDT, Duration: 30 day, Stop date: 01/12/19 9:00:00 CDT Start Date: 12/15/18 Stop Date: 12/16/18 Status: DiscontinuedXarelto 20 mg, 1 tab, Route: PO, Drug form: TAB, QPM, Dosing Weight 97.727, kg, Start date: 12/11/18 17:00:00 CDT, Duration: 30 day, Stop date: 01/09/19 17:00:00 CDT Notes: (Same as: Xarelto)Administer with food Start Date: 12/11/18 Stop Date: 12/16/18 Status: Discontinued Results Most recent to oldest 1 2 3 [Reference Range]: Neutrophils # [1.5-8.1 2.3 K/CMM 2.8 K/CMM 2.7 K/CMM K/CMM] (12/16/18 12:43 AM) (12/15/18 1:02 AM) (12/14/18 4:52 AM) Lymphocytes # [1.0-5.5 0.9 K/CMM 0.9 K/CMM 0.7 K/CMM K/CMM] *LOW* *LOW* *LOW* (12/16/18 12:43 AM) (12/15/18 1:02 AM) (12/14/18 4:52 AM) Monocytes # [0.0-0.8 K/CMM] 0.7 K/CMM 0.8 K/CMM 0.8 K/CMM (12/16/18 12:43 AM) (12/15/18 1:02 AM) (12/14/18 4:52 AM) Eosinophils # [0.0-0.5 0.2 K/CMM 0.2 K/CMM 0.2 K/CMM K/CMM] (12/16/18 12:43 AM) (12/15/18 1:02 AM) (12/14/18 4:52 AM) Basophils # [0.0-0.2 K/CMM] 0.1 K/CMM (12/15/18 1:02 AM) BNP [<=100 pg/mL] 251 pg/mL *HI* (12/11/18 2:45 PM) eGFR 67 mL/min/1.73m2 1 58 mL/min/1.73m2 2 60 mL/min/1.73m2 3 *NA* *NA* *NA* (12/16/18 12:43 AM) (12/15/18 9:11 AM) (12/15/18 1:02 AM) A/G Ratio [0.7-1.6] 0.9 (12/11/18 2:45 PM) Albumin Lvl [3.5-5.0 g/dL] 3.4 g/dL *LOW* (12/11/18 2:45 PM) Alk Phos [39-136 unit/L] 58 unit/L (12/11/18 2:45 PM) ALT [0-65 unit/L] 31 unit/L (12/11/18 2:45 PM) AGAP [10.0-20.0 mEq/L] 11.9 mEq/L 9.8 mEq/L 9.0 mEq/L (12/16/18 12:43 AM) *LOW* *LOW* (12/15/18 9:11 AM) (12/15/18 1:02 AM) AST [0-37 unit/L] 32 unit/L (12/11/18 2:45 PM) B/C Ratio [6-25] 21 (12/11/18 2:45 PM) Basophils [0.0-1.0 %] 1.1 % 1.1 % 0.9 % *HI* *HI* (12/14/18 4:52 AM) (12/16/18 12:43 AM) (12/15/18 1:02 AM) BUN [7-22 mg/dL] 23 mg/dL 24 mg/dL 27 mg/dL *HI* *HI* *HI* (12/16/18 12:43 AM) (12/15/18 9:11 AM) (12/15/18 1:02 AM) Calcium Lvl [8.5-10.5 9.0 mg/dL 9.8 mg/dL 8.9 mg/dL mg/dL] (12/16/18 12:43 AM) (12/15/18 9:11 AM) (12/15/18 1:02 AM) Chloride Lvl [95-109 mEq/L] 104 mEq/L 104 mEq/L 108 mEq/L (12/16/18 12:43 AM) (12/15/18 9:11 AM) (12/15/18 1:02 AM) CO2 [24-32 mEq/L] 28 mEq/L 29 mEq/L 27 mEq/L (12/16/18 12:43 AM) (12/15/18 9:11 AM) (12/15/18 1:02 AM) Creatinine Lvl [0.50-1.40 1.16 mg/dL 1.31 mg/dL 1.26 mg/dL mg/dL] (12/16/18 12:43 AM) (12/15/18 9:11 AM) (12/15/18 1:02 AM) Eosinophils [0.0-4.0 %] 4.7 % 4.4 % 5.3 % *HI* *HI* *HI* (12/16/18 12:43 AM) (12/15/18 1:02 AM) (12/14/18 4:52 AM) Globulin [2.7-4.2 g/dL] 3.6 g/dL (12/11/18 2:45 PM) Glucose Lvl [70-99 mg/dL] 105 mg/dL 159 mg/dL 104 mg/dL *HI* *HI* *HI* (12/16/18 12:43 AM) (12/15/18 9:11 AM) (12/15/18 1:02 AM) Hct [42.0-54.0 %] 43.7 % 43.9 % 43.0 % (12/16/18 12:43 AM) (12/15/18 1:02 AM) (12/14/18 4:52 AM) Hgb [14.0-18.0 g/dL] 14.7 g/dL 14.8 g/dL 14.5 g/dL (12/16/18 12:43 AM) (12/15/18 1:02 AM) (12/14/18 4:52 AM) INR [0.85-1.17] 2.02 1.45 *HI* *HI* (12/15/18 1:02 AM) (12/11/18 2:45 PM) Potassium Lvl [3.5-5.1 3.9 mEq/L 3.8 mEq/L 4.0 mEq/L mEq/L] (12/16/18 12:43 AM) (12/15/18 9:11 AM) (12/15/18 1:02 AM) Lymphocytes [20.0-40.0 %] 21.0 % 19.9 % 16.0 % (12/16/18 12:43 AM) *LOW* *LOW* (12/15/18 1:02 AM) (12/14/18 4:52 AM) Macrocyte [None Seen] 1+ *ABN* (12/15/18 1:02 AM) MCH [27.0-31.0 pg] 33.2 pg 33.8 pg 33.5 pg *HI* *HI* *HI* (12/16/18 12:43 AM) (12/15/18 1:02 AM) (12/14/18 4:52 AM) MCHC [32.0-36.0 g/dL] 33.5 g/dL 33.6 g/dL 33.8 g/dL (12/16/18 12:43 AM) (12/15/18 1:02 AM) (12/14/18 4:52 AM) MCV [80.0-94.0 fL] 98.9 fL 100.5 fL 99.1 fL *HI* *HI* *HI* (12/16/18 12:43 AM) (12/15/18 1:02 AM) (12/14/18 4:52 AM) Magnesium Lvl [1.8-2.4 2.3 mg/dL 2.4 mg/dL 2.4 mg/dL mg/dL] (12/16/18 12:43 AM) (12/15/18 1:02 AM) (12/14/18 4:52 AM) Monocytes [2.0-12.0 %] 17.8 % 16.4 % 17.7 % *HI* *HI* *HI* (12/16/18 12:43 AM) (12/15/18 1:02 AM) (12/14/18 4:52 AM) MPV [7.4-10.4 fL] 9.8 fL 9.6 fL 9.9 fL (12/16/18 12:43 AM) (12/15/18 1:02 AM) (12/14/18 4:52 AM) Sodium Lvl [135-145 mEq/L] 140 mEq/L 139 mEq/L 140 mEq/L (12/16/18 12:43 AM) (12/15/18 9:11 AM) (12/15/18 1:02 AM) Phosphorus [2.5-4.5 mg/dL] 4.7 mg/dL 4.7 mg/dL 4.6 mg/dL *HI* *HI* *HI* (12/16/18 12:43 AM) (12/15/18 1:02 AM) (12/14/18 4:52 AM) Platelet [133-450 K/CMM] 149 K/CMM 149 K/CMM 152 K/CMM (12/16/18 12:43 AM) (12/15/18 1:02 AM) (12/14/18 4:52 AM) Segs [45.0-75.0 %] 55.4 % 58.2 % 60.1 % (12/16/18 12:43 AM) (12/15/18 1:02 AM) (12/14/18 4:52 AM) Total Protein [6.4-8.4 7.0 g/dL g/dL] (12/11/18 2:45 PM) PT [12.0-14.7 seconds] 22.4 seconds 17.3 seconds *HI* *HI* (12/15/18 1:02 AM) (12/11/18 2:45 PM) PTT [22.9-35.8 seconds] 40.8 seconds 34.8 seconds *HI* (12/11/18 2:45 PM) (12/15/18 1:02 AM) RBC [4.70-6.10 M/CMM] 4.42 M/CMM 4.37 M/CMM 4.34 M/CMM *LOW* *LOW* *LOW* (12/16/18 12:43 AM) (12/15/18 1:02 AM) (12/14/18 4:52 AM) RDW [11.5-14.5 %] 14.8 % 14.7 % 14.9 % *HI* *HI* *HI* (12/16/18 12:43 AM) (12/15/18 1:02 AM) (12/14/18 4:52 AM) Bili Total [0.2-1.3 mg/dL] 0.4 mg/dL (12/11/18 2:45 PM) WBC [3.7-10.4 K/CMM] 4.1 K/CMM 4.7 K/CMM 4.4 K/CMM (12/16/18 12:43 AM) (12/15/18 1:02 AM) (12/14/18 4:52 AM) Ca Ion WB [1.05-1.25 0.98 mMol/L mMol/L] *LOW* (12/15/18 1:02 AM) Ca Norm WB [1.05-1.25 1.00 mMol/L mMol/L] *LOW* (12/15/18 1:02 AM) 1Result Comment: The eGFR is calculated [...] has not had an ablation in the [id number] knee Social History Social History Type Response [...]
[2019-03-12] MEDS ORDERED: ALBUTEROL 2.5 MG/3 ML NEB SOL ONE (16:42)
[2019-03-12] MEDS ORDERED: IPRATROPIUM BROM 0.5MG/2.5ML ONE (16:43)
[2019-03-12] MEDS ORDERED: LEVALBUTEROL 1.25 MG/3 ML NEB ONE (16:51)
[2019-03-12 17:24] LABS: Absolute Lymphocytes (CBC) 0.4 K/uL (0.7-4.9); Basophils % 0.1 % (0-1.3); Hematocrit 41.3 % (39.6-49.0); MPV 9.9 fL (7.6-11.3); RBC Red Blood Cell Count 4.02 M/uL (4.33-5.43)
--- NOTE | 2019-03-12 17:25 | RAD REPORT ---
EXAM DESCRIPTION: RAD - Chest Single View - 03/12/2019 5:16 pm CLINICAL HISTORY: Cough;Dyspnea Chest pain. COMPARISON: <Comparisons> FINDINGS: Portable technique limits examination quality. Ill-defined opacity is present in the right lung base with a small right pleural effusion, suggesting pneumonia. The heart is moderately enlarged in size. No displaced fractures. IMPRESSION: Mild right lower lobe pneumonia.
[2019-03-12 17:26] LABS: Protime INR 1.91
[2019-03-12 17:37] LABS: BUN Blood Urea Nitrogen 32 mg/dL (7-18); Bicarbonate 23 mmol/L (21-32); Glucose Level 136 mg/dL (74-106); Magnesium 2.2 mg/dL (1.8-2.4); NT PRO-BNP 13185 pg/mL (<125); Potassium 4.4 mmol/L (3.5-5.1); Sodium Level 141 mmol/L (136-145); Troponin (Emerg Dept Use Only) < 0.02 ng/mL (0.0-0.045)
[2019-03-12] MEDS ORDERED: NA CHLORIDE 0.9% 250 ML ONE (17:39)
[2019-03-12] MEDS ORDERED: CEFTRIAXONE/SWI 1gm 1 GM/10 ML SYR ONE (17:39)
[2019-03-12] MEDS ORDERED: AZITHROMYCIN 500 MG INJ IVPB ONE (17:39)
--- NOTE | 2019-03-12 17:39 | ER ---
Nurse's Notes [facility] Name: Jad Tam Age: 63 yrs Sex: Male : 1955 Arrival Date: 03/12/2019 Time: 16:18 Bed 15 Private MD: Diagnosis: Pneumonia, unspecified organism Presentation: 03/12 16:23 Presenting complaint: Patient states: i started with SOB yesterday with coughing, it tw2 has gotten worse today, i am coughing up yellow green stuff at this time. Transition of care: patient was not received from another setting of care. Onset of symptoms was March 12, 2019. Risk Assessment: Do you want to hurt yourself or someone else? Patient reports no desire to harm self or others. Initial Sepsis Screen: Does the patient meet any 2 criteria? RR > 20 per min. No. Patient's initial sepsis screen is negative. Does the patient have a suspected source of infection? Yes: Productive cough/pneumonia. Care prior to arrival: None. 16:23 Method Of Arrival: Wheelchair tw2 16:23 Acuity: CJ 2 tw2 Triage Assessment: 16:31 General: Appears in no apparent distress. Behavior is calm, cooperative, appropriate tw2 for age. Pain: Denies pain. Respiratory: Reports shortness of breath at rest on exertion cough that is productive, Onset: The symptoms/episode began/occurred yesterday, the patient has moderate shortness of breath. Historical: - Allergies: 16:30 Demerol; tw2 - Home Meds: 16:30 Silvadene 1 % Topical crea once daily [Active]; metoprolol succinate 100 mg oral Tb24 1 tw2 tab once daily [Active]; diltiazem HCl 30 mg Oral tab 1 tab 4 times per day [Active]; potassium chloride 20 mEq Oral pack 1 packet 2 times per day [Active]; furosemide 80 mg Oral tab 1 tab once daily [Active]; Diovan HCT 80-12.5 mg Oral tab 1 tab once daily [Active]; Crestor 10 mg oral tab 1 tab once daily [Active]; Xarelto 20 mg oral tab 1 tab once daily [Active]; - PMHx: 16:30 CHF; Atrial Fib; Hypertension; psoriasis; tw2 - PSHx: 16:30 b/l hip replacement; left knee surgery; Tonsillectomy; Adenoids; tw2 - Immunization history:: Adult Immunizations. - Social history:: Smoking status: Patient/guardian denies using tobacco, Patient uses alcohol, only on a social basis. " 2 or 3 times a week". - Ebola Screening: : Patient denies exposure to infectious person. Screenin:39 Abuse screen: Denies threats or abuse. Denies injuries from another. Nutritional rv screening: No deficits noted. Tuberculosis screening: No symptoms or risk factors identified. Fall Risk Gait- Weak (10 pts.). Assessment: 17:32 General: Appears in no apparent distress. comfortable, Behavior is calm, cooperative. mg2 Pain: Denies pain. Neuro: Level of Consciousness is awake, alert, obeys commands, Oriented to person, place, time, situation. Cardiovascular: Rhythm is atrial fibrillation. Respiratory: Airway is patent Respiratory effort is even, unlabored, Respiratory pattern is regular, symmetrical, Breath sounds with wheezes. GI: No signs and/or symptoms were reported involving the gastrointestinal system. : No signs and/or symptoms were reported regarding the genitourinary system. EENT: No signs and/or symptoms were reported regarding the EENT system. Derm: Skin is intact, is healthy with good turgor, Skin is pale. Musculoskeletal: Circulation, motion, and sensation intact. Capillary refill < 3 seconds. 18:22 Reassessment: ed provider informed the patient about the need for admission. dr espinal mg2 -hospitalist at bedside examining the patient. 19:15 Reassessment: Patient appears in no apparent distress at this time. Patient and/or jb4 family updated on plan of care and expected duration. Pain level reassessed. Patient is alert, oriented x 3, equal unlabored respirations, skin warm/dry/pink. Pt transferred to Room 410 on oxygen via wheelchair with RN. Vital Signs: 16:24 BP 123 / 73; Pulse 79; Resp 22; Temp 97.9(TE); Pulse Ox 89% on R/A; Weight 103.42 kg tw2 (R); Height 5 ft. 9 in. (175.26 cm) (R); Pain 2/10; 17:35 BP 124 / 79; Pulse 79; Resp 18; Pulse Ox 96% on 2 lpm NC; mg2 18:56 BP 122 / 78; Pulse 80; Resp 18; Pulse Ox 96% on 2 lpm NC; mg2 19:15 BP 118 / 75; Pulse 85; Resp 24; Pulse Ox 98% on 2.5 lpm NC; jb4 16:24 Body Mass Index 33.67 (103.42 kg, 175.26 cm) tw2 16:24 pt placed on o2 via nc at 2L , pt at 96% at this time. tw2 ED Course: 16:18 Patient arrived in ED. mr 16:24 Triage completed. tw2 16:25 Arm band placed on. tw2 16:26 Snehal Deutsch FNP-C is PHCP. kb 16:26 Donaldo Yuan MD is Attending Physician. kb 16:32 David Marks RN is Primary Nurse. rv 16:47 EKG done, by truck engine technician. reviewed by Snehal CA. sm3 17:00 Inserted saline lock: 20 gauge in right forearm, using aseptic technique. Blood mg2 collected. 17:15 First set of blood cultures drawn by me, Second set of blood cultures drawn by me. mg2 17:18 XRAY Chest (1 view) In Process Unspecified. EDMS 17:34 Patient has correct armband on for positive identification. vehicle monitor technician on. Pulse mg2 ox on. NIBP on. Door closed. Warm blanket given. 17:34 No provider procedures requiring assistance completed. mg2 17:38 Elise Espinal MD is Hospitalizing Provider. kb 18:37 Patient admitted, IV remains in place. mg2 Administered Medications: 16:48 Drug: Xopenex (3) 1.25 mg Route: Inhalation; mg2 18:23 Follow up: Response: No adverse reaction mg2 16:48 Drug: AtroVENT Aerosol 0.5 mg Route: Inhalation; mg2 18:23 Follow up: Response: No adverse reaction mg2 17:44 Drug: Rocephin 1 grams Route: IV; Rate: calculated rate; Site: right forearm; mg2 18:23 Follow up: Response: No adverse reaction; IV Status: Completed infusion mg2 17:44 Drug: Zithromax 500 mg Route: IVPB; Infused Over: 1 hrs; Site: right forearm; mg2 Outcome: 17:39 Decision to Hospitalize by Provider. kb 18:55 Admitted to Tele accompanied by tech, via wheelchair, room 410, with oxygen, with mg2 chart, Report called to RABIA Craft 18:55 Condition: stable 18:55 Instructed on the need for admit, Demonstrated understanding of instructions. 19:30 Patient left the ED. jb4 Signatures: Dispatcher [employer] EDSnehal Burgos, DEALER ACCOUNTS INVESTIGATOR-Nguyen DEALER ACCOUNTS INVESTIGATOR-Kathe Rodriguez mr Trinidad Elizondo, RN RN tw2 Jad Grant RN RN jb4 Wicho Maynard RN RN mg2 Leeann Gil 3 David Marks RN RN rv
--- NOTE | 2019-03-12 17:40 | EDPHYS ---
Physician Documentation [facility] Name: Jad Tam Age: 63 yrs Sex: Male : 1955 Arrival Date: 03/12/2019 Time: 16:18 Bed 15 Private MD: ED Physician Donaldo Yuan HPI: 03/12 17:16 This 63 yrs old Male presents to ER via Wheelchair with complaints of kb Shortness Of Breath. 17:16 The patient has shortness of breath at rest, and the patient has a history of CHF. kb Onset: The symptoms/episode began/occurred yesterday. Duration: The symptoms are continuous. The patient's shortness of breath is aggravated by exertion, light activity. Associated signs and symptoms: Pertinent positives: productive cough. Severity of symptoms: At their worst the symptoms were moderate in the emergency department the symptoms are unchanged. The patient has not experienced similar symptoms in the past. The patient has not recently seen a physician. Historical: - Allergies: 16:30 Demerol; tw2 - Home Meds: 16:30 Silvadene 1 % Topical crea once daily [Active]; metoprolol succinate 100 mg oral Tb24 1 tw2 tab once daily [Active]; diltiazem HCl 30 mg Oral tab 1 tab 4 times per day [Active]; potassium chloride 20 mEq Oral pack 1 packet 2 times per day [Active]; furosemide 80 mg Oral tab 1 tab once daily [Active]; Diovan HCT 80-12.5 mg Oral tab 1 tab once daily [Active]; Crestor 10 mg oral tab 1 tab once daily [Active]; Xarelto 20 mg oral tab 1 tab once daily [Active]; - PMHx: 16:30 CHF; Atrial Fib; Hypertension; psoriasis; tw2 - PSHx: 16:30 b/l hip replacement; left knee surgery; Tonsillectomy; Adenoids; tw2 - Immunization history:: Adult Immunizations. - Social history:: Smoking status: Patient/guardian denies using tobacco, Patient uses alcohol, only on a social basis. " 2 or 3 times a week". - Ebola Screening: : Patient denies exposure to infectious person. ROS: 17:14 ENT: Negative for injury, pain, and discharge, Neck: Negative for injury, pain, and kb swelling, Cardiovascular: Negative for chest pain, palpitations, and edema, Abdomen/GI: Negative for abdominal pain, nausea, vomiting, diarrhea, and constipation, Back: Negative for injury and pain, : Negative for injury, bleeding, discharge, and swelling, MS/Extremity: Negative for injury and deformity, Skin: Negative for injury, rash, and discoloration, Neuro: Negative for headache, weakness, numbness, tingling, and seizure. 17:14 Constitutional: Positive for fatigue. 17:14 Respiratory: Positive for cough, with green sputum, dyspnea on exertion, shortness of breath, wheezing. Exam: 17:15 Constitutional: This is a well developed, well nourished patient who is awake, alert, kb and in no acute distress. Head/Face: Normocephalic, atraumatic. ENT: Nares patent. No nasal discharge, no septal abnormalities noted. Tympanic membranes are normal and external auditory canals are clear. Oropharynx with no redness, swelling, or masses, exudates, or evidence of obstruction, uvula midline. Mucous membranes moist. Neck: Trachea midline, no thyromegaly or masses palpated, and no cervical lymphadenopathy. Supple, full range of motion without nuchal rigidity, or vertebral point tenderness. No Meningismus. Chest/axilla: Normal chest wall appearance and motion. Nontender with no deformity. No lesions are appreciated. Cardiovascular: Regular rate and rhythm with a normal S1 and S2. No gallops, murmurs, or rubs. Normal PMI, no JVD. No pulse deficits. Abdomen/GI: Soft, non-tender, with normal bowel sounds. No distension or tympany. No guarding or rebound. No evidence of tenderness throughout. Skin: Warm, dry with normal turgor. Normal color with no rashes, no lesions, and no evidence of cellulitis. MS/ Extremity: Pulses equal, no cyanosis. Neurovascular intact. Full, normal range of motion. Neuro: Awake and alert, GCS 15, oriented to person, place, time, and situation. Cranial nerves II-XII grossly intact. Motor strength 5/5 in all extremities. Sensory grossly intact. Cerebellar exam normal. Normal gait. 17:15 Respiratory: mild respiratory distress is noted, Respirations: normal, Breath sounds: rhonchi, that are mild, that are moderate, are located in both bases, wheezing: expiratory that is moderate, is heard diffusely. Vital Signs: 16:24 BP 123 / 73; Pulse 79; Resp 22; Temp 97.9(TE); Pulse Ox 89% on R/A; Weight 103.42 kg tw2 (R); Height 5 ft. 9 in. (175.26 cm) (R); Pain 2/10; 17:35 BP 124 / 79; Pulse 79; Resp 18; Pulse Ox 96% on 2 lpm NC; mg2 18:56 BP 122 / 78; Pulse 80; Resp 18; Pulse Ox 96% on 2 lpm NC; mg2 19:15 BP 118 / 75; Pulse 85; Resp 24; Pulse Ox 98% on 2.5 lpm NC; jb4 16:24 Body Mass Index 33.67 (103.42 kg, 175.26 cm) tw2 16:24 pt placed on o2 via nc at 2L , pt at 96% at this time. tw2 MDM: 16:32 Patient medically screened. kb 17:14 Data reviewed: vital signs, nurses notes. Data interpreted: Pulse oximetry: on room air kb is 89 %. Interpretation: hypoxia. Plan: O2 by NC applied. 17:36 Counseling: I had a detailed discussion with the patient and/or guardian regarding: the kb historical points, exam findings, and any diagnostic results supporting the discharge/admit diagnosis, lab results, radiology results, the need for further work-up and treatment in the hospital. Physician consultation: Elise Espinal MD was contacted at 17:37, regarding admission, to the telemetry unit. and will see patient in ED, shortly. 03/12 16:38 Order name: Magnesium; Complete Time: 17:39 kb 03/12 16:38 Order name: Basic Metabolic Panel; Complete Time: 17:39 kb 03/12 16:38 Order name: CBC with Diff; Complete Time: 17:53 kb 03/12 16:38 Order name: NT PRO-BNP; Complete Time: 17:39 kb 03/12 16:38 Order name: PT-INR; Complete Time: 17:47 kb 03/12 16:38 Order name: Troponin (emerg Dept Use Only); Complete Time: 17:39 kb 03/12 16:38 Order name: XRAY Chest (1 view); Complete Time: 17:30 kb 03/12 16:38 Order name: Blood Culture Adult (2) kb 03/12 16:38 Order name: Lactate; Complete Time: 17:53 kb 03/12 16:38 Order name: Procalcitonin; Complete Time: 18:30 kb 03/12 17:31 Order name: CBC Smear Scan; Complete Time: 17:53 EDMS 03/12 16:38 Order name: EKG; Complete Time: 16:40 kb 03/12 16:38 Order name: Cardiac monitoring; Complete Time: 16:52 kb 03/12 16:38 Order name: EKG - Nurse/Tech; Complete Time: 16:52 kb 03/12 16:38 Order name: IV Saline Lock; Complete Time: 17:30 kb 03/12 16:38 Order name: Labs collected and sent; Complete Time: 17:30 kb 03/12 16:38 Order name: O2 Per Protocol; Complete Time: 16:52 kb 03/12 16:38 Order name: O2 Sat Monitoring; Complete Time: 16:52 kb Administered Medications: 16:48 Drug: Xopenex (3) 1.25 mg Route: Inhalation; mg2 18:23 Follow up: Response: No adverse reaction mg2 16:48 Drug: AtroVENT Aerosol 0.5 mg Route: Inhalation; mg2 18:23 Follow up: Response: No adverse reaction mg2 17:44 Drug: Rocephin 1 grams Route: IV; Rate: calculated rate; Site: right forearm; mg2 18:23 Follow up: Response: No adverse reaction; IV Status: Completed infusion mg2 17:44 Drug: Zithromax 500 mg Route: IVPB; Infused Over: 1 hrs; Site: right forearm; mg2 Disposition: 03/13 06:58 Co-signature as Attending Physician, Donaldo Yuan MD. rn Disposition: 03/12/19 17:39 Hospitalization ordered by Elise Espinal for Inpatient Admission. Preliminary diagnosis is Pneumonia, unspecified organism. - Bed requested for Telemetry/MedSurg (Inpatient). - Status is Inpatient Admission. jb4 - Condition is Stable. - Problem is new. - Symptoms are unchanged. UTI on Admission? No Signatures: Dispatcher [employer] EDNJ Snehal Deutsch, BALANCE WHEEL ARM BURNISHER-C BALANCE WHEEL ARM BURNISHER-Ckb Donaldo Yuan MD MD rn Martinez, Eric em1 Trinidad Elizondo RN RN tw2 Jad Grant RN RN jb4 Wicho Maynard RN RN mg2 Corrections: (The following items were deleted from the chart) 03/12 17:17 17:14 Respiratory: Positive for cough, dyspnea on exertion, shortness of breath, kb wheezing, kb 18:22 17:39 Hospitalization Ordered by Elise Espinal MD for Inpatient Admission. Preliminary em1 diagnosis is Pneumonia, unspecified organism. Bed requested for Telemetry/MedSurg (Inpatient). Status is Inpatient Admission. Condition is Stable. Problem is new. Symptoms are unchanged. UTI on Admission? No. kb 19:30 18:22 03/12/2019 17:39 Hospitalization Ordered by Elise Espinal MD for Inpatient jb4 Admission. Preliminary diagnosis is Pneumonia, unspecified organism. Bed requested for Telemetry/MedSurg (Inpatient). Status is Inpatient Admission. Condition is Stable. Problem is new. Symptoms are unchanged. UTI on Admission? No. em1
[2019-03-12 17:51] LABS: Platelet Estimate ADEQ; Urine White Blood Cell Casts OK
[2019-03-12 17:52] LABS: Blood Morphology Comment NOT SEEN (NOT SEEN)
--- NOTE | 2019-03-12 18:20 | P.HP ---
Certification for Inpatient Patient admitted to: Inpatient Practitioner: I am a practitioner with admitting privileges, knowledge of patient current condition, hospital course, and medical plan of care. Services: Services provided to patient in accordance with Admission requirements found in Title 42 Section 412.3 of the Code of Federal Regulations Patient History Date of Service: 03/12/19 Primary Care Provider: Dr. Mcdaniels, Proposal Rep: Dr. Joya ([facility]) Reason for admission: Shortness of breath History of Present Illness: This is a 63-year-old male with past medical history of CHF, atrial fibrillation , hypertension admitted for shortness of breath. Per patient, shortness of breath started at rest and has been going on for about 1 day. He also complains of orthopnea and nausea. No alleviating factors. He did take Robitussin that helped his cough. He did not take any extra Lasix to help with the shortness of breath. He denies any chest pain at this time, headache, vision changes, lightheadedness, fevers/chills, other GI or complaints. The shortness of breath was getting worse therefore he came to the emergency room. In the ER, his blood pressure was 123/73, heart rate of 79, respirations of 22, afebrile at 97.9 but satting 89% on room air. This improved to 96% on 2 L. patient states he is not on any home oxygen. His lab work was remarkable for elevated creatinine of 1.54, elevated BUN of 32 along with elevated blood sugars 136[place] [address]. His WBC count elevated to 12.3. His lactic acid was also elevated to 2.3 and procalcitonin was pending. His chest x-ray was significant for a mild right lower lobe pneumonia. In the ER, he received nebulizer treatments, azithromycin and Rocephin. The time of my exam, he is alert oriented x3, in mild respiratory distress, satting well on 2 L of oxygen and otherwise hemodynamically stable. Home medications list reviewed: Yes - Past Medical/Surgical History -: Congestive heart failure -: Atrial fib -: Hypertension - Social History Smoking Status: Never smoker Alcohol use: No CD- Drugs: No Place of Residence: Home Review of Systems 10-point ROS is otherwise unremarkable Physical Examination - Physical Exam General: Alert, Oriented x3, Mild distress HEENT: Atraumatic, PERRLA, Mucous membr. moist/pink, EOMI, Sclerae nonicteric Neck: Supple, 2+ carotid pulse no bruit, No LAD, Without JVD or thyroid abnormality Respiratory: Dull, Expiratory wheezes Cardiovascular: Normal S1 S2, Irregular heart rate/rhythm (Rate controlled, atrial fib) Gastrointestinal: Normal bowel sounds, No tenderness Musculoskeletal: No tenderness Integumentary: No rashes Neurological: Normal gait, Normal speech, Normal strength at 5/5 x4 extr, Normal tone, Normal affect Lymphatics: No axilla or inguinal lymphadenopathy - Studies Laboratory Data (last 24 hrs) 03/12/19 17:00: PT 22.0 H, INR 1.91 03/12/19 17:00: WBC 12.3 H, Hgb 13.4 L, Hct 41.3, Plt Count 205 03/12/19 17:00: Sodium 141, Potassium 4.4, BUN 32 H, Creatinine 1.54 H, Glucose 136 H, Magnesium 2.2 Assessment and Plan - Problems (Diagnosis) (1) Acute respiratory failure Current Visit: Yes Status: Acute Plan: Likely secondary to pneumonia along with acute CHF exacerbation -will diurese with IV Lasix -pneumonia treatment as listed below -continue to provide supportive care -oxygen as needed. We will wean as tolerated -nebulizer treatments as needed Qualifiers: Respiratory failure complication: hypoxia Qualified Code(s): J96.01 - Acute respiratory failure with hypoxia (2) Pneumonia Current Visit: Yes Status: Acute Plan: Chest x-ray consistent with right lower lobe pneumonia -pneumonia severity index score of 93 points, risk class IV. 8.2 9.3% mortality rate, recommend hospitalization. -continue IV Rocephin and azithromycin -repeat chest x-ray tomorrow -monitor vital signs and labs closely -provide oxygen as needed, will continue to wean as tolerated. -if no improvement, will consider pulmonology consult Qualifiers: Pneumonia type: due to unspecified organism Laterality: right Lung location: lower lobe of lung Qualified Code(s): J18.1 - Lobar pneumonia, unspecified organism (3) Congestive heart failure Current Visit: Yes Status: Acute Plan: Patient with acute on chronic CHF exacerbation -diuresis with IV Lasix -fluid restriction -daily weights -Will restart home medications as tolerated Qualifiers: Heart failure type: unspecified Heart failure chronicity: acute on chronic Qualified Code(s): I50.9 - Heart failure, unspecified (4) Atrial fibrillation Current Visit: No Status: Chronic Plan: Patient with a history of chronic atrial fibrillation, has an external defibrillator/monitor -currently rate controlled -restart home diltiazem, metoprolol and amiodarone -restart home Xarelto -monitor on tele Qualifiers: Atrial fibrillation type: chronic Qualified Code(s): I48.2 - Chronic atrial fibrillation (5) Acute kidney injury Current Visit: Yes Status: Acute Plan: Likely secondary to volume overload? -continue IV diuresis -avoid other nephrotoxic medications -monitor via labs in the morning -if no improvement, will get nephrology consult (6) Hypertension Current Visit: No Status: Chronic Plan: Stable blood pressures at this time. -will restart home medications -continue to monitor blood pressures Qualifiers: Hypertension type: essential hypertension Qualified Code(s): I10 - Essential (primary) hypertension (7) Hyperlipidemia Current Visit: Yes Status: Acute Plan: Continue statin Qualifiers: Hyperlipidemia type: unspecified Qualified Code(s): E78.5 - Hyperlipidemia , unspecified - Plan DVT prophylaxis: Xarelto, home med GI prophylaxis: None Diet: Heart healthy, fluid restriction Disposition: Admit to floor with tele. Pending symptomatic improvement Discharge Plan: Home Plan to discharge in: Greater than 2 days - Advance Directives Does patient have a Living Will: No Does patient have a Durable POA for Healthcare: No Time Spent Managing Pts Care (In Minutes): 55
[2019-03-12] MEDS ORDERED: ONDANSETRON 4 MG/2 ML VIAL IV PRN (19:31)
[2019-03-12 20:01] VITALS: BMI 33.6
[2019-03-12] MEDS: METOPROLOL TAR 50 MG TAB PO SCH (20:05)
[2019-03-12] MEDS: ROSUVASTATIN 10 MG TAB PO SCH (20:05)
[2019-03-12] MEDS: ALBUTEROL 2.5 MG/3 ML NEB SOL NEB SCH (20:30)
[2019-03-12] MEDS: IPRATROPIUM BROM 0.5MG/2.5ML NEB SCH (20:30)
[2019-03-13] MEDS: IPRATROPIUM BROM 0.5MG/2.5ML NEB SCH ×6 (00:05→20:00)
[2019-03-13] MEDS: ALPRAZOLAM 0.25 MG TABLET PO PRN ×2 (00:34→21:08)
[2019-03-13] MEDS: ALBUTEROL 2.5 MG/3 ML NEB SOL NEB SCH ×4 (04:00→20:00)
[2019-03-13 04:17] LABS: Absolute Lymphocytes (CBC) 0.4 K/uL (0.7-4.9); Basophils % 0.1 % (0-1.3); Hematocrit 34.8 % (39.6-49.0); Lymphocytes % 6.4 % (15.3-44.8); MPV 9.9 fL (7.6-11.3); RBC Red Blood Cell Count 3.38 M/uL (4.33-5.43)
[2019-03-13 04:27] LABS: Albumin 3.1 g/dL (3.4-5.0); Bilirubin Total 0.8 mg/dL (0.2-1.0); Protein, Total 6.5 g/dL (6.4-8.2)
[2019-03-13] MEDS ORDERED: CEFTRIAXONE/SWI 1gm 1 GM/10 ML SYR ONE (04:56)
[2019-03-13] MEDS ORDERED: CEFTRIAXONE 1 GM/NS 50 ML 1 GM/50 ML BAG IV SCH (05:00)
--- NOTE | 2019-03-13 07:34 | EKG ---
Test Date: 2019-03-12 Test Time: 16:40:44 Film Technician: GORAN MEASUREMENT RESULTS: Intervals: Rate: 79 NH: QRSD: 152 QT: 490 QTc: 561 [place]: P: NH: QRS: -82 T: 78 INTERPRETIVE STATEMENTS: Atrial fibrillation Left axis deviation Right bundle branch block Anteroseptal infarct, age undetermined Abnormal ECG No previous ECG available for comparison Electronically Signed On 03-13-19 07:33:27 CDT by Prosper Valdivia
[2019-03-13] MEDS: FUROSEMIDE 40 MG/4 ML VIAL IV SCH ×2 (08:22→17:34)
[2019-03-13] MEDS: METOPROLOL TAR 50 MG TAB PO SCH ×2 (08:22→21:00)
[2019-03-13] MEDS: AMIODARONE HCL 200 MG TAB PO SCH (08:22)
[2019-03-13] MEDS: VALSARTAN 80 MG TAB PO SCH (08:22)
[2019-03-13] MEDS: AZITHROMYCIN IV 500 MG in NA CHLORIDE 0.9% 250 ML IVPB SCH (08:23)
--- NOTE | 2019-03-13 08:28 | RAD REPORT ---
EXAM DESCRIPTION: Myriam Paul [place] (2 Views)03/13/2019 7:29 am CLINICAL HISTORY: Cough COMPARISON: March 12 FINDINGS: Mild to moderate right lung opacities unchanged. Small right pleural effusion. There may be a small left pleural effusion. The heart remains enlarged IMPRESSION: No significant change in a mild to moderate right pneumonia
--- NOTE | 2019-03-13 11:51 | P.PN ---
Subjective Date of Service: 03/13/19 Primary Care Provider: Dr. Mcdaniels, Chef Head: Dr. Joya ([facility]) Chief Complaint: Shortness of breath Subjective: Improving Patient seen and examined at bedside. Chart reviewed and case discussed with nursing staff. Family at bedside. Patient reports slight improvement in wheezing adn breathing. Urinating well. I&O's reviewed No acute events noted overnight. No new complaints this am. Review of Systems 10-point ROS is otherwise unremarkable Physical Examination - Vital Signs Temperature: 97 F Blood Pressure: 121/65 Pulse: 69 Respirations: 18 Pulse Ox (%): 94 - Physical Exam General: Alert, In no apparent distress, Oriented x3 HEENT: Atraumatic, PERRLA, EOMI Neck: Supple, JVD not distended Respiratory: Dull, Expiratory wheezes Cardiovascular: Normal S1 S2, Edema (1+ bilteral LE), Irregular heart rate/ rhythm (rate controlled; ) Gastrointestinal: Normal bowel sounds, No tenderness Musculoskeletal: No tenderness Integumentary: No rashes Neurological: Normal speech, Normal tone, Normal affect - Studies Laboratory Data (last 24 hrs) 03/12/19 17:00: PT 22.0 H, INR 1.91 03/12/19 17:00: WBC 12.3 H, Hgb 13.4 L, Hct 41.3, Plt Count 205 03/12/19 17:00: Sodium 141, Potassium 4.4, BUN 32 H, Creatinine 1.54 H, Glucose 136 H, Magnesium 2.2 Assessment And Plan - Current Problems (Diagnosis) (1) Acute respiratory failure Current Visit: Yes Status: Acute Plan: Likely secondary to pneumonia along with acute CHF exacerbation -will continue diurese with IV Lasix -pneumonia treatment as listed below -continue to provide supportive care -oxygen as needed. We will wean as tolerated -nebulizer treatments as needed Qualifiers: Respiratory failure complication: hypoxia Qualified Code(s): J96.01 - Acute respiratory failure with hypoxia (2) Pneumonia Current Visit: Yes Status: Acute Plan: Chest x-ray consistent with right lower lobe pneumonia -pneumonia severity index score of 93 points, risk class IV. 8.2 9.3% mortality rate, recommend hospitalization. -continue IV Rocephin and azithromycin -repeat chest x-ray without any changes -monitor vital signs and labs closely -provide oxygen as needed, will continue to wean as tolerated. -if no improvement, will consider pulmonology consult Qualifiers: Pneumonia type: due to unspecified organism Laterality: right Lung location: lower lobe of lung Qualified Code(s): J18.1 - Lobar pneumonia, unspecified organism (3) Congestive heart failure Current Visit: Yes Status: Acute Plan: Patient with acute on chronic CHF exacerbation -diuresis with IV Lasix -fluid restriction -daily weights -Will restart home medications as tolerated Qualifiers: Heart failure type: unspecified Heart failure chronicity: acute on chronic Qualified Code(s): I50.9 - Heart failure, unspecified (4) Atrial fibrillation Current Visit: No Status: Chronic Plan: Patient with a history of chronic atrial fibrillation, has an external defibrillator/monitor -currently rate controlled -restart home diltiazem, metoprolol and amiodarone -restart home Xarelto -monitor on tele Qualifiers: Atrial fibrillation type: chronic Qualified Code(s): I48.2 - Chronic atrial fibrillation (5) Hypertension Current Visit: No Status: Chronic Plan: Stable blood pressures at this time. -will restart home medications -continue to monitor blood pressures Qualifiers: Hypertension type: essential hypertension Qualified Code(s): I10 - Essential (primary) hypertension (6) Hyperlipidemia Current Visit: Yes Status: Acute Plan: Continue statin Qualifiers: Hyperlipidemia type: unspecified Qualified Code(s): E78.5 - Hyperlipidemia , unspecified (7) Acute kidney injury Current Visit: Yes Status: Resolved Plan: Likely secondary to volume overload; now resolved. -continue IV diuresis -avoid other nephrotoxic medications -monitor via labs in the morning -if no improvement, will get nephrology consult - Plan DVT prophylaxis: Xarelto, home med GI prophylaxis: None Diet: Heart healthy, fluid restriction Disposition: Pending symptomatic improvement
[2019-03-13] MEDS ORDERED: RIVAROXABAN 10 MG TABLET PO SCH (17:00)
[2019-03-13] MEDS ORDERED: RIVAROXABAN 20 MG TABLET PO SCH (17:00)
[2019-03-13] MEDS: CEFTRIAXONE/SWI 1gm 1 GM/10 ML SYR IV SCH (17:34)
--- NOTE | 2019-03-13 17:35 | ECHO ---
HEIGHT: 5 ft 9 in WEIGHT: 228 lb 8 oz DATE OF STUDY: 03/13/[address]: Elise Espinal MD 2-DIMENSIONAL: YES M.MODE: YES DOPPLER: YES COLOR FLOW: YES TDS: PORTABLE: DEFINITY: BUBBLE STUDY: DIAGNOSIS: ELEVATED BNP CARDIAC HISTORY: CATHERIZATION: NO SURGERY: NO PROSTHETIC VALVE: NO PACEMAKER: NO MEASUREMENTS (cm) DIASTOLIC (NORMALS) SYSTOLIC (NORMALS) IVSd 1.0 (0.6-1.2) LA Diam 3.8 (1.9-4.0) LVEF 38% LVIDd 6.1 (3.5-5.7) LVIDs 5.0 (2.0-3.5) %FS 19% LVPWd 1.1 (0.6-1.2) Ao Diam 3.3 (2.0-3.7) 2 DIMENSIONAL ASSESSMENT: RIGHT ATRIUM: NORMAL LEFT ATRIUM: NORMAL RIGHT VENTRICLE: NORMAL LEFT VENTRICLE: DILATED TRICUSPID VALVE: NORMAL MITRAL VALVE: NORMAL PULMONIC VALVE: NORMAL AORTIC VALVE: NORMAL PERICARDIAL EFFUSION: NONE AORTIC ROOT: NORMAL LEFT VENTRICULAR WALL MOTION: MODERATE GLOBAL HYPOKINESIS DOPPLER/COLOR FLOW: MILD AORTIC REGURGITATION AND TRICUSPID REGURGITATION. COMMENTS: MODERATE GLOBAL HYPOKINESIS. EF% 38. LEFT VENTRCICLE DILATED. NO THROMBUS. NO EFFUSION. TECHNOLOGIST: NANCIE GAMBINO
[2019-03-13] MEDS: ROSUVASTATIN 10 MG TAB PO SCH (21:08)
[2019-03-14] MEDS: IPRATROPIUM BROM 0.5MG/2.5ML NEB SCH ×4 (00:40→11:30)
[2019-03-14] MEDS: ALBUTEROL 2.5 MG/3 ML NEB SOL NEB SCH ×3 (02:00→14:00)
[2019-03-14] MEDS: CEFTRIAXONE/SWI 1gm 1 GM/10 ML SYR IV SCH (05:39)
[2019-03-14 06:13] LABS: Absolute Lymphocytes (CBC) 0.3 K/uL (0.7-4.9); Basophils % 0.5 % (0-1.3); Hematocrit 35.4 % (39.6-49.0); Lymphocytes % 7.9 % (15.3-44.8); MPV 9.1 fL (7.6-11.3); RBC Red Blood Cell Count 3.43 M/uL (4.33-5.43)
[2019-03-14 06:34] LABS: Albumin 2.9 g/dL (3.4-5.0); Bilirubin Total 0.8 mg/dL (0.2-1.0); Potassium 3.6 mmol/L (3.5-5.1); Protein, Total 6.6 g/dL (6.4-8.2)
[2019-03-14 07:16] VITALS: TEMP 96.9
[2019-03-14] MEDS ORDERED: POTASSIUM CL SA 10 MEQ TAB PO ONE (09:00)
[2019-03-14] MEDS: AZITHROMYCIN IV 500 MG in NA CHLORIDE 0.9% 250 ML IVPB SCH (10:40)
[2019-03-14] MEDS: AMIODARONE HCL 200 MG TAB PO SCH (10:53)
[2019-03-14] MEDS: VALSARTAN 80 MG TAB PO SCH (10:54)
[2019-03-14] MEDS: FUROSEMIDE 40 MG/4 ML VIAL IV SCH (10:55)
[2019-03-14] MEDS: METOPROLOL TAR 50 MG TAB PO SCH (10:56)
[2019-03-14 12:32] VITALS: O2SAT 95
--- NOTE | 2019-03-14 12:51 | P.DS ---
Admission Date: 03/12/19 Discharge Date: 03/14/19 Primary Care Provider: Dr. Mcdaniels, Putty Tinter Maker: Dr. Joya ([facility]) Disposition: ROUTINE DISCHARGE Discharge Condition: GOOD Reason for Admission: Shortness of breath - Problems (1) Acute respiratory failure Current Visit: Yes Status: Acute Qualifiers: Respiratory failure complication: hypoxia Qualified Code(s): J96.01 - Acute respiratory failure with hypoxia (2) Pneumonia Current Visit: Yes Status: Acute Qualifiers: Pneumonia type: due to unspecified organism Laterality: right Lung location: lower lobe of lung Qualified Code(s): J18.1 - Lobar pneumonia, unspecified organism (3) Congestive heart failure Current Visit: Yes Status: Acute Qualifiers: Heart failure type: unspecified Heart failure chronicity: acute on chronic Qualified Code(s): I50.9 - Heart failure, unspecified (4) Atrial fibrillation Current Visit: No Status: Chronic Qualifiers: Atrial fibrillation type: chronic Qualified Code(s): I48.2 - Chronic atrial fibrillation (5) Hypertension Current Visit: No Status: Chronic Qualifiers: Hypertension type: essential hypertension Qualified Code(s): I10 - Essential (primary) hypertension (6) Hyperlipidemia Current Visit: Yes Status: Acute Qualifiers: Hyperlipidemia type: unspecified Qualified Code(s): E78.5 - Hyperlipidemia , unspecified (7) Acute kidney injury Current Visit: Yes Status: Resolved Brief History of Present Illness: This is a 63-year-old male with past medical history of CHF, atrial fibrillation , hypertension admitted for shortness of breath. Per patient, shortness of breath started at rest and has been going on for about 1 day. He also complains of orthopnea and nausea. No alleviating factors. He did take Robitussin that helped his cough. He did not take any extra Lasix to help with the shortness of breath. He denies any chest pain at this time, headache, vision changes, lightheadedness, fevers/chills, other GI or complaints. The shortness of breath was getting worse therefore he came to the emergency room. In the ER, his blood pressure was 123/73, heart rate of 79, respirations of 22, afebrile at 97.9 but satting 89% on room air. This improved to 96% on 2 L. patient states he is not on any home oxygen. His lab work was remarkable for elevated creatinine of 1.54, elevated BUN of 32 along with elevated blood sugars 136[place] [address]. His WBC count elevated to 12.3. His lactic acid was also elevated to 2.3 and procalcitonin was pending. His chest x-ray was significant for a mild right lower lobe pneumonia. In the ER, he received nebulizer treatments, azithromycin and Rocephin. The time of my exam, he is alert oriented x3, in mild respiratory distress, satting well on 2 L of oxygen and otherwise hemodynamically stable. Hospital Course: Patient was admitted for acute respiratory failure likely secondary to pneumonia along with CHF. Patient was diuresed with IV Lasix, given IV antibiotics with Rocephin and azithromycin. He is provided with supplemental oxygen as needed and he was successfully weaned off of oxygen prior to discharge. His symptoms improved. His acute kidney injury resolved. He was restarted on his home medications, he did otherwise well throughout the stay. An echocardiogram was done, which showed ejection fraction of 30% along with moderate global hypokinesis. Per patient, this is stable from his last echocardiogram done in June in his [facility] office. Prior to discharge , he was alert oriented x3, in no acute distress and hemodynamically stable. He was ambulating well, oxygen saturation was above 92% with exertion on room air. He was clinically doing well. His diagnoses/treatment plan was explained to him, he verbalized understanding. All questions were answered, He was then discharged home in a safe and stable manner. He will follow up with is primary care physician in 2-3 days and his foundation [facility]ger in 1 week. Vital Signs/Physical Exam: Temp Pulse Resp BP Pulse Ox 96.9 F 89 18 128/58 L 100 03/14/19 08:00 03/14/19 10:56 03/14/19 08:00 03/14/19 10:56 03/14/19 08:00 General: Alert, In no apparent distress, Oriented x3 HEENT: Atraumatic, PERRLA, EOMI Neck: Supple, JVD not distended Respiratory: Clear to auscultation bilaterally, Normal air movement Cardiovascular: Regular rate/rhythm, Normal S1 S2 Gastrointestinal: Normal bowel sounds, No tenderness Musculoskeletal: No tenderness Integumentary: No rashes Neurological: Normal speech, Normal tone, Normal affect Lymphatics: No axilla or inguinal lymphadenopathy Laboratory Data at Discharge: WBC 4.0 K/uL (4.3-10.9) L D 03/14/19 05:52 Hgb 11.8 g/dL (13.6-17.9) L 03/14/19 05:52 Hct 35.4 % (39.6-49.0) L 03/14/19 05:52 Plt Count 147 K/uL (152-406) L 03/14/19 05:52 PT 22.0 SECONDS (9.5-12.5) H 03/12/19 17:00 INR 1.91 03/12/19 17:00 Sodium 142 mmol/L (136-145) 03/14/19 05:52 Potassium 3.6 mmol/L (3.5-5.1) 03/14/19 05:52 BUN 29 mg/dL (7-18) H 03/14/19 05:52 Creatinine 1.10 mg/dL (0.55-1.3) 03/14/19 05:52 Glucose 110 mg/dL (74-106) H 03/14/19 05:52 Phosphorus 3.7 mg/dL (2.5-4.9) 03/13/19 03:34 Magnesium 2.2 mg/dL (1.8-2.4) 03/12/19 17:00 Total Bilirubin 0.8 mg/dL (0.2-1.0) 03/14/19 05:52 AST 22 U/L (15-37) 03/14/19 05:52 ALT 21 U/L (12-78) 03/14/19 05:52 Alkaline Phosphatase 57 U/L (45-117) 03/14/19 05:52 Triglycerides 97 mg/dL (<150) 03/12/19 20:13 Cholesterol 82 mg/dL (<200) 03/12/19 20:13 HDL Cholesterol 38 mg/dL (40-60) L 03/12/19 20:13 Cholesterol/HDL Ratio 2.16 03/12/19 20:13 Home Medications: Amiodarone HCl [Cordarone*] 1 tab PO DAILY 03/12/19 Ascorbic Acid [Vitamin C*] 1 tab PO DAILY 03/12/19 Aspirin Tab [Ian Aspirin*] 1 tab PO DAILY 03/12/19 Cholecalciferol (Vitamin D3) [Vitamin D3] 1 tab PO BID 03/12/19 Diltiazem Tab [Cardizem Tab*] 30 tab PO QID 03/12/19 Folic Acid 1 tab PO DAILY 03/12/19 Furosemide 1 tab PO BID 03/12/19 Glucosam/MSM/Vit C/Deniz/Hrb#21 [Glucosamine-MSM Complex Tab] 1,500 tab PO DAILY 03/12/19 Metoprolol Succinate [Toprol Xl] 100 mg PO BID 03/12/19 Multivitamin/Iron/Folic Acid [Centrum Adults Tablet] 1 tab PO DAILY 03/12/19 Potassium Chloride 1 tab PO DAILY 03/12/19 Rivaroxaban [Xarelto] 20 mg PO DAILY 03/12/19 Rosuvastatin Calcium 1 tab PO BEDTIME 03/12/19 Valsartan 1 tab PO DAILY 03/12/19 Vitamin E 1 cap PO SEECOM 03/12/19 Azithromycin [Zithromax] 500 mg PO DAILY #5 tablet 03/14/19 New Medications: Azithromycin [Zithromax] 500 mg PO DAILY #5 tablet Patient Discharge Instructions: Please follow up with the primary care physician in 2-3 days. Please follow up with the foundation digger in 1 week. Please return to the emergency room for worsening symptoms. New medication: Azithromycin, an antibiotic for your pneumonia. Diet: AHA Activity: Ad mary kate Followup: Isaiah Mcdaniels MD [Primary Care Provider] - 2-3 Days Time spent managing pt's care (in minutes): 55
[2019-03-14 12:54] VITALS: BP 111/57
== END 2019-03-14 15:12 | disposition home or self-care (01) | DRG 193 ==
LOC: ER 16:15 → ERHOLD 17:51 → 4TH 18:53
PROVIDERS: ADMIT Family Medicine; ATTEND Family Medicine
DX: J18.9 Pneumonia, unspecified organism (principal); J96.01 Acute respiratory failure with hypoxia; N17.9 Acute kidney failure, unspecified; I11.0 Hypertensive heart disease with heart failure; I50.9 Heart failure, unspecified; I48.91 Unspecified atrial fibrillation; E78.5 Hyperlipidemia, unspecified; Z95.810 Presence of automatic (implantable) cardiac defibrillator
CPT/HCPCS: 36415; 71045; 71046; 80048; 80053; 80061; 83605; 83735; 83880; 84100; 84145; 84484; 85025; 85610; 87040; 93005; 93306; 94640; 94760; 96365; 96375; 99285; J0456; J0696; J1940

== ENCOUNTER 2019-05-31 10:18 | Inpatient (IN) | payer OTHER ==
[2019-05-31] MEDS ORDERED: FUROSEMIDE 100 MG/10 ML VIAL IV ONE (11:06)
--- NOTE | 2019-05-31 11:25 | RAD REPORT ---
EXAM DESCRIPTION: RAD - Chest Single View - 05/31/2019 11:18 am CLINICAL HISTORY: SOB Chest pain. COMPARISON: Chest Pa And Lat (2 Views) dated 03/13/2019; Chest Single View dated 03/12/2019; CHEST PA AN D LAT 2 VIEW dated 01/18/2015; CHEST PA AND LAT 2 VIEW dated 01/04/2015 FINDINGS: Portable technique limits examination quality. Asymmetric bilateral pulmonary opacities are present, greater on the right with a small pleural effus ion seen. Findings probably indicate asymmetric pulmonary edema or less likely pneumonia. Heart is si gnificantly enlarged. No displaced fractures. IMPRESSION: Moderate asymmetric CHF pattern suspected.
[2019-05-31 11:33] LABS: Absolute Lymphocytes (CBC) 0.7 K/uL (0.7-4.9); Basophils % 0.1 % (0-1.3); Hematocrit 39.8 % (39.6-49.0); Lymphocytes % 11.4 % (15.3-44.8); MPV 9.7 fL (7.6-11.3); RBC Red Blood Cell Count 3.88 M/uL (4.33-5.43)
[2019-05-31 11:38] LABS: Protime INR 2.39
[2019-05-31 12:03] LABS: ALT/SGPT 26 U/L (12-78); AST/SGOT 30 U/L (15-37); Albumin 3.5 g/dL (3.4-5.0); Alkaline Phosphatase 77 U/L (45-117); BUN Blood Urea Nitrogen 56 mg/dL (7-18); Bicarbonate 27 mmol/L (21-32); Bilirubin Direct 0.3 mg/dL (0-0.2); Bilirubin Total 0.8 mg/dL (0.2-1.0); Glucose Level 118 mg/dL (74-106); Magnesium 2.4 mg/dL (1.8-2.4); NT PRO-BNP 9982 pg/mL (<125); Potassium 4.3 mmol/L (3.5-5.1); Protein, Total 7.6 g/dL (6.4-8.2); Sodium Level 144 mmol/L (136-145); Troponin (Emerg Dept Use Only) < 0.02 ng/mL (0.0-0.045)
--- NOTE | 2019-05-31 12:57 | RAD REPORT ---
EXAM DESCRIPTION: CT - CT-ABD PELVIS W/O CONTRAST - 05/31/2019 12:41 pm CLINICAL HISTORY: Abdominal pain. SOB< Abdominal swelling COMPARISON: No comparisons TECHNIQUE: CT imaging of the abdomen and pelvis was performed without contrast. Solid organ, bowel a nd vascular assessment is limited due to lack of IV and oral contrast. All CT scans are performed using dose optimization technique as appropriate and may include automated exposure control or mA/KV adjustment according to patient size. FINDINGS: Small bilateral pleural effusions are noted. The liver, spleen, pancreas, adrenal glands and right kidney are within normal limits for a limited n on-contrast examination. 4.4 cm left renal cyst. Gallbladder appears contracted with wall thickening present. No bowel obstruction, free air, free fluid or abscess. Scattered colonic diverticulosis. Soft tissue mass is seen in the central omentum with dystrophic calcifications measuring 2.8 cm. Surgical clips a re present in the region. The appendix is normal. Bilateral hip arthroplasties are noted. Moderate lumbar degenerative changes. IMPRESSION: Soft tissue mass with dystrophic calcifications in the central mesenteric measuring 2.8 cm. Previous surgical clips in this region are noted. The findings would be most compatible with a ca rcinoid tumor. Prior relevant comparative imaging is not available at this institution. Small bilateral pleural effusions. Scattered colonic diverticulosis. A limited non-contrast examination was performed as detailed.
--- NOTE | 2019-05-31 13:22 | ER ---
Nurse's Notes [facility] Name: Jad Tam Age: 64 yrs Sex: Male : 1955 Arrival Date: 05/31/2019 Time: 10:20 Bed 8 Private MD: Isaiah Mcdaniels Diagnosis: Unspecified combined systolic (congestive) and diastolic (congestive) heart failure;Shortness of breath;Peripheral Edema, Renal Insufficency Presentation: 05/31 10:42 Presenting complaint: Patient states: increasing SOB over past few days, hx of CHF, iw increased swelling in legs, denies chest pain, denies cough, fever chills, difficulty sleeping. Transition of care: patient was not received from another setting of care. Onset of symptoms was May 28, 2019. Risk Assessment: Do you want to hurt yourself or someone else? Patient reports no desire to harm self or others. Initial Sepsis Screen: Does the patient meet any 2 criteria? No. Patient's initial sepsis screen is negative. Does the patient have a suspected source of infection? No. Patient's initial sepsis screen is negative. Care prior to arrival: None. 10:42 Method Of Arrival: Wheelchair iw 10:42 Acuity: CJ 3 iw Historical: - Allergies: 10:49 Demerol; iw - Home Meds: 10:49 Crestor 10 mg Oral tab 1 tab once daily [Active]; diltiazem HCl 30 mg Oral tab 1 tab 4 iw times per day [Active]; Diovan HCT 80-12.5 mg Oral tab 1 tab once daily [Active]; furosemide 80 mg Oral tab 1 tab once daily [Active]; potassium chloride 20 mEq Oral pack 1 packet 2 times per day [Active]; Amiodarone Oral [Active]; Xarelto 20 mg Oral tab 1 tab once daily [Active]; metoprolol succinate 100 mg Oral Tb24 1 tab twice a day [Active]; Glucosamine oral oral daily [Active]; aspirin 325 mg Oral tab 1 tab once daily [Active]; - PMHx: 10:49 Atrial Fib; CHF; Hypertension; psoriasis; non hodgkins lymphoma 20 years ago; iw - PSHx: 10:49 b/l hip replacement; left knee surgery; Tonsillectomy; Adenoids; iw - Immunization history:: Adult Immunizations up to date. - Social history:: Smoking status: Patient/guardian denies using tobacco. - Ebola Screening: : Patient negative for fever greater than or equal to 101.5 degrees Fahrenheit, and additional compatible Ebola Virus Disease symptoms Patient denies exposure to infectious person Patient denies travel to an Ebola-affected area in the 21 days before illness onset No symptoms or risks identified at this time. Screenin:00 Abuse screen: Denies threats or abuse. Nutritional screening: No deficits noted. tr5 Tuberculosis screening: No symptoms or risk factors identified. Fall Risk None identified. Assessment: 12:49 Reassessment: Patient appears in no apparent distress at this time. Patient and/or sg family updated on plan of care and expected duration. Pain level reassessed. Patient is alert, oriented x 3, equal unlabored respirations, skin warm/dry/pink. pt returned from CT scan at this time. Vital Signs: 10:49 BP 122 / 74; Pulse 60; Resp 18 S; Temp 96.3; Pulse Ox 94% on R/A; Weight 102.06 kg; iw Height 5 ft. 9 in. (175.26 cm); Pain 0/10; 11:35 BP 121 / 71; Pulse 68; Resp 17; Pulse Ox 92% on R/A; Pain 0/10; sg 12:35 BP 139 / 77; Pulse 70; Resp 24; Temp 98.0(TE); Pulse Ox 94% on R/A; mh5 10:49 Body Mass Index 33.23 (102.06 kg, 175.26 cm) iw ED Course: 10:20 Patient arrived in ED. mr 10:21 Isaiah Mcdaniels MD is Private Physician. mr 10:32 Steven Jolley MD is Attending Physician. kdr 10:35 Otf Watts, RABIA is Primary Nurse. sg 10:44 Triage completed. iw 10:49 Arm band placed on. iw 11:09 Radiology exam delayed due to lab results not completed at this time. (BUN/Creatinine). bq 11:19 XRAY Chest (1 view) In Process Unspecified. EDMS 11:24 Patient has correct armband on for positive identification. Placed in gown. Bed in low mh5 position. Call light in reach. Side rails up X2. Adult w/ patient. Warm blanket given. nurse monitoring on. Pulse ox on. NIBP on. 11:24 Initial lab(s) drawn, by [facility], sent to lab. Inserted saline lock: 22 gauge in left [facility] antecubital area, using aseptic technique. Blood collected. 11:25 Basic Metabolic Panel Sent. [facility] 11:25 CBC with Diff Sent. [facility] 11:25 LFT's Sent. [facility] 11:25 Magnesium Sent. [facility] 11:25 NT PRO-BNP Sent. [facility] 11:25 PT-INR Sent. [facility] 11:25 Troponin (emerg Dept Use Only) Sent. [facility] 11:26 EKG done, by ED staff, reviewed by Steven Jolley MD. 5 12:[address] sg 12:40 CT completed. Patient tolerated procedure well. Patient moved back from CT. bq 12:45 CT-ABD In Process Unspecified. EDMS 13:19 Ilya Arriaga MD is Hospitalizing Provider. kdr 14:49 Inserted saline lock: 22 gauge in right forearm, using aseptic technique. tr5 15:32 No provider procedures requiring assistance completed. Patient admitted, IV remains in tr5 place. Administered Medications: 12:10 Drug: Lasix 100 mg Route: IVP; Site: left forearm; sg 13:00 Follow up: Urine output 1000 ml; Response: No adverse reaction sg Output: 13:00 Urine: 1000ml; Total: 1000ml. sg Outcome: 13:20 Decision to Hospitalize by Provider. kdr 15:31 Admitted to Med/surg accompanied by tech, via wheelchair, room 429, with chart, Report tr5 called to Francy Wolfe RN 15:31 Condition: stable 15:31 Instructed on the need for admit. 15:59 Patient left the ED. sg Signatures: Dispatcher [employer] EDMS Otf Watts, RABIA CAMARILLO sg Steven Jolley MD MD kdr Rivera, Kathe mr PortiaofeliaMalena Irene, RN RN iw Martinez, Maria [facility] El De Leon RN RN [facility]
--- NOTE | 2019-05-31 13:22 | EDPHYS ---
Physician Documentation [facility] Name: Jad Tam Age: 64 yrs Sex: Male : 1955 Arrival Date: 05/31/2019 Time: 10:20 Bed 8 Private MD: Isaiah Mcdaniels ED Physician Steven Jolley HPI: 05/31 13:21 This 64 yrs old Male presents to ER via Wheelchair with complaints of kdr Shortness Of Breath. 13:21 The patient has shortness of breath at rest, with light activity. Onset: The kdr symptoms/episode began/occurred gradually. Historical: - Allergies: 10:49 Demerol; iw - Home Meds: 10:49 Crestor 10 mg Oral tab 1 tab once daily [Active]; diltiazem HCl 30 mg Oral tab 1 tab 4 iw times per day [Active]; Diovan HCT 80-12.5 mg Oral tab 1 tab once daily [Active]; furosemide 80 mg Oral tab 1 tab once daily [Active]; potassium chloride 20 mEq Oral pack 1 packet 2 times per day [Active]; Amiodarone Oral [Active]; Xarelto 20 mg Oral tab 1 tab once daily [Active]; metoprolol succinate 100 mg Oral Tb24 1 tab twice a day [Active]; Glucosamine oral oral daily [Active]; aspirin 325 mg Oral tab 1 tab once daily [Active]; - PMHx: 10:49 Atrial Fib; CHF; Hypertension; psoriasis; non hodgkins lymphoma 20 years ago; iw - PSHx: 10:49 b/l hip replacement; left knee surgery; Tonsillectomy; Adenoids; iw - Immunization history:: Adult Immunizations up to date. - Social history:: Smoking status: Patient/guardian denies using tobacco. - Ebola Screening: : Patient negative for fever greater than or equal to 101.5 degrees Fahrenheit, and additional compatible Ebola Virus Disease symptoms Patient denies exposure to infectious person Patient denies travel to an Ebola-affected area in the 21 days before illness onset No symptoms or risks identified at this time. ROS: 15:34 Constitutional: Negative for fever, chills, and weight loss, Eyes: Negative for injury, kdr pain, redness, and discharge, ENT: Negative for injury, pain, and discharge, Neck: Negative for injury, pain, and swelling, Cardiovascular: Negative for chest pain, palpitations, and edema, Abdomen/GI: Negative for abdominal pain, nausea, vomiting, diarrhea, and constipation, Back: Negative for injury and pain, : Negative for injury, bleeding, discharge, and swelling, MS/Extremity: Negative for injury and deformity, Skin: Negative for injury, rash, and discoloration, Neuro: Negative for headache, weakness, numbness, tingling, and seizure activity. Psych: Negative for depression, anxiety, suicide ideation, homicidal ideation, and hallucinations, Allergy/Immunology: Negative for hives, rash, and allergies, Endocrine: Negative for neck swelling, polydipsia, polyuria, polyphagia, and marked weight changes, Hematologic/Lymphatic: Negative for swollen nodes, abnormal bleeding, and unusual bruising. 15:34 Respiratory: Positive for dyspnea on exertion, shortness of breath, on exertion. Exam: 15:34 Constitutional: This is a well developed, well nourished patient who is awake, alert, kdr and in no acute distress. Head/Face: Normocephalic, atraumatic. Eyes: Pupils equal round and reactive to light, extra-ocular motions intact. Lids and lashes normal. Conjunctiva and sclera are non-icteric and not injected. Cornea within normal limits. Periorbital areas with no swelling, redness, or edema. Neck: Trachea midline, no thyromegaly or masses palpated, and no cervical lymphadenopathy. Supple, full range of motion without nuchal rigidity, or vertebral point tenderness. No Meningismus. Chest/axilla: Normal chest wall appearance and motion. Nontender with no deformity. No lesions are appreciated. Cardiovascular: Regular rate and rhythm with a normal S1 and S2. No gallops, murmurs, or rubs. Normal PMI, no JVD. No pulse deficits. Respiratory: Lungs have equal breath sounds bilaterally, clear to auscultation and percussion. No rales, rhonchi or wheezes noted. No increased work of breathing, no retractions or nasal flaring. Back: No spinal tenderness. No costovertebral tenderness. Full range of motion. Skin: Warm, dry with normal turgor. Normal color with no rashes, no lesions, and no evidence of cellulitis. Neuro: Awake and alert, GCS 15, oriented to person, place, time, and situation. Cranial nerves II-XII grossly intact. Motor strength 5/5 in all extremities. Sensory grossly intact. Cerebellar exam normal. Normal gait. Psych: Awake, alert, with orientation to person, place and time. Behavior, mood, and affect are within normal limits. 15:34 Abdomen/GI: Inspection: distension, that is mild, obese Bowel sounds: normal, Palpation: soft, mild abdominal tenderness, in the right lower quadrant and left lower quadrant, mass, is not appreciated, rebound tenderness, is not appreciated. Vital Signs: 10:49 BP 122 / 74; Pulse 60; Resp 18 S; Temp 96.3; Pulse Ox 94% on R/A; Weight 102.06 kg; iw Height 5 ft. 9 in. (175.26 cm); Pain 0/10; 11:35 BP 121 / 71; Pulse 68; Resp 17; Pulse Ox 92% on R/A; Pain 0/10; sg 12:35 BP 139 / 77; Pulse 70; Resp 24; Temp 98.0(TE); Pulse Ox 94% on R/A; mh5 10:49 Body Mass Index 33.23 (102.06 kg, 175.26 cm) iw MDM: 13:20 Patient medically screened. kdr 15:34 Data reviewed: vital signs, nurses notes, lab test result(s), radiologic studies. kdr Counseling: I had a detailed discussion with the patient and/or guardian regarding: the historical points, exam findings, and any diagnostic results supporting the discharge/admit diagnosis, lab results, radiology results, the need for further work-up and treatment in the hospital. 05/31 10:47 Order name: Basic Metabolic Panel; Complete Time: 13:04 kdr 05/31 10:47 Order name: CBC with Diff; Complete Time: 11:50 kdr 05/31 10:47 Order name: LFT's; Complete Time: 13:04 kdr 05/31 10:47 Order name: Magnesium; Complete Time: 13:04 kdr 05/31 10:47 Order name: NT PRO-BNP; Complete Time: 13:04 kdr 05/31 10:47 Order name: PT-INR; Complete Time: 11:50 kdr 05/31 10:47 Order name: Troponin (emerg Dept Use Only); Complete Time: 13:04 kdr 05/31 14:59 Order name: CBC with Automated Diff EDMS 05/31 14:59 Order name: Comprehensive Metabolic Panel EDMI 05/31 14:59 Order name: Magnesium EDMI 05/31 14:59 Order name: NT PRO-BNP EDMI 05/31 14:59 Order name: CKMB Creatine Kinase MB EDMI 05/31 14:59 Order name: CKMB Creatine Kinase MB [facility] 05/31 14:59 Order name: CKMB Creatine Kinase MB [facility] 05/31 10:47 Order name: XRAY Chest (1 view); Complete Time: 11:50 [facility] 05/31 10:47 Order name: EKG; Complete Time: 10:48 [facility] 05/31 12:25 Order name: CT-ABD ; Complete Time: 13:04 EDMI 05/31 14:59 Order name: CONS Physician Consult [facility] 05/31 14:59 Order name: Heart Healthy [facility] 05/31 14:59 Order name: CKMB Creatine Kinase MB [facility] 05/31 14:59 Order name: Creatine Phosphokinase [facility] 05/31 15:00 Order name: Creatine Phosphokinase [facility] 05/31 15:00 Order name: Creatine Phosphokinase [facility] 05/31 15:00 Order name: Creatine Phosphokinase [facility] 05/31 15:00 Order name: Troponin I [facility] 05/31 15:00 Order name: Troponin I [facility] 05/31 15:00 Order name: Troponin I [facility] 05/31 15:00 Order name: Troponin I [facility] 05/31 10:47 Order name: Cardiac monitoring; Complete Time: 10:51 [facility] 05/31 10:47 Order name: EKG - Nurse/Tech; Complete Time: 12:49 [facility] 05/31 10:47 Order name: IV Saline Lock; Complete Time: 14:49 [facility] 05/31 10:47 Order name: Labs collected and sent; Complete Time: 12:49 [facility] 05/31 10:47 Order name: O2 Per Protocol; Complete Time: 10:51 [facility] 05/31 10:47 Order name: O2 Sat Monitoring; Complete Time: 10:51 kdr Administered Medications: 12:10 Drug: Lasix 100 mg Route: IVP; Site: left forearm; sg 13:00 Follow up: Urine output 1000 ml; Response: No adverse reaction sg Disposition: 05/31/19 13:20 Hospitalization ordered by Ilya Arriaga for Observation. Preliminary diagnosis are Unspecified combined systolic (congestive) and diastolic (congestive) heart failure, Shortness of breath, Peripheral Edema, Renal Insufficency. - Bed requested for Telemetry/MedSurg (observation). - Status is Observation. sg - Condition is Fair. - Problem is an acute exacerbation. - Symptoms have improved. UTI on Admission? No Signatures: Dispatcher [employer] EDMI Rachel Silva RN RN dw Otf Watts RN RN sg Steven Jolley MD MD kdr Mindy Mcdaniels RN RN iw Corrections: (The following items were deleted from the chart) 12:25 11:01 Abdomen Pelvis W Con+CT.RAD.BRZ ordered. [facility] EDMI 14:24 13:20 Hospitalization Ordered by Ilya Arriaga MD for Observation. Preliminary dw diagnosis is Unspecified combined systolic (congestive) and diastolic (congestive) heart failure; Shortness of breath; Peripheral Edema, Renal Insufficency. Bed requested for Telemetry/MedSurg (observation). Status is Observation. Condition is Fair. Problem is an acute exacerbation. Symptoms have improved. UTI on Admission? No. kdr 15:59 14:24 05/31/2019 13:20 Hospitalization Ordered by Ilya Arriaga MD for Observation. sg Preliminary diagnosis is Unspecified combined systolic (congestive) and diastolic (congestive) heart failure; Shortness of breath; Peripheral Edema, Renal Insufficency. Bed requested for Telemetry/MedSurg (observation). Status is Observation. Condition is Fair. Problem is an acute exacerbation. Symptoms have improved. UTI on Admission? No. dw
--- NOTE | 2019-05-31 14:19 | EKG ---
Test Date: 2019-05-31 Test Time: 11:06:33 Technical Sales Representatives: MARY LOU MEASUREMENT RESULTS: Intervals: Rate: 63 MD: QRSD: 164 QT: 672 QTc: 687 Ayr: P: MD: QRS: -83 T: 34 INTERPRETIVE STATEMENTS: Atrial fibrillation Left axis deviation Right bundle branch block Abnormal ECG Compared to ECG 03/12/2019 16:40:44 Myocardial infarct finding no longer present Electronically Signed On 05-31-19 14:19:13 CRYSTAL LAPPER by Leonides Dowling
[2019-05-31] MEDS ORDERED: ONDANSETRON 4 MG/2 ML VIAL IV PRN (14:52)
[2019-05-31] MEDS ORDERED: ACETAMINOPHEN 500 MG TAB PO PRN (14:52)
[2019-05-31] MEDS ORDERED: VITAMIN E PO SCH (15:15)
[2019-05-31] MEDS: IPRATROPIUM BROM 0.5MG/2.5ML NEB SCH ×2 (16:11→19:30)
[2019-05-31 16:38] VITALS: BMI 33.5
[2019-05-31] MEDS ORDERED: DULOXETINE 30 MG CAP PO SCH (17:00)
[2019-05-31] MEDS: DILTIAZEM HCL 60 MG TAB PO SCH ×2 (17:40→21:52)
[2019-05-31 17:42] LABS: Absolute Lymphocytes (CBC) 0.7 K/uL (0.7-4.9); Basophils % 0.7 % (0-1.3); Hematocrit 39.7 % (39.6-49.0); Lymphocytes % 9.9 % (15.3-44.8); MPV 9.7 fL (7.6-11.3); RBC Red Blood Cell Count 3.89 M/uL (4.33-5.43)
[2019-05-31] MEDS: FUROSEMIDE 40 MG/4 ML VIAL IV SCH (17:42)
[2019-05-31] MEDS: HEPARIN 5000 UNIT/ML 1 ML VIAL SQ SCH (17:42)
[2019-05-31] MEDS: RIVAROXABAN 20 MG TABLET PO SCH (17:42)
[2019-05-31 18:00] LABS: Albumin 3.6 g/dL (3.4-5.0); Magnesium 2.4 mg/dL (1.8-2.4); Potassium 3.8 mmol/L (3.5-5.1); Protein, Total 7.5 g/dL (6.4-8.2)
[2019-05-31] MEDS: ALBUTEROL 2.5 MG/3 ML NEB SOL NEB SCH (19:30)
[2019-05-31 19:50] LABS: CKMB Creatine Kinase MB 2.3 ng/mL (0.3-3.6); Creatine Phosphokinase 139 U/L (39-308); Troponin I < 0.02 ng/mL (0.0-0.045)
[2019-05-31] MEDS ORDERED: HOME MED 1 EA UNK (Cholecalciferol (Vitamin D3) [Vitamin D3] 1 TAB) PO SCH (21:00)
[2019-05-31] MEDS: AMIODARONE HCL 200 MG TAB PO SCH (21:51)
[2019-05-31] MEDS: ROSUVASTATIN 10 MG TAB PO SCH (21:52)
[2019-05-31] MEDS: METOPROLOL XL 100 MG TAB PO SCH (21:52)
[2019-06-01] MEDS: ALBUTEROL 2.5 MG/3 ML NEB SOL NEB SCH ×4 (01:20→20:35)
[2019-06-01] MEDS: IPRATROPIUM BROM 0.5MG/2.5ML NEB SCH ×6 (01:20→20:35)
[2019-06-01] MEDS: HEPARIN 5000 UNIT/ML 1 ML VIAL SQ SCH ×3 (01:46→16:26)
--- NOTE | 2019-06-01 02:26 | HP ---
Date of Admission: 05/31/2019 Reason For Admission: Progressive shortness of breath. History Of Present Illness: This is a very nice gentleman with history of atrial fibrillation, CHF, hypertension, presented to emergency room with progressive shortness of breath as well as neck swelli ng. Patient is unable to sleep at night. Even sitting, he denies any chest pain. There is no cough , fever, chills, night sweats. In the emergency room, he was evaluated. X-ray showed moderate symme tric CHF pattern. CT of the abdomen done showed soft tissue mass with dystrophic calcification. The central mesenteric measured 2.8 cm. 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 Small bila teral pleural effusion. Scattered colonic diverticulosis. Patient was without oxygen. First set of lab done and showed mild anemia with hemoglobin of 13.3. Chemistry within normal limits except for chloride 109, creatinine 1.7, BUN of 56, glucose 118. BNP was 9982. Patient was admitted for [facility]. Currently is lying in bed. He looks more comfortable. His at the bedside. He had no ches t pain. No abdominal pain. Review of Systems: Otherwise as below. Past Medical History: Significant for CHF, atrial fibrillation, hypertension. Past Surgical History: Significant for left knee surgery, 2 hip surgeries. He also had a hernia ladonna og. Allergies: TO MEPERIDINE. Social History: He is . He has 1 kid. 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 He does not smoke, drink, or use any street drugs. He said he just drinks socially. Family History: Mother of CHF. Father of old age. Home Medications: According to discharge summary from last admission was significant for amiodarone, vitamin C, aspirin, vitamin D, Cardizem, folic acid, Lasix, multivitamin, metoprolol, multivitamin, potassium chloride 1 tablet orally once a day, Xarelto 20 mg daily, lovastatin, valsartan, vitamin E. Review of Systems: Denies any fever, chills, night sweats, dizziness, lightheaded, headache, blurred vision. There is n o cough or sputum, but he had progressive shortness of breath, dyspnea on exertion and orthopnea. He did not have any chest pain. There was no nausea, vomiting, abdominal pain, change in bowel movemen t, diarrhea, constipation, dysuria, frequency, urgency, hematuria. There is no history of depression , anxiety, seizure, or stroke. Physical Examination: Vital Signs: Currently, blood pressure is at 134/74, respiratory rate 18, pulse 60, temperature 96.3 , saturating 94% on room air. General: Patient is alert and oriented x3. Does not look in any distress. HEENT: Atraumatic, normocephalic. PERRLA. Oral mucosa is moist. Neck: Supple. No JVD. No carotid bruits. Chest: Bibasilar crackles. There is no expiratory wheezing. Heart: Regular rate and rhythm. S1, S2 normal. No gallop or murmur. Abdomen: Soft, distended. Positive bowel sounds. There is no shifting dullness. Extremities: No clubbing or cyanosis. +3 edema on the left and +2 edema on the right. Neurologic: Grossly intact. Cranial nerve exam 2 through 12 intact. Normal sensation. Normal refl exes. Normal muscle strength. Laboratory Data: Labs today done showed CBC was normal except for hemoglobin 13.3, platelets 196. C hemistry was normal except for chloride 109, creatinine of 1.77, GFR of 39, glucose 118. Direct bili arroyo of 0.3. BNP of 9982. Chest x-ray as mentioned above. Assessment And Plan: This is a 64-year-old gentleman with history of congestive heart failure. Last echocardiogram done on March 13 showed an ejection fraction of 38% with moderate global hypokines ia. Admitted for progressive shortness of breath and found to be in congestive heart failure. 1.Systolic congestive heart failure. As mentioned, we will check cardiac enzymes. Continue patient on home medications; amiodarone, metoprolol. Continue patient on Lasix, but we will switch to IV 40 twice a day. Obtain Cardiology consult to optimize the patient's care. Patient also will continue on diltiazem, Diovan. He was started on potassium protocol and continue on his oral home supplement. 2.Abdominal mass on CT. We will consult General Surgery. Suspicious for carcinoid. 3.History of hypertension. We will continue patient on Diovan as well as diltiazem and metoprolol. 4.History of hyperlipidemia. We will place patient on Crestor 10 mg orally as before. 5.Deep vein thrombosis prophylaxis with heparin. MERCEDEZ/WILFREDO Voice ID: [id number]
[2019-06-01 04:11] LABS: Creatine Phosphokinase 119 U/L (39-308); Troponin I < 0.02 ng/mL (0.0-0.045)
[2019-06-01 07:40] LABS: CKMB Creatine Kinase MB 1.7 ng/mL (0.3-3.6); Creatine Phosphokinase 114 U/L (39-308); Troponin I < 0.02 ng/mL (0.0-0.045)
[2019-06-01] MEDS: ASCORBIC ACID 500 MG TABLET PO SCH (08:41)
[2019-06-01] MEDS: ASPIRIN 325 MG TAB PO SCH (08:41)
[2019-06-01] MEDS: VITAMIN D 1000 UNIT TAB PO SCH (08:42)
[2019-06-01] MEDS: POTASSIUM CL SA 10 MEQ TAB PO SCH (08:42)
[2019-06-01] MEDS: FUROSEMIDE 40 MG/4 ML VIAL IV SCH ×2 (08:43→16:26)
[2019-06-01] MEDS: VALSARTAN 80 MG TAB PO SCH (08:43)
[2019-06-01] MEDS: MULTIVITAMIN TAB PO SCH (08:43)
[2019-06-01] MEDS: FOLIC ACID 1 MG TABLET PO SCH (08:43)
[2019-06-01] MEDS: AMIODARONE HCL 200 MG TAB PO SCH ×2 (08:44→20:22)
[2019-06-01] MEDS: METOPROLOL XL 100 MG TAB PO SCH ×2 (08:44→20:22)
[2019-06-01] MEDS ORDERED: MULTIVITAMIN PO SCH (09:00)
[2019-06-01] MEDS ORDERED: FOLIC ACID PO SCH (09:00)
[2019-06-01] MEDS ORDERED: ASPIRIN EC 81 MG TAB PO SCH (09:00)
[2019-06-01] MEDS ORDERED: IRON PO SCH (09:00)
[2019-06-01] MEDS ORDERED: HOME MED 1 EA UNK (Potassium Chloride [Potassium Chloride] 1 TAB) PO SCH (09:00)
[2019-06-01] MEDS ORDERED: AMIODARONE HCL 200 MG TAB PO SCH (09:00)
[2019-06-01] MEDS: DILTIAZEM HCL 60 MG TAB PO SCH ×3 (09:10→21:00)
[2019-06-01 12:19] LABS: Absolute Lymphocytes (CBC) 0.4 K/uL (0.7-4.9); Basophils % 0.9 % (0-1.3); Hematocrit 37.2 % (39.6-49.0); Lymphocytes % 7.2 % (15.3-44.8); MPV 9.6 fL (7.6-11.3); RBC Red Blood Cell Count 3.67 M/uL (4.33-5.43)
[2019-06-01 12:31] LABS: Albumin 3.2 g/dL (3.4-5.0); Potassium 3.7 mmol/L (3.5-5.1); Protein, Total 6.7 g/dL (6.4-8.2)
[2019-06-01] MEDS: RIVAROXABAN 20 MG TABLET PO SCH (16:26)
[2019-06-01] MEDS: ROSUVASTATIN 10 MG TAB PO SCH (20:22)
[2019-06-02] MEDS: HEPARIN 5000 UNIT/ML 1 ML VIAL SQ SCH ×2 (00:38→08:30)
[2019-06-02] MEDS: IPRATROPIUM BROM 0.5MG/2.5ML NEB SCH ×3 (01:50→13:46)
[2019-06-02] MEDS: ALBUTEROL 2.5 MG/3 ML NEB SOL NEB SCH ×3 (01:50→13:45)
[2019-06-02 06:23] LABS: Absolute Lymphocytes (CBC) 0.6 K/uL (0.7-4.9); Hematocrit 40.1 % (39.6-49.0); Lymphocytes % 11.1 % (15.3-44.8); MPV 9.5 fL (7.6-11.3); RBC Red Blood Cell Count 3.89 M/uL (4.33-5.43)
[2019-06-02 06:41] LABS: Albumin 3.3 g/dL (3.4-5.0); Bilirubin Total 1.1 mg/dL (0.2-1.0); Potassium 3.8 mmol/L (3.5-5.1); Protein, Total 6.9 g/dL (6.4-8.2)
--- NOTE | 2019-06-02 07:56 | PN ---
Date of Progress Note: 06/01/2019 Mr. Tam is 64 years old, was admitted on 05/31/2019 with acute exacerbation of chronic systolic con gestive heart failure. He has a history of atrial fibrillation, for which he takes metoprolol, amiod arone, and diltiazem with daily aspirin and Xarelto. INR was 2.39. Creatinine is 1.75. He had a BN P of 12,258. Overnight, he diuresed well. Today, he is feeling back to his normal self. I would co ntinue his present regimen for now. I told him to increase his Lasix on an as-needed basis when he f eels that he has gained weight or he is more short of breath or he has edema. As previously mentione d, I was concerned with his therapy with Cardizem with his ejection fraction, which was 38% as of Mar. I was also concerned that maybe an ablation is worth reconsidering. He will discuss th e case with his bus system operator in [place]. From my standpoint, he can go home today. CHRIS/WILFREDO Voice ID: [id number] Report ID: [id number]
[2019-06-02 08:14] VITALS: TEMP 97.2
[2019-06-02] MEDS: FOLIC ACID 1 MG TABLET PO SCH (08:27)
[2019-06-02] MEDS: VALSARTAN 80 MG TAB PO SCH (08:27)
[2019-06-02] MEDS: POTASSIUM CL SA 10 MEQ TAB PO SCH (08:27)
[2019-06-02] MEDS: VITAMIN D 1000 UNIT TAB PO SCH (08:27)
[2019-06-02] MEDS: ASPIRIN 325 MG TAB PO SCH (08:27)
[2019-06-02] MEDS: ASCORBIC ACID 500 MG TABLET PO SCH (08:27)
[2019-06-02] MEDS: AMIODARONE HCL 200 MG TAB PO SCH (08:28)
[2019-06-02] MEDS: METOPROLOL XL 100 MG TAB PO SCH (08:28)
[2019-06-02] MEDS: MULTIVITAMIN TAB PO SCH (08:28)
[2019-06-02] MEDS: DILTIAZEM HCL 60 MG TAB PO SCH ×2 (08:29→13:12)
[2019-06-02] MEDS: FUROSEMIDE 40 MG/4 ML VIAL IV SCH (08:30)
--- NOTE | 2019-06-02 08:35 | PN ---
Subjective: Currently, patient is lying in bed. He looks comfortable. He had no chest pain. No ab dominal pain. Shortness of breath improved. His current status is very well. Review of Systems: Otherwise negative. Objective: Vital Signs: Blood pressure , respiratory rate 18, pulse 58, temperature 97.2. General: Patient is alert and oriented x3. Does not look in any distress. HEENT: Atraumatic, normocephalic. PERRLA. Oral mucosa is moist. Neck: Supple. No JVD. No carotid bruits. Chest: Clear to auscultation. Good air entry. Heart: Regular rate and rhythm. S1, S2 normal. No gallop or murmur. Abdomen: Soft, nontender. No masses. No organomegaly. Obese. Positive bowel sounds. Extremities: No clubbing, no cyanosis. He has +1 edema in both lower extremities, left more than ri ght. Laboratory Data: Today, showed CBC was normal except for hemoglobin 13.5 within normal ex cept for P of 52, creatinine from yesterday night, today is pending. Cardiac enzyme were negative. BNP today is pending as well. Assessment And Plan: 1.Systolic congestive heart failure. Cardiac enzyme were negative. BNP was going up last night. T janessa is pending. We will continue patient on IV Lasix. Subjectively, patient is feeling much better . I will continue Lasix 40 twice a day. Cardiology consult requested. Echocardiogram done in [place] will not repeated. Continue patient on home medications . 2.Hypertension, well controlled. Continue patient on . 3.History of hyperlipidemia. Continue patient on Crestor 10 mg . 4.Deep vein thrombosis prophylaxis, on heparin given the insufficiency. 5.Abdominal mass on CT. I will request surgical consult. Suspicious . 6.History of non-Hodgkin lymphoma 20 years ago and he has residual remained. So we may need to obta in previous records for compression. 7.Atrial fibrillation, rate controlled. Continue patient on Xarelto 20 mg daily. 8.BMP pending this morning. We will check a followup potassium as needed. Discharge emiliano e in 1 or 2 days as he continued to improve. MERCEDEZ/WILFREDO Voice ID: [id number] Report ID: [id number]
[2019-06-02] MEDS ORDERED: VITAMIN E 400 IU CAP PO SCH (09:00)
[2019-06-02] MEDS ORDERED: POTASSIUM CL SA 10 MEQ TAB PO ONE (09:00)
--- NOTE | 2019-06-02 10:56 | CON ---
Date of Consultation: 05/31/[address] Arriaga on 05/31/2019. I saw the patient on 05/31/2019. Reason For Consultation: Congestive heart failure. History Of Present Illness: Mr. Tam is a 64-year-old male. He sees Dr. De Los Santos at [facility] for electrophysiology because of multiple issues with cardiac arrhythmias including atrial fibrillati on and ventricular tachycardia. He has had an EP study about 10 years ago, and apparently, he was to ld he could not have an ablation because of the combination of atrial fibrillation and ventricular ta chycardia. I do not have the details of that. Nevertheless, the patient is taking amiodarone, Cardi zem and metoprolol as well as Xarelto for his atrial fibrillation. His diltiazem dose is 30 mg 4 mis es a day that has recently been decreased to 3 times a day. He takes metoprolol 100 twice a day. He has recently had an increase of his amiodarone dose to 400 b.i.d. 7 days ago for 14 days. The patie nt has never had an ablation before. Does not have a pacemaker. Has known ejection fraction of 38% as of March of 2019. Has chronic systolic congestive heart failure and came in with acute exacer bation. Past Medical History: Includes AFib, CHF, hypertension. He had non-Hodgkin lymphoma about 20 years ago. Allergies: DEMEROL. Review of Systems: Negative. Social History: Negative. Family History: Negative. Medications: Include Xarelto, diltiazem, aspirin, metoprolol, valsartan, Lasix, and amiodarone. Physical Examination: General: Very pleasant, no acute distress. Vital Signs: Atrial fibrillation, rate of 80. HEENT: Negative. Neck: Supple without any bruit, lymphadenopathy, JVD, or thyromegaly. Chest: Reveals some rales in both bases. Cardiac: Revealed atrial fibrillation. Abdomen: Benign. Extremities: Revealed no clubbing, cyanosis. He had 1+ edema. Diagnostic Data: Showed a creatinine of 1.75. His INR was 2.39. BNP was 12,258. Chest x-ray showe d CHF. EKG showed AFib at 83. Ejection fraction 38% in March of 2019. Impression And Plan: Acute on chronic systolic congestive heart failure. Ejection fraction of 38%. I agree with the present regimen including diuresis. I am very concerned about the echocardiogram i n him with his ejection fraction. I recommended he discusses with his head waiter/waitress banquet in [place]. Also , I recommended that he has the aggressive issue of ablation. He is taking metoprolol, diltiazem, an d amiodarone and is still in atrial fibrillation at a rate of 83. I am afraid that this may be worse adebayo the ejection fraction and making his congestive heart failure more frequent. He will discuss th at with his head waiter/waitress banquet when he goes back and see them. His other problems include hypertension, wh ich is well controlled, and history of non-Hodgkin lymphoma 20 years ago. Apparently, there was a ma ss seen on a CT scan of his abdomen, which he is aware of including the size of that lesion. Surgica l consultation was pending, but I would not keep the patient in the hospital for that. He can certai nly go home once he feels better. CHRIS/WILFREDO Voice ID: [id number] Report ID: [id number]
[2019-06-02 11:46] VITALS: O2SAT 94
[2019-06-02] MEDS ORDERED: BISACODYL E.C. 5 MG TAB PO PRN (12:04)
[2019-06-02 13:12] VITALS: BP 108/63
--- NOTE | 2019-06-03 01:13 | DS ---
Date of Discharge: 06/02/2019 Consultants: 1.Dr. Dowling with Cardiology. 2.Dr. Etienne with Oncology. Admitting Diagnoses: 1.Acute systolic congestive heart failure. 2.Abdominal mass on CT. 3.Essential hypertension. 4.Hyperlipidemia. 5.Obesity, BMI 33. 6.History of lymphoma, abdominal in the past, status post surgery and chemotherapy. 7.Atrial fibrillation, chronic, permanent. Discharge Diagnoses: 1.Systolic congestive heart failure, improved. 2.Abdominal mass 2.8 cm, likely residual from previous lymphoma, needs outpatient workup including P ET scan and biopsy. 3.Essential hypertension, stable. 4.History of hyperlipidemia, on Crestor. 5.History of non-Hodgkin's lymphoma 20 years ago. 6.Atrial fibrillation chronic permanent, rate controlled on Xarelto. 7.Mixed hyperlipidemia, on statin. 8.Obesity, BMI 33.6. 9.Chronic kidney disease stage 3. Hospital Course: The patient is a 64-year-old male with past medical history of congestive heart stacy lure, atrial fibrillation on metoprolol, amiodarone, and Cardizem, takes aspirin and Xarelto. Also h as hypertension, hyperlipidemia, history of non-Hodgkin's lymphoma with previous surgery and chemothe rapy. Patient came in with congestive heart failure exacerbation, was diuresed, had good response to diuretics, had negative urinary output and fluid. His kidney function remained stable. He does hav e some level of chronic kidney disease stage 3. BNP improved. White count remained stable. There w ere no signs of sepsis. His imaging studies including chest x-ray showed asymmetric CHF pattern. He was seen by Cardiology, Dr. Dowling. His EF previously was low at 38% in March 2019. He was in structed to increase his Lasix on as-needed basis when he has gained over 3 pounds when he weighs him self daily or he has shortness of breath as well as to contact his doctor. 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 Otherwise, the patient did well. He did have incidental finding of a 2.8 cm abdominal mass, which was soft tissue, dystrophic calcifi cations in the central mesenteric region. Previous surgical clips in the region were noted as well. This is thought to be due to his history of lymphoma and previous residual tumor. There is no prior imaging for comparison. Patient did not wish to have any further workup done as an inpatient. He p referred outpatient workup. Did consult with Dr. Etienne with Oncology. She agreed with outpatie nt followup. Patient was given her information. He will be scheduled for PET scan and then further biopsy by Interventional Radiology versus General Surgery under guidance, which will likely be done a [facility]. Patient understands that this may be recurrence of his tumor versus possible residual tumor, understands the risks of delaying diagnosis, understands this may be malignant, can p ossibly spread leading to further morbidity, mortality. at the bedside and they both voiced und erstanding, agreeable to follow up as an outpatient. Patient was then cleared for discharge, sent ho sd in a stable condition. Activity: As tolerated. Medications: As per medication reconciliation list. Diet: Low-sodium, fluid-restricted diet. Followup: Follow up with primary care physician in 2-3 days. Follow up with air hoist operator, Dr. Elliott renee in 2 weeks. Follow up with oncologist Dr. Etienne in 2 weeks. Return to ER for worsening cond ition. Physical Examination: General: Awake, alert, and oriented x3. Elderly male. Obese. CV: S1, S2 irregular irregularly. Respiratory: Moving air well bilaterally. Abdomen: Abdomen is soft, nontender, nondistended. Positive bowel sounds. Extremities: No clubbing, cyanosis, or edema. Neurologic: Nonfocal. Total time spent discharging the patient was 37 minutes. /WILFREDO Voice ID: [id number] Report ID: [id number]
== END 2019-06-02 15:31 | disposition home or self-care (01) | DRG 291 ==
LOC: ER 10:18 → ERHOLD 14:53 → 4TH 15:31
PROVIDERS: ADMIT Internal Medicine; ATTEND Internal Medicine
DX: I13.0 Hypertensive heart and chronic kidney disease with heart failure and stage 1 through stage 4 chronic kidney disease, or unspecified chronic kidney disease (principal); I50.23 Acute on chronic systolic (congestive) heart failure; I48.20 Chronic atrial fibrillation, unspecified; N18.3 Chronic kidney disease, stage 3 (moderate); R19.00 Intra-abdominal and pelvic swelling, mass and lump, unspecified site; E78.5 Hyperlipidemia, unspecified; Z85.72 Personal history of non-Hodgkin lymphomas; Z79.01 Long term (current) use of 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; E78.2 Mixed hyperlipidemia; E66.9 Obesity, unspecified; Z68.33 Body mass index [BMI] 33.0-33.9, adult
CPT/HCPCS: 36415; 71045; 74176; 80048; 80053; 80076; 82550; 82553; 82947; 83735; 83880; 84484; 85025; 85610; 87070; 87205; 93005; 94640; 96374; 99285; J1644; J1940

== ENCOUNTER → 2023-08-02 | Emergency (ER) | payer OTHER ==
[~2023-08-02] MED LIST: TDAP (DIPHTH,PERTUSS(ACELL),TET VAC) 0.5 ML VIAL IMVAC ONE
--- NOTE | 2023-08-02 22:25 | ER ---
Nurse's Notes [facility] Name: Jad Tam Age: 68 yrs Sex: Male : 1955 Arrival Date: 08/02/2023 Time: 20:02 Bed 17 Private MD: Diagnosis: Right ring fingertip laceration Presentation: 08/02 20:10 Chief complaint: Patient states: Pt reports cutting the tip of his middle finger while la4 shaving potatoes. Pt states he takes blood thinners for atrial fibrillation. Bleeding not controlled at this time although wrapped. 20:52 Coronavirus screen: Vaccine status: Client denies travel out of the [place] in the last 14 la4 days. At this time, the client does not indicate any symptoms associated with coronavirus-19. Ebola Screen: Patient negative for fever greater than or equal to 101.5 degrees Fahrenheit, and additional compatible Ebola Virus Disease symptoms Patient denies exposure to infectious person. Patient denies travel to an Ebola-affected area in the 21 days before illness onset. No symptoms or risks identified at this time. Complicating Factors: There are no complicating factors for this patient. Initial Sepsis Screen: Does the patient meet any 2 criteria? No. Patient's initial sepsis screen is negative. Does the patient have a suspected source of infection? No. Patient's initial sepsis screen is negative. Risk Assessment: Do you want to hurt yourself or someone else? Patient reports no desire to harm self or others. Onset of symptoms was August 02, 2023 at 19:30. Care prior to arrival: pressure applied and wrapped in gauze and towels. 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 Transition of care: patient was not received from another setting of care. 20:52 Method Of Arrival: Ambulatory la4 20:52 Acuity: CJ 4 la4 Triage Assessment: 20:10 General: Appears in no apparent distress. Behavior is calm, cooperative, appropriate la4 for age. Pain: Complains of pain in right middle finger, palmar aspect of distal phalanx of right middle finger and right middle fingernail Pain does not radiate. Pain currently is 5 out of 10 on a pain scale. Quality of pain is described as throbbing, Pain began suddenly, 30 min ago. Is continuous, Alleviated by Aggravated by touch. Injury Description: Laceration sustained to palmar aspect of distal phalanx of right middle finger and right middle fingernail is clean, superficial, bleeding profusely, was sustained 30-60 minutes ago. is bleeding moderately a dressing was applied. Historical: - Allergies: 20:56 Demerol; la4 - Home Meds: 20:56 furosemide 80 mg Oral tab 1 tab once daily [Active]; la4 - PMHx: 20:56 Atrial Fib; CHF; Hypertension; non hodgkins lymphoma 20 years ago; psoriasis; la4 Historical Immunization: - Administered Vaccines 20:50 Tetanus-Diphtheria Toxoid IM Adult 0.5 ml la4 Donor Relations Associate: [employer]; Exp: SunNov 28 2024; Lot #: [id number]; Series: 1 of ; Patient Consent: Obtained; Date/Time: ; Source Name: Jad Tam; Source Relationship: Self; Address Information: [address] [place] [address]; ; Education: Provided; VIS Presented Date: ; VIS Publication: Tetanus/Diphtheria (Td) Vaccine VIS 10/17/2016 (historic) - Immunization history:: Last tetanus immunization: unknown. - Social history:: Smoking status: Patient denies any tobacco usage or history of. - Code Status:: Full code. Screenin:02 [facility] ED Fall Risk Assessment (Adult) History of falling in the last 3 months, la4 including since admission No falls in past 3 months (0 pts) Confusion or Disorientation No (0 pts) Intoxicated or Sedated No (0 pts) Impaired Gait No (0 pts) Mobility Assist Device Used No (0 pt) Altered Elimination No (0 pt) Score/Fall Risk Level 0 - 2 = Low Risk Oriented to surroundings, Educated pt \T\ family on fall prevention, incl call for assistance when getting out of bed, Provided non-skid footwear, Hourly rounding (assess needs \T\ fall precautionary measures) done. Abuse screen: Denies threats or abuse. Denies injuries from another. Nutritional screening: No deficits noted. Tuberculosis screening: No symptoms or risk factors identified. Assessment: 20:20 Musculoskeletal: No deficits noted. No signs and/or symptoms reported regarding the la4 musculoskeletal system. Circulation, motion, and sensation intact. Capillary refill < 3 seconds, is brisk, Range of motion: intact in all extremities, small laceration to the tip of the middle finger sustained while peeling potatoes. No loss of function of finger noted. 20:20 General: Appears in no apparent distress. Behavior is calm, cooperative, appropriate la4 for age. 21:50 Reassessment: No changes from previously documented assessment. Patient and/or family la4 updated on plan of care and expected duration. Pain level reassessed. Assist Dr. Jolley to add more Surgicel and new gauze to the tip of the finger and slight compression applied with Coban. No distress noted. Neuro: [place] Agitation-Sedation Scale (RASS): 0 - Alert and Calm Level of Consciousness is awake, alert, obeys commands, Oriented to person, place, time, situation. Cardiovascular: No deficits noted. Cardiovascular: Denies chest pain, Capillary refill < 3 seconds is brisk Rhythm is atrial fibrillation. Respiratory: No deficits noted. GI: No signs and/or symptoms were reported involving the gastrointestinal system. : No signs and/or symptoms were reported regarding the genitourinary system. Injury Description: Laceration sustained to right middle fingernail is clean, 0.5 to 2.5 cm long, was sustained 1-2 hours ago. is bleeding moderately. Vital Signs: 20:10 BP 133 / 78; Pulse 67; Resp 16; Temp 98.6; Pulse Ox 100% ; Pain 5/10; la4 20:18 BP 133 / 78; Pulse 67; Resp 22; Temp 97.8; Pulse Ox 100% ; Weight 81.65 kg; Height 5 ls5 ft. 7 in. ; 21:00 BP 121 / 61; Pulse 66; Resp 18; Pulse Ox 99% ; la4 22:00 BP 118 / 53; Pulse 50; Resp 16; Pulse Ox 99% ; la4 22:31 BP 132 / 53; Pulse 55; Resp 16; Pulse Ox 99% ; la4 20:18 Body Mass Index 28.19 (81.65 kg, 170.18 cm) ls5 20:10 Pain Scale: Adult la4 20:10 ringer tip pain described to be throbbing la4 [place] Coma Score: 22:00 Eye Response: spontaneous(4). Motor Response: obeys commands(6). Verbal Response: la4 oriented(5). Total: 15. ED Course: 20:10 Arm band placed on left wrist. Patient placed in an exam room, on a stretcher, on la4 rn cardiac cath, on pulse oximetry, hand wrapped in towels and physician notified. Pressure dressing applied. hand wrapped in towels. 20:17 Patient arrived in ED. jj6 20:20 No apparent distress. la4 20:20 Assist provider with laceration repair Dressed with 4X4s, surgicel. la4 20:20 Assist provider with laceration repair Performed by Steven Jolley MD Dressed with 4X4s, la4 surgicel. Patient did not have IV access during this emergency room visit. 20:22 Steven Jolley MD is Attending Physician. kdr 20:30 Michael Aguilar, RN is Primary Nurse. la4 20:56 Triage completed. la4 22:02 Patient has correct armband on for positive identification. Bed in low position. Call la4 light in reach. Side rails up X 1. Provided Education on: plan of care . Client placed on continuous cardiac and pulse oximetry monitoring. NIBP monitoring applied. right arm elevated on pillow and blankets given. Administered Medications: 20:50 Drug: Tetanus-Diphtheria Toxoid IM Adult 0.5 ml IM once; Provide Vaccine Information la4 Statement (VIS). {Donor Relations Associate: [employer]; Exp: SunNov 28 2024; Lot #: [id number]; Series: 1 of 1; Patient Consent: Obtained; Date/Time: ; Source Name: Jad Tam; Source Relationship: Self; Address Information: [address] [place] [id number]; ; Education: Provided; VIS Presented Date: ; VIS Publication: Tetanus/Diphtheria (Td) Vaccine VIS 10/17/2016 (historic)} Route: IM; Site: right deltoid; Medication: 22:00 VIS not applicable for this client. la4 Outcome: 22:24 Discharge ordered by . kdr 22:51 Discharged to home with significant other, la4 22:51 Condition: stable 22:51 Discharge instructions given to patient, significant other, Instructed on discharge instructions, follow up and referral plans. wound care, keeping dressing to the right hand dry Demonstrated understanding of instructions, follow-up care, 23:56 Patient left the ED. la4 Signatures: Steven Jolley MD MD kdr Jeffries, Jennifer jj6 Richi Garcia 5 Michael Aguilar RN RN la4 Corrections: (The following items were deleted from the chart) 20: 20:52 Chief complaint: Patient states: Pt reports cutting the tip of his middle finger la4 while shaving potatoes. Pt states he takes blood thinners for atrial fibrillation. Bleeding not controlled at this time although wrapped la4 20:59 20:52 Coronavirus screen: Vaccine status: Client denies travel out of the [place] in the la4 last 14 days. At this time, the client does not indicate any symptoms associated with coronavirus-19. la4 20:59 20:56 General: Appears in no apparent distress. Behavior is calm, cooperative, la4 appropriate for age, mt4 20:59 20:56 Pain: Complains of pain in right middle finger, palmar aspect of distal phalanx la4 of right middle finger and right middle fingernail Pain does not radiate. Pain currently is 5 out of 10 on a pain scale. Quality of pain is described as throbbing, Pain began suddenly, 30 min ago. Is continuous, Alleviated by Aggravated by touch la4 20:59 20:56 Injury Description: Laceration sustained to palmar aspect of distal phalanx of la4 right middle finger and right middle fingernail is clean, superficial, bleeding profusely, was sustained 30-60 minutes ago. is bleeding moderately a dressing was applied la4
--- NOTE | 2023-08-02 22:25 | EDPHYS ---
Physician Documentation [facility] Name: Jad Tam Age: 68 yrs Sex: Male : 1955 Arrival Date: 08/02/2023 Time: 20:02 Bed 17 Private MD: ED Physician Steven Jolley HPI: 08/02 20:23 This 68 yrs old Male presents to ER via Unassigned with complaints of Laceration To kdr Hand. 20:26 Patient states that at 10 AM today he was cutting food with a mandolin at home when he kdr dropped the tip of his finger off. He has since then had some intermittent but persistent bleeding. This evening it seemed to be worse and the brought him to the ED. Patient is otherwise not in any acute distress.. Onset: The symptoms/episode began/occurred suddenly, at 10:00. Severity of symptoms: At their worst the symptoms were very mild mild in the emergency department the symptoms are unchanged. The patient has not experienced similar symptoms in the past. The patient has not recently seen a physician. Historical: - Allergies: 20:56 Demerol; la4 - Home Meds: 20:56 furosemide 80 mg Oral tab 1 tab once daily [Active]; la4 - PMHx: 20:56 Atrial Fib; CHF; Hypertension; non hodgkins lymphoma 20 years ago; psoriasis; la4 - Immunization history:: Last tetanus immunization: unknown. - Social history:: Smoking status: Patient denies any tobacco usage or history of. - Code Status:: Full code. ROS: 20:26 Constitutional: Negative for fever, chills, and weight loss, Eyes: Negative for injury, kdr pain, redness, and discharge, 20:26 MS/extremity: Positive for laceration, pain, of the palmar aspect of distal phalanx of right middle finger, Exam: 20:26 Constitutional: This is a well developed, well nourished patient who is awake, alert, kdr and in no acute distress. 20:26 Musculoskeletal/extremity: Extremities: grossly normal except: noted in the palmar aspect of distal phalanx of right middle finger: laceration, pain, tenderness, Vital Signs: 20:10 BP 133 / 78; Pulse 67; Resp 16; Temp 98.6; Pulse Ox 100% ; Pain 5/10; la4 20:18 BP 133 / 78; Pulse 67; Resp 22; Temp 97.8; Pulse Ox 100% ; Weight 81.65 kg; Height 5 ls5 ft. 7 in. ; 21:00 BP 121 / 61; Pulse 66; Resp 18; Pulse Ox 99% ; la4 22:00 BP 118 / 53; Pulse 50; Resp 16; Pulse Ox 99% ; la4 22:31 BP 132 / 53; Pulse 55; Resp 16; Pulse Ox 99% ; la4 20:18 Body Mass Index 28.19 (81.65 kg, 170.18 cm) ls5 20:10 Pain Scale: Adult la4 20:10 ringer tip pain described to be throbbing la4 [place] Coma Score: 22:00 Eye Response: spontaneous(4). Motor Response: obeys commands(6). Verbal Response: la4 oriented(5). Total: 15. Laceration: 20:26 Wound Repair of Patient has a 3 mm x 6 mm fingertip avulsion. The flap is not present. kdr laceration to palmar aspect of distal phalanx of right middle finger. Distal neuro/vascular/tendon intact. Anesthesia: Viscous lidocaine to the affected area with good pain control with 1% lidocaine. Wound prep: Copious irrigation. Skin closed with Surgicel and 4 x 4 with Coban wrap Prolene using simple sutures and sterile technique. Dressed with As above Surgicel with Coban wrap. Patient tolerated well. MDM: 22:24 Patient medically screened. kdr 22:37 Data reviewed: vital signs, nurses notes, lab test result(s), radiologic studies. kdr Administered Medications: 20:50 Drug: Tetanus-Diphtheria Toxoid IM Adult 0.5 ml IM once; Provide Vaccine Information la4 Statement (VIS). {Agricultural Extension Officer: [employer]; Exp: SunNov 28 2024; Lot #: [id number]; Series: 1 of 1; Patient Consent: Obtained; Date/Time: ; Source Name: Jad Tam; Source Relationship: Self; Address Information: [address] [place] [address]; ; Education: Provided; VIS Presented Date: ; VIS Publication: Tetanus/Diphtheria (Td) Vaccine VIS 10/17/2016 (historic)} Route: IM; Site: right deltoid; Disposition Summary: 08/02/23 22:24 Discharge Ordered Notes: Location: Home kdr Problem: new kdr Symptoms: have improved kdr Condition: Stable kdr Diagnosis - Right ring fingertip laceration kdr Followup: kdr - With: Private Physician - When: 2 - 3 days - Reason: If symptoms return, Further diagnostic work-up, Recheck today's complaints, Continuance of care, Re-evaluation by your physician Discharge Instructions: - Discharge Summary Sheet kdr - Nonsutured Laceration Care kdr Forms: - Medication Reconciliation Form kdr - Thank You Letter kdr - Patient Portal Instructions kdr - Leadership Thank You Letter kdr Signatures: Steven Jolley MD MD kdr Michael Aguilar RN RN la4
[2023-08-03 02:04] VITALS: BP 132/53; TEMP 97.8; O2SAT 99
== END ==
LOC: ER 20:02
PROC: 0JQJ3ZZ Repair Right Hand Subcutaneous Tissue and Fascia, Percutaneous Approach (ICD-10-PCS; principal; 2023-08-02)
DX: S61.214A Laceration without foreign body of right ring finger without damage to nail, initial encounter (principal); W26.8XXA Contact with other sharp object(s), not elsewhere classified, initial encounter; Y93.G1 Activity, food preparation and clean up; I48.91 Unspecified atrial fibrillation; I11.0 Hypertensive heart disease with heart failure; I50.9 Heart failure, unspecified; L40.9 Psoriasis, unspecified; Z23 Encounter for immunization; Z88.5 Allergy status to narcotic agent; Z85.72 Personal history of non-Hodgkin lymphomas
CPT/HCPCS: 90471

== ENCOUNTER → 2023-08-06 | Emergency (ER) | payer OTHER ==
[~2023-08-06] MED LIST changes: +LIDOCAINE 1% 20 ML MDV ONE; +ONDANSETRON 4 MG (ODT) TAB ONE; +SMZ./TMP. 800/160 MG TABLET ONE; -TDAP (DIPHTH,PERTUSS(ACELL),TET VAC) 0.5 ML VIAL IMVAC ONE; +TRAMADOL HCL 50 MG TAB ONE
--- NOTE | 2023-08-06 21:31 | ER ---
Nurse's Notes [facility] Name: Jad Tam Age: 68 yrs Sex: Male : 1955 Arrival Date: 08/06/2023 Time: 19:56 Bed 12 Private MD: Diagnosis: Right right finger tip laceration, subsequent encounter, ;Right ring finger pain secondary to laceration Presentation: 08/06 20:11 Chief complaint: Patient states: Pt c/o increased pain in right ring finger that tl4 radiates up his right arm. Pt cut tip of finger off on 08/01/23 and was evaluated in this ED. Pt states pain got significantly worse today. Coronavirus screen: Vaccine status: Patient reports receiving the 2nd dose of the covid vaccine. Ebola Screen: Patient negative for fever greater than or equal to 101.5 degrees Fahrenheit, and additional compatible Ebola Virus Disease symptoms Patient denies exposure to infectious person. Patient denies travel to an Ebola-affected area in the 21 days before illness onset. No symptoms or risks identified at this time. Initial Sepsis Screen: Does the patient meet any 2 criteria? No. Patient's initial sepsis screen is negative. Does the patient have a suspected source of infection? No. Patient's initial sepsis screen is negative. Risk Assessment: Do you want to hurt yourself or someone else? Patient reports no desire to harm self or others. Onset of symptoms was August 06, 2023 at 14:00. 20:11 Method Of Arrival: Ambulatory tl4 20:11 Acuity: CJ 3 tl4 Triage Assessment: 20:14 General: Appears uncomfortable, Behavior is calm, cooperative. Pain: Complains of pain tl4 in right hand and right arm. EENT: No deficits noted. No signs and/or symptoms were reported regarding the EENT system. Neuro: No deficits noted. Cardiovascular: No deficits noted. Denies chest pain, diaphoresis, lightheadedness, palpitations. Respiratory: No deficits noted. Denies cough, shortness of breath. GI: No deficits noted. No signs and/or symptoms were reported involving the gastrointestinal system. : No deficits noted. No signs and/or symptoms were reported regarding the genitourinary system. Historical: - Allergies: 20:13 Demerol; tl4 - PMHx: 20:13 Atrial Fib; CHF; Hypertension; non hodgkins lymphoma 20 years ago; psoriasis; tl4 - Immunization history:: Adult Immunizations unknown, Last tetanus immunization: up to date. - Social history:: Smoking status: Patient denies any tobacco usage or history of. - Family history:: not pertinent. Screenin:00 [facility] ED Fall Risk Assessment (Adult) History of falling in the last 3 months, vc1 including since admission No falls in past 3 months (0 pts) Confusion or Disorientation No (0 pts) Intoxicated or Sedated No (0 pts) Impaired Gait No (0 pts) Mobility Assist Device Used No (0 pt) Altered Elimination No (0 pt) Score/Fall Risk Level 0 - 2 = Low Risk Oriented to surroundings, Maintained a safe environment, Educated pt \T\ family on fall prevention, incl call for assistance when getting out of bed. Abuse screen: Denies threats or abuse. Nutritional screening: No deficits noted. Tuberculosis screening: No symptoms or risk factors identified. 22:34 [facility] ED Fall Risk Assessment (Adult) History of falling in the last 3 months, cm10 including since admission No falls in past 3 months (0 pts) Confusion or Disorientation No (0 pts) Intoxicated or Sedated No (0 pts) Impaired Gait No (0 pts) Mobility Assist Device Used No (0 pt) Altered Elimination No (0 pt) Score/Fall Risk Level 0 - 2 = Low Risk Oriented to surroundings, Maintained a safe environment, Hourly rounding (assess needs \T\ fall precautionary measures) done. Abuse screen: Denies threats or abuse. Denies injuries from another. Nutritional screening: No deficits noted. Tuberculosis screening: No symptoms or risk factors identified. Assessment: 22:00 Reassessment: see triage assessment. vc1 Vital Signs: 20:11 BP 120 / 64; Pulse 67; Resp 16; Temp 97.7(O); Pulse Ox 100% on R/A; Weight 81.65 kg; tl4 Height 5 ft. 7 in. ; Pain 8/10; 20:11 Body Mass Index 28.19 (81.65 kg, 170.18 cm) tl4 20:11 Pain Scale: Adult tl4 ED Course: 20:00 Patient arrived in ED. gm2 20:02 Abbe Flannery MD is Attending Physician. sp4 20:13 Triage completed. tl4 20:14 Arm band placed on left wrist. tl4 22:00 Assist provider with nerve block (digital) of right ring finger Set up for procedure. vc1 Performed by Abbe Flannery MD Patient tolerated well. 22:00 Patient did not have IV access during this emergency room visit. vc1 Administered Medications: 21:27 CANCELLED (Physician Discretion): [id number] mg PO once sp4 22:00 Drug: Lidocaine Infiltration (1 %) 20 ml 20 ml Infiltration once; to bedside {Note: vc1 Administered by Dr. Flannery.} Volume: 20 ml; Route: Infiltration; 22:16 Drug: Trimethoprim-Sulfamethoxazole PO (160 mg-800 mg (DS) 1 tablet PO once Route: PO; cm10 22:33 Follow up: Response: No adverse reaction cm10 22:16 Drug: traMADol PO 100 mg PO once Route: PO; cm10 22:33 Follow up: Response: No adverse reaction cm10 22:16 Drug: Ondansetron PO 4 mg PO once Route: PO; cm10 22:33 Follow up: Response: No adverse reaction cm10 Medication: 22:34 VIS not applicable for this client. cm10 Outcome: 21:29 Discharge ordered by . sp4 22:35 Discharged to home ambulatory, vc1 22:35 Condition: good 22:35 Discharge instructions given to patient, significant other, Instructed on discharge instructions, follow up and referral plans. medication usage, Demonstrated understanding of instructions, follow-up care, medications, Prescriptions given X 2, 22:36 Patient left the ED. vc1 Signatures: Kelsy Elizondo RN RN vc1 Abbe Flannery MD MD sp4 Zulma Valdez RN RN 10 Lori Redmond 2 Jerardo Bunch tl4
--- NOTE | 2023-08-06 21:31 | EDPHYS ---
Physician Documentation [facility] Name: Jad Tam Age: 68 yrs Sex: Male : 1955 Arrival Date: 08/06/2023 Time: 19:56 Bed 12 Private MD: ED Physician Abbe Flannery HPI: 08/06 20:02 This 68 yrs old Male presents to ER via Unassigned with complaints of Hand sp4 Pain. 21:31 Patient presents with pain out of right ring finger, secondary to the laceration on sp4 5 days ago. Patient has sustained skin avulsion to the tip of her right ring finger, which was managed here in the emergency room along with Surgicel dressing, patient takes Eliquis daily. Patient presents today because pain has worsened and patient is concerned about fingertip infection. . Historical: - Allergies: 20:13 Demerol; tl4 - PMHx: 20:13 Atrial Fib; CHF; Hypertension; non hodgkins lymphoma 20 years ago; psoriasis; tl4 - Immunization history:: Adult Immunizations unknown, Last tetanus immunization: up to date. - Social history:: Smoking status: Patient denies any tobacco usage or history of. - Family history:: not pertinent. ROS: 21:31 Constitutional: Negative for fever, chills, and weight loss, positive for right ring sp4 finger pain 21:31 All other systems are negative, Exam: 21:31 Constitutional: This is a well developed, well nourished patient who is awake, alert, sp4 and in no acute distress. Head/Face: Normocephalic, atraumatic. Eyes: Pupils equal round and reactive to light, extra-ocular motions intact. Lids and lashes normal. Conjunctiva and sclera are not injected. Cornea within normal limits. Periorbital areas with no swelling, redness, or edema. ENT: Nares patent. No nasal discharge, no septal abnormalities noted. Tympanic membranes are normal and external auditory canals are clear. Oropharynx with no redness, swelling, or masses, exudates, or evidence of obstruction, uvula midline. Mucous membranes moist. Neck: Trachea midline, no thyromegaly or masses palpated, and no cervical lymphadenopathy. Supple, full range of motion without nuchal rigidity, or vertebral point tenderness. Chest/axilla: Normal chest wall appearance and motion. Nontender with no deformity. No lesions are appreciated. Cardiovascular: Regular rate and rhythm with a normal S1 and S2. No gallops, murmurs, or rubs. Normal PMI, no JVD. No pulse deficits. Respiratory: Lungs have equal breath sounds bilaterally, clear to auscultation and percussion. No rales, rhonchi or wheezes noted. No increased work of breathing, no retractions or nasal flaring. Abdomen/GI: Soft, non-tender, with normal bowel sounds. No distension or tympany. No guarding or rebound. No evidence of tenderness throughout. Back: No spinal tenderness. No costovertebral tenderness. Skin: Warm, dry with normal turgor. Normal color with no rashes, no lesions, and no evidence of cellulitis. MS/ Extremity: Pulses equal, no cyanosis. Neurovascular intact. Full, normal range of motion. Positive right sitting finger fingertip avulsion, intact fingernail, no active bleeding, no sign of infection at this time Neuro: Awake and alert, GCS 15, oriented to person, place, time, and situation. Cranial nerves II-XII grossly intact. Motor strength 5/5 in all extremities. Sensory grossly intact. Psych: Awake, alert, with orientation to person, place and time. Behavior, mood, and affect are within normal limits Vital Signs: 20:11 BP 120 / 64; Pulse 67; Resp 16; Temp 97.7(O); Pulse Ox 100% on R/A; Weight 81.65 kg; tl4 Height 5 ft. 7 in. ; Pain 8/10; 20:11 Body Mass Index 28.19 (81.65 kg, 170.18 cm) tl4 20:11 Pain Scale: Adult tl4 Procedures: 21:31 Performed Wound Care . Digital block performed with 1% lidocaine. Fingertip was heavily sp4 irrigated with lidocaine and peroxide. Old Surgicel was removed. The fingertip appears healthy with granulation tissue. Sterile dressing was applied with Xeroform, Kerlix. Dressing changes advised daily . MDM: 20:20 Patient medically screened. sp4 21:31 Differential diagnosis: contusion, abrasion, tendonitis. Data reviewed: vital signs, sp4 nurses notes, old medical records. ED course: Able for discharge home with daily dressing changes. 08/06 20:19 Order name: Dressing - Wound; Complete Time: 22:33 sp4 08/06 20:19 Order name: Gloves, Sterile; Complete Time: :33 sp4 08/06 20:19 Order name: Setup Suture Tray; Complete Time: 22:33 sp4 Administered Medications: 21:27 CANCELLED (Physician Discretion): [id number] mg PO once sp4 22:00 Drug: Lidocaine Infiltration (1 %) 20 ml 20 ml Infiltration once; to bedside {Note: vc1 Administered by Dr. Flannery.} Volume: 20 ml; Route: Infiltration; 22:16 Drug: Trimethoprim-Sulfamethoxazole PO (160 mg-800 mg (DS) 1 tablet PO once Route: PO; cm10 22:33 Follow up: Response: No adverse reaction cm10 22:16 Drug: traMADol PO 100 mg PO once Route: PO; cm10 22:33 Follow up: Response: No adverse reaction cm10 22:16 Drug: Ondansetron PO 4 mg PO once Route: PO; cm10 22:33 Follow up: Response: No adverse reaction cm10 Disposition Summary: 08/06/23 21:29 Discharge Ordered Notes: Location: Home sp4 Problem: new sp4 Symptoms: have improved sp4 Condition: Stable sp4 Diagnosis - Right right finger tip laceration, subsequent encounter, sp4 - Right ring finger pain secondary to laceration sp4 Followup: sp4 - With: Private Physician - When: 7 - 10 days - Reason: Recheck today's complaints Discharge Instructions: - Discharge Summary Sheet sp4 - Laceration Care, Adult, [id number] sp4 Forms: - Patient Portal Instructions sp4 Prescriptions: - Tramadol 50 mg Oral Tablet - take 1 tablet ORAL route every 8 hours as needed; 12 tablet; Refills: 0, sp4 Product Selection Permitted - Bactrim DS 800-160 mg Oral Tablet - take 1 tablet ORAL route every 12 hours for 10 days; 20 tablet; Refills: 0, sp4 Product Selection Permitted Signatures: Kelsy Elizondo RN RN vc1 Abbe Flnanery MD MD sp4 Zulma Valdez RN RN cm10 LogdahlJerardo tl4 Corrections: (The following items were deleted from the chart) 21:27 20:20 Ibuprofen PO 400 mg PO once ordered. sp4 sp4
[2023-08-07 02:57] VITALS: BP 120/64; TEMP 97.7; O2SAT 100
== END ==
LOC: ER 19:56
DX: M79.644 Pain in right finger(s) (principal); S61.214D Laceration without foreign body of right ring finger without damage to nail, subsequent encounter; Z88.5 Allergy status to narcotic agent
CPT/HCPCS: Q0162; J2001